=== PATIENT | male | born 1935 | race Caucasian/White ===

== ENCOUNTER → 2019-06-16 14:26 | Outpatient (CLI) | payer MEDICARE, OTHER, SELFPAY ==
--- NOTE | ~2019-06-16 | CT_ITS ---
EXAMINATION: CT cervical spine [facility] EXAM DATE: 06/16/2019 15:07 INDICATION: Partial bilateral paralysis. Neck and right shoulder pain. TECHNIQUE: Spiral CT of the cervical spine was performed without contrast. Axial images were reviewe d. Coronal and sagittal reformatted images were also reviewed. The dose-length product (DLP) for thi s examination was 341.78 mGy-cm. The exposure was tailored according to patient size (auto mA exposu re control), and iterative reconstruction (ASIR) was used as additional dose reduction technique. ere is no prior study for comparison. FINDINGS: There is moderate to severe disc disease C5-6 and C6-7, moderate at C3-4 and 4-5 and C7-T1 . The vertebral bodies are aligned in the AP dimension. The odontoid process is intact. The lateral masses of C1 line up with C2. Prevertebral soft tissue and pre-dens space are within normal limits. T here are no acute fractures identified. Paraspinal soft tissue is unremarkable. There is cardiomegal y. Level by level evaluation: C2-C3: Disc does not extend beyond the endplate margin. Uncovertebral joint arthropathy: Mild bilateral. Facet joint arthropathy: Moderate right, mild to moderate left. Neural foraminal stenosis: Mild bilateral. Central canal stenosis: No stenosis. C3-C4: There is a mild diffuse disc bulge. Uncovertebral joint arthropathy: Moderate left, mild to moderate right. Facet joint arthropathy: Severe left, moderate right. Neural foraminal stenosis: Moderate to severe left, mild to moderate right. Central canal stenosis: Mild. C4-C5: There is a mild diffuse disc bulge. Uncovertebral joint arthropathy: Moderate right, mild to moderate left. Facet joint arthropathy: Severe bilateral. Neural foraminal stenosis: Moderate left, mild to moderate right. Central canal stenosis: Mild. C5-C6: There is a moderate diffuse disc bulge. Uncovertebral joint arthropathy: Severe right, moderate to severe left. Facet joint arthropathy: Moderate bilateral. Neural foraminal stenosis: Moderate to severe bilateral. Central canal stenosis: Moderate. Central canal measures 6 mm in mid sagittal AP diameter . C6-C7: There is a moderate diffuse disc bulge. Uncovertebral joint arthropathy: Severe bilateral. Facet joint arthropathy: Moderate bilateral. Neural foraminal stenosis: Moderate to severe bilateral. Central canal stenosis: Moderate . Central canal measures 6 mm in mid sagittal AP diameter . C7-T1: There is a mild to moderate diffuse disc bulge. Uncovertebral joint arthropathy: Mild to moderate bilateral. Facet joint arthropathy: Moderate to severe bilateral. Neural foraminal stenosis: Moderate bilateral. Central canal stenosis: Mild. IMPRESSION: Advanced cervical spondylosis as detailed above. Reviewed, dictated and finalized at location A. X SOLARIS ADMINISTRATOR
== END ==
PROVIDERS: Visit Provider Orthopaedic Surgery
DX: G83.9 Paralytic syndrome, unspecified (principal); M47.892 Other spondylosis, cervical region
CPT/HCPCS: 72125

== ENCOUNTER 2019-11-03 11:53 | Inpatient (IN) | payer MEDICARE, OTHER, SELFPAY ==
[2019-11-03] VITALS (30 sets, daily range): BP systolic 121–161; BP diastolic 54–133; PULSE 37–68; RESP 12–20; TEMP 36.3–36.8; O2SAT 96–100; BMI 34.4
--- NOTE | ~2019-11-03 | XR_ITS ---
EXAMINATION: XR chest 1V portable DATE: 11/03/2019 12:27 INDICATION: Shortness of breath. TECHNIQUE: A single frontal view of the chest was obtained. COMPARISON: Chest 2 views 03/16/2019, CT abdomen and pelvis 02/07/2016 FINDINGS: Sensitivity is decreased by obesity. There is chronic mild elevation of left hemidiaphragm. There are mild airspace opacities in the lower lung zones. No pleural effusion or pneumothorax. Card iomegaly is noted. IMPRESSION: 1. Mild airspace opacities in the lower lung zones, consistent with atelectasis versus pneumonia. 2. Cardiomegaly. Reviewed, dictated and finalized at location A.
--- NOTE | ~2019-11-03 | US_ITS ---
EXAMINATION: US renal BI DATE: 11/04/2019 14:54 INDICATION: Decreased kidney function. TECHNIQUE: Multiple ultrasound grayscale images of the kidneys were obtained. COMPARISON: CT abdomen and pelvis 02/07/2016 FINDINGS: The right kidney measures 10.0 x 5.9 x 5.7 cm. The left kidney measures 10.5 x 7.3 x 4.7 cm. The kidn eys demonstrate normal parenchymal echogenicity. There are cysts in left kidney measuring up to 4.2 c m. There is no hydronephrosis. The bladder is normal. IMPRESSION: 1. Normal kidney sizes. No hydronephrosis. Reviewed, dictated and finalized at location A.
--- NOTE | ~2019-11-03 | US_ITS ---
EXAMINATION: US venous doppler [facility] DATE: 11/04/2019 14:54 INDICATION: Lower limb edema. TECHNIQUE: Grayscale ultrasound images without and with compression and Doppler ultrasound images of the bilateral lower extremity veins were obtained. COMPARISON: Ultrasound 01/22/2017 FINDINGS: The visualized portions of right common femoral vein, profunda (deep) femoral vein, femoral vein, pop liteal vein, peroneal veins, posterior tibial veins, and greater saphenous vein outflow are patent. The visualized portions of left common femoral vein, profunda femoral vein, femoral vein, popliteal v ein, peroneal veins, posterior tibial veins, and greater saphenous vein outflow are patent. IMPRESSION: 1. No deep venous thrombosis. Reviewed, dictated and finalized at location A.
--- NOTE | 2019-11-03 11:58 | ECG_ITS ---
Measurements Intervals [place] Rate: 40 P: 97 AL: 251 QRS: -40 QRSD: 125 T: 28 QT: 472 QTc: 387 Interpretive Statements ATRIAL FLUTTER WITH SLOW VENTRICULAR RESPONSE LEFT AXIS DEVIATION RIGHT BUNDLE BRANCH BLOCK INFERIOR INFARCT, AGE INDETERMINATE BASELINE ARTIFACT- I, II, III, AVR ABNORMAL ECG Electronically Signed On 11-03-2019 12:58:22 CDT by Alvaro Kim D.O.
[2019-11-03 12:48] LABS: Basophils Percent Auto 0.3 % (0.2-1.2); Eosinophils Absolute Auto 0.1 K/mm3 (0-0.3); Eosinophils Percent Auto 0.5 % (0-4.4); Hematocrit 32.2 % (42.0-52.0); Immature Granulocyte Absolute 0.12 K/mm3 (0.00-0.031); Lymphocytes Absolute Auto 0.96 K/mm3 (0.9-3.2); Lymphocytes Percent Auto 8.2 % (18.3-44.2); Mean Corpuscular HGB Conc 31.1 g/dl (32-36); Mean Corpuscular Hemoglobin 26.5 pg (26-34); Mean Corpuscular Volume 85.4 fl (80-100); Mean Platelet Volume 10.2 fl (7.4-10.4); Monocytes Absolute Auto 0.7 K/mm3 (0.1-0.6); Monocytes Percent Auto 5.7 % (2.6-8.5); Neutrophils Absolute Auto 9.8 K/mm3 (1.3-6.7); Neutrophils Percent Auto 84.3 % (45.5-73.1); Platelet Count Result 213 k/mm3 (150-375); Red Blood Count 3.77 M/mm3 (4.6-6.20); Red Cell Distribution Width 15.3 % (11.5-14.5); White Blood Count 11.7 K/mm3 (4.5-10.0)
[2019-11-03 12:58] LABS: Prothrombin Time 12.9 Seconds (11.1-14.7)
[2019-11-03 13:00] LABS: Alanine Aminotransferase 16 U/L (4-50); Alkaline Phosphatase 114 U/L (38-126); Aspartate Amino Transferase 25 U/L (17-59); Bilirubin,Total 0.3 mg/dL (0.2-1.3); Blood Urea Nitrogen 33 mg/dL (9-20); Calcium 7.8 mg/dL (8.4-10.2); Carbon Dioxide 25 mmol/L (22-30); Chloride 92 mmol/L (98-107); Estimated CRCL calculation 36 ml/min; Estimated Glomerular Filt Rate 36; Glucose 96 mg/dL (75-110); Potassium 5.9 mmol/L (3.4-5.0); Sodium 127 mmol/L (137-145)
[2019-11-03 13:01] LABS: D Dimer 0.86 ug/mL (<0.48)
[2019-11-03 13:12] LABS: NT Pro B Type Natriuretic Pept 4770 PG/ML (5-100); Troponin I < 0.012 ng/mL (0.000-0.034)
--- NOTE | 2019-11-03 14:05 | ED.GENADULT ---
HPI - General Adult General Chief complaint: Shortness of Breath/Dyspnea Stated complaint: SOB Time Seen by Provider: 11/03/19 11:57 Source: patient Mode of arrival: EMS Limitations: no limitations History of Present Illness HPI narrative: 84-year-old senior care resident with a history of hypertension, diabetes, CHF, DU, or bradycardia was brought in from senior care with complaints of shortness of breath since early this morning. Patient states that he thought he was having an anxiety reaction however his symptoms persisted for quite some time. He was seen by Dr. Bernard who later sent the patient here for evaluation. Patient presently denies any chest pain. He complains of mild shortness of breath compared to morning. He denies any fever or chills. As per Dr. Bernard there is no COVID exposure at the place where he was living. Onset (ago): hour(s) (6) Exacerbating factors: none Related Data Home Medications Medication Instructions Recorded Confirmed amlodipine 5 mg PO DAILY 11/03/19 aspirin [Adult Aspirin Regimen] 81 mg PO DAILY 11/03/19 atenolol 50 mg PO DAILY 11/03/19 atorvastatin 20 mg PO DAILY 11/03/19 cetirizine 5 mg PO DAILY 11/03/19 clopidogrel 75 mg PO DAILY 11/03/19 docusate calcium 240 mg PO DAILY 11/03/19 finasteride 5 mg PO DAILY 11/03/19 furosemide 20 mg PO DAILY 11/03/19 gabapentin 300 mg PO HS 11/03/19 11/03/19 melatonin 5 mg PO HS PRN 11/03/19 omeprazole 40 mg PO DAILY 11/03/19 polyethylene glycol 3350 17 g PO DAILY PRN 11/03/19 ropinirole 1 mg PO BID 11/03/19 sertraline 50 mg PO DAILY 11/03/19 tramadol 50 mg PO Q6H PRN 11/03/19 Allergies Allergy/AdvReac Type Severity Reaction Status Date / Time codeine Allergy Unknown Unknown Verified 04/01/19 15:59 hydrocodone Allergy Unknown Unknown Verified 04/01/19 15:59 Sulfa (Sulfonamide Allergy Unknown Unknown Verified 04/01/19 15:59 Antibiotics) Review of Systems Review of Systems: All systems reviewed & are unremarkable except as noted in HPI and below Constitutional: Constitutional: Reports no additional constitutional complaints Eyes: Eyes: Reports no additional eye complaints ENT: Reports system reviewed and no additional complaints, except as documented Cardiovascular: Cardiovascular: Reports no additional cardiovascular complaints Respiratory: Respiratory: Reports as per HPI Musculoskeletal: Musculoskeletal: Reports no additional musculoskeletal complaints Integumentary/Breasts: Skin/Breast: Reports system reviewed and no additional complaints, except as docu Neurologic: Reports system reviewed and no additional complaints, except as documented Psychiatric: Psychiatric: Reports no additional psychiatric complaints Endocrine: Endocrine: Reports no additional endocrine complaints PMFSH Past Medical History Medical History Anemia Anxiety Arthritis bilateral hands Back pain BPH (benign prostatic hyperplasia) Cataracts, bilateral DDD (degenerative disc disease) C7 Depression Diabetes DJD of shoulder Fractures lt fibula GERD (gastroesophageal reflux disease) GI bleed History of left common carotid artery stent placement Hyperlipidemia Hypertension UTI (urinary tract infection) Surgical History Surgical History H/O elbow surgery for abscess Hx of appendectomy Hx of cataract surgery Hx of hernia repair Family History Family History Father Family history of heart disease in male family member before age 55 Mother Family history of heart disease in male family member before age 55 Social History Social History Smoking end date: 04/28/78 Alcohol intake: never Gender identity (if verbalized by the patient): Male Exam Narrative: Exam Narrative: GENERAL: Well-appearing, well-nou
[2019-11-03] MEDS: FUROSEMIDE INJ 40 MG/4 ML VIAL IV PUSH (14:33)
--- NOTE | 2019-11-03 18:03 | ECG_ITS ---
Measurements Intervals [place] Rate: 51 P: CA: 0 QRS: -39 QRSD: 158 T: 8 QT: 510 QTc: 473 Interpretive Statements ATRIAL FLUTTER/TACHYCARDIA WITH SLOW VENTRICULAR RESPONSE LEFT AXIS DEVIATION RIGHT BUNDLE BRANCH BLOCK INFERIOR INFARCT, AGE INDETERMINATE ABNORMAL ECG Electronically Signed On 11-04-2019 7:21:07 CDT by Alvaro Kim D.O.
--- NOTE | 2019-11-03 18:05 | PM.IMHP ---
H&P: HPI History of Present Illness Chief complaint: chf Narrative: Cristi Shelton is a 84 year old male who resides at [facility] as [facility]. The patient has a history of congestive heart failure and typically sleeps on 3 pillows at night. He cannot lie flat. He does not typically wear oxygen. The patient came to the emergency room because of shortness of breath since this morning. The patient has been here previously approximately 1 year ago in [facility]. Patient was noted to have a history of bradycardia since then. He is on a beta-kaela. Patient thought he was having in the anxiety reaction this morning. No fever no chills no cough. Patient has not had any COVID exposure chest x-ray was read as mild airspace opacities in the lower lung zones consistent with atelectasis versus pneumonia. Cardiomegaly. Heart rate has been dropping down in the 30s and 40s. Patient complained about being constipated. 1.8 today which is his baseline. Potassium 5.9. An aspirin and IV Lasix in the emergency room. Date of service 11/03/2019 Review of Systems Review of Systems: All systems reviewed & are unremarkable except as noted in HPI and below Constitutional: Constitutional: Reports as per HPI and Reports no additional constitutional complaints Eyes: Eyes: Reports as per HPI and Reports no additional eye complaints ENT: Reports system reviewed and no additional complaints, except as documented and Reports Normal hearing present Cardiovascular: Cardiovascular: Reports no additional cardiovascular complaints Respiratory: Respiratory: Reports no additional respiratory complaints and Reports no additional respiratory complaints Gastrointestinal: Gastrointestinal: Reports as per HPI and Reports no additional gastrointestinal complaints Musculoskeletal: Musculoskeletal: Reports no additional musculoskeletal complaints Integumentary/Breasts: Skin/Breast: Reports system reviewed and no additional complaints, except as docu and Reports as per HPI Neurologic: Reports system reviewed and no additional complaints, except as documented, Reports as per HPI and Reports Normal hearing present Psychiatric: Psychiatric: Reports no additional psychiatric complaints and Reports as per HPI Endocrine: Endocrine: Reports no additional endocrine complaints Hematologic/Lymphatic: Hematologic/Lymphatic: Reports no additional hematologic/lymphatic complaints Allergic/Immunologic: Allergic/Immunologic: Reports no additional allergic/immunologic complaints [facility] Past Medical History Medical History (Updated 11/03/19 @ 18:21 by Nery Dumont NP) Anemia Anxiety Arthritis bilateral hands Back pain Bladder cancer BPH (benign prostatic hyperplasia) Cataracts, bilateral Chronic kidney disease, stage 3 DDD (degenerative disc disease) C7 Depression Diabetes DJD of shoulder Fractures lt fibula GERD (gastroesophageal reflux disease) GI bleed History of left common carotid artery stent placement Hyperlipidemia Hypertension Somatic dysfunction of left upper extremity 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 UTI (urinary tract infection) Surgical History Surgical History (Updated 11/03/19 @ 18:21 by Nery Dumont NP) H/O elbow surgery for abscess H/O endarterectomy Left carotid History of carpal tunnel surgery of left wrist History of colon surgery Hx of appendectomy Hx of cataract surgery Hx of hernia repair Bilateral inguinal Family History Family History Father Family history of heart disease in male family member before age 55 Mother Family history of heart disease in male family member before age 55 Social History Social History (Updated 11/03/19 @ 18:25 by Nery Dumont NP) Social History: The patient resides at [facility]. He lives with his and that is his durable p
[2019-11-03] MEDS: MAGNESIUM HYDROXIDE SUSP 30 ML UDC PO (18:31)
[2019-11-03 19:02] LABS: Blood Urea Nitrogen 35 mg/dL (9-20); Calcium 7.8 mg/dL (8.4-10.2); Carbon Dioxide 20 mmol/L (22-30); Chloride 96 mmol/L (98-107); Estimated CRCL calculation 36 ml/min; Estimated Glomerular Filt Rate 36; Glucose 130 mg/dL (75-110); Potassium 5.4 mmol/L (3.4-5.0); Sodium 126 mmol/L (137-145)
[2019-11-03] MEDS: SODIUM POLYSTYRENE SULFONONATE 15 GM/60 ML BTL PO (20:30)
[2019-11-03] MEDS: GABAPENTIN 300 MG CAPSULE PO (21:28)
[2019-11-03 22:31] LABS: Blood Urea Nitrogen 36 mg/dL (9-20); Carbon Dioxide 16 mmol/L (22-30); Chloride 97 mmol/L (98-107); Estimated CRCL calculation 34 ml/min; Estimated Glomerular Filt Rate 34; Glucose 120 mg/dL (75-110); Potassium 5.4 mmol/L (3.4-5.0); Sodium 128 mmol/L (137-145)
[2019-11-04] VITALS (13 sets, daily range): BP systolic 115–137; BP diastolic 41–61; PULSE 42–82; RESP 18–24; TEMP 36.1–36.9; O2SAT 92–99
--- NOTE | 2019-11-04 | ECHO_ITS ---
Patient Info Name: Cristi Shelton Age: 84 years : 1935 Gender: Male Ht: 72 in Wt: 253 lbs BSA: 2.45 m2 HR: 56 bpm BP: 115 / 59 mmHg Heart Rhythm: Atrial Flutter, Bradycardia Technical Quality: Poor Exam Date: 11/04/2019 3:10 PM Exam Location: [facility] Card Pulmonary Patient Status: Inpatient Admit Date: 11/03/2019 Staff Ordering Physician: Nery Dumont NP Senior Underwriting Assistant: Mariama Peña RDCS Attending Provider: Shirley Cabrales PA-C Referring Physician: Julia DELEON; Exam Type: CA echo dop color flow w con Study Info Indications I51.9 - Heart disease, unspecified Complete two-dimensional, color flow and Doppler transthoracic echocardiogram is performed with contrast to opacify the left ventricle and to improve the deliniation of the left ventricle endocardial borders. Contrast/Agitated Saline Contrast/Ag. Saline: Definity Amount: 1.00 ml Administered By: Ted Duncan RN Reason for Poor Study: patient body habitus Summary 1. Left ventricular chamber dimension is moderately enlarged. 2. Left ventricular systolic function is normal, estimated at 65-70%. 3. There is mildly increased left ventricular wall thickness. 4. The left ventricular diastolic function is indeterminate. 5. Left atrial chamber dimension is moderate to severely enlarged. 6. Right atrial chamber dimension is moderately enlarged. 7. There is no aortic valve stenosis. 8. There is mild mitral valve regurgitation. 9. There is mild tricuspid valve regurgitation. 10. No pulmonary hypertension, estimated pulmonary arterial systolic pressure is 27 mmHg. Left Ventricle Left ventricular chamber dimension is moderately enlarged. Left ventricular systolic function is normal, estimated at 65-70%. There is mildly increased left ventricular wall thickness. The left ventricular diastolic function is indeterminate. Right Ventricle Right ventricular chamber dimension is moderately enlarged. Right ventricular systolic function is normal. Left Atria Left atrial chamber dimension is moderate to severely enlarged. Right Atria Right atrial chamber dimension is moderately enlarged. Aortic Valve The aortic valve is trileaflet. There is mild aortic valve sclerosis. There is no aortic valve stenosis. There is no aortic valve regurgitation. Pulmonic Valve The pulmonic valve is not well visualized. There is trace pulmonic regurgitation. Mitral Valve The mitral valve has normal leaflets. There is mild mitral valve regurgitation. The mitral valve annulus is moderately calcified. Tricuspid Valve The tricuspid valve leaflets are normal. There is mild tricuspid valve regurgitation. No pulmonary hypertension, estimated pulmonary arterial systolic pressure is 27 mmHg. Pericardium/Pleural The pericardium appears not well visualized. Inferior Vena Cava Normal inferior vena cava with >50% collapse upon inspiration consistent with normal right atrial pressure, 5 mmHg. Aorta The aortic root size at the sinus of Valsalva is normal. The prox ascending aorta size is normal. Left Ventricular Outflow Tract Name Value Normal LVOT 2D LVOT Diameter 2.10 cm
[2019-11-04 07:59] LABS: Basophils Percent Auto 0.2 % (0.2-1.2); Eosinophils Absolute Auto 0.2 K/mm3 (0-0.3); Eosinophils Percent Auto 2.4 % (0-4.4); Hematocrit 30.6 % (42.0-52.0); Hemoglobin 9.7 g/dL (14.0-18.0); Immature Granulocyte Absolute 0.08 K/mm3 (0.00-0.031); Immature Granulocyte Percent A 0.8 % (0-0.5); Immature Platelet Fraction Pct 3.3 % (0.9-11.2); Lymphocytes Absolute Auto 0.79 K/mm3 (0.9-3.2); Lymphocytes Percent Auto 8.2 % (18.3-44.2); Mean Corpuscular HGB Conc 31.7 g/dl (32-36); Mean Corpuscular Hemoglobin 26.1 pg (26-34); Mean Corpuscular Volume 82.5 fl (80-100); Mean Platelet Volume 10.7 fl (7.4-10.4); Monocytes Absolute Auto 0.7 K/mm3 (0.1-0.6); Monocytes Percent Auto 7.1 % (2.6-8.5); Neutrophils Absolute Auto 7.8 K/mm3 (1.3-6.7); Neutrophils Percent Auto 81.3 % (45.5-73.1); Platelet Count Result 173 k/mm3 (150-375); Red Blood Count 3.71 M/mm3 (4.6-6.20); White Blood Count 9.6 K/mm3 (4.5-10.0)
[2019-11-04 08:01] LABS: Blood Urea Nitrogen 36 mg/dL (9-20); CRP 4.3 mg/dL (<1.0); Calcium 7.6 mg/dL (8.4-10.2); Carbon Dioxide 23 mmol/L (22-30); Chloride 94 mmol/L (98-107); Estimated CRCL calculation 36 ml/min; Estimated Glomerular Filt Rate 36; Glucose 96 mg/dL (75-110); Lipase 43 U/L (23-300); Magnesium 2.3 mg/dL (1.6-2.3); Potassium 5.3 mmol/L (3.4-5.0); Sodium 126 mmol/L (137-145)
[2019-11-04] MEDS: ATORVASTATIN 20 MG TABLET PO (09:22)
[2019-11-04] MEDS: AMLODIPINE BESYLATE 5 MG TABLET PO (09:22)
[2019-11-04] MEDS: ASPIRIN 81 MG CHEWABLE TABLET PO (09:22)
[2019-11-04] MEDS: DOCUSATE SODIUM 100 MG CAPSULE PO (09:22)
[2019-11-04] MEDS: CLOPIDOGREL BISULFATE 75 MG TABLET PO (09:22)
[2019-11-04] MEDS: LORATADINE 10 MG TABLET PO (09:23)
[2019-11-04] MEDS: PANTOPRAZOLE 40 MG TABLET PO (09:23)
[2019-11-04] MEDS: FINASTERIDE 5 MG TABLET PO (09:23)
[2019-11-04] MEDS: FUROSEMIDE INJ 40 MG/4 ML VIAL IV PUSH ×2 (09:23→20:12)
[2019-11-04] MEDS: SERTRALINE HCL 50 MG TABLET PO (09:23)
--- NOTE | 2019-11-04 09:52 | PM.IMPN ---
Progress Note: A&P Assessment and Plan (1) Shortness of breath: Code(s): R06.02 - Shortness of breath Status: Acute Assessment and Plan: Patient presented to the emergency room for shortness of breath. The patient is a new onset atrial flutter and his D-dimer was elevated at 0.86. Venous Dopplers have been ordered to rule out DVT V/Q scan has been ordered to rule out PE Otherwise the patient does appear to be in acute diastolic congestive heart failure with lower extremity edema and is being diuresed at this time. Currently the patient is on 4 L of oxygen with 99% saturation. Told the nurse to wean oxygen as tolerated to prevent elevated CO2 levels. Will continue monitoring the patient's respiratory status and wean oxygen as tolerated. (2) New onset atrial flutter: Code(s): I48.92 - Unspecified atrial flutter Status: Acute Assessment and Plan: Patient denies any history of atrial flutter in the past and he is not on any anticoagulation. Patient had 2 EKGs in ER showing atrial flutter with a bradycardic heart rate. Telemetry shows atrial flutter with a heart rate of 55 beats per minute. Will start the patient on Lovenox injections for the treatment of atrial flutter. Cardiology has been consulted for new onset atrial flutter, bradycardia and their input is greatly appreciated. (3) Bradycardia: Code(s): R00.1 - Bradycardia, unspecified Status: Chronic Assessment and Plan: Patient was found to be bradycardic with a heart rate in the 30s and 40s at times. Patient is on atenolol at home. Patient EKG shows atrial flutter with a bradycardic heart rate. Patient has no history of atrial flutter in our computer system and is not on any anticoagulation for this. We have held his atenolol due to bradycardia we will see if his heart rate improves. Cardiology was consulted for bradycardia and new onset atrial flutter and their input is greatly appreciated. (4) Congestive heart failure: Qualifiers: Heart failure chronicity: acute on chronic Heart failure type: diastolic Qualified Code(s): I50.33 - Acute on chronic diastolic (congestive) heart failure Code(s): I50.9 - Heart failure, unspecified Status: Chronic Assessment and Plan: Acute on chronic diastolic congestive heart failure exacerbation Patient takes oral Lasix 20 mg at his group home. He presented to the emergency room with worsening shortness of breath and trouble laying flat. BNP was elevated at 4770. He has significant lower extremity edema and was started on IV Lasix 40 mg b.i.d. We will repeat an echocardiogram for further evaluation with heart. We will order venous Dopplers to rule out DVT since the patient is in new onset atrial flutter We are holding his beta-kaela due to significant bradycardia He does not appear to be on an Adrian or an Arb at this time. Cardiology has been consulted for further evaluation in their input is greatly appreciated. Will continue monitoring patient's will continue monitoring the patient's fluid status. Strict I&Os. Monitor renal function. (5) Chronic kidney disease, stage 3: Code(s): N18.3 - Chronic kidney disease, stage 3 (moderate) Status: Chronic Assessment and Plan: Patient is at his baseline Creatinine on arrival was 1.9 and today was 1.8 which is stable. Continue monitoring his creatinine while we diuresing with IV Lasix. (6) Hyperkalemia: Code(s): E87.5 - Hyperkalemia Status: Acute Assessment and Plan: Patient had hyperkalemia since arrival. Initially it was 5.9 and he was given Kayexalate. This morning the patient potassium is 5.3. I will also administer another Kayexalate
[2019-11-04 09:58] LABS: Add Urine Microscopic? NO; Appearance Urine Clear (Clear); Bilirubin Urine Negative (Negative); Blood Urine Negative (Negative); Color Urine Yellow (Yellow); Glucose Urine UA Negative (Negative); Ketones Urine Negative (Negative); Leukocyte Esterase Ur Negative LEU/UL (Negative); Nitrate Urine Negative (Negative); Protein Urine Negative (Negative); Specific Grav Ur 1.012 (1.001-1.035); Urobilinogen Urine Negative mg/dL (<2.0)
[2019-11-04] MEDS: FLUTICASONE PROPIONATE 0.05% NA SPR 16 GM BTL (*BKC) 1 SPRAY NASAL ×2 (10:07→20:12)
[2019-11-04] MEDS: ENOXAPARIN 120 MG/0.8 ML SYRINGE 115 MG SUB-Q (11:58)
[2019-11-04] MEDS: SODIUM POLYSTYRENE SULFONONATE 15 GM/60 ML BTL PO (11:58)
[2019-11-04 12:45] LABS: Creatinine Urine 78.5 mg/dL
[2019-11-04 12:49] LABS: Sodium Urine Random 39 meq/L
--- NOTE | 2019-11-04 13:10 | PM.CNNEP ---
Assessment and Plan Assessment and plan (1) Chronic kidney disease, stage 3: Code(s): N18.3 - Chronic kidney disease, stage 3 (moderate) Status: Chronic (2) Hyponatremia: Code(s): E87.1 - Hypo-osmolality and hyponatremia Status: Acute Assessment and Plan: Altered has chronic kidney disease. His creatinine has been in the high 1s since mid 2019. Most likely this is related to his diabetes and hypertension. He might have some vascular disease in the kidneys as well. Obstruction is always a possibility but I doubt that his prostate is this bad since he does not have that many symptoms from it. Other causes of kidney disease include glomerulonephritis, interstitial nephritis, and infiltrative diseases. I will screen for these test but he does not have any signs or symptoms of those disorders. Will get serology, immunofixation, renal ultrasound, and a urinalysis. (3) Hyperkalemia: Code(s): E87.5 - Hyperkalemia Status: Acute Assessment and Plan: His potassium is slightly high. Patient also has a mildly low bicarbonate off and on. 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 We can check an aldosterone and renin level to look at this. He is already on Lasix which can bring potassium down. Will put him on a low-potassium diet. (4) Hypertension: Code(s): I10 - Essential (primary) hypertension Status: Chronic Assessment and Plan: His blood pressure is doing very well right now. (5) Diabetes: Code(s): E11.9 - Type 2 diabetes mellitus without complications Status: Chronic Assessment and Plan: He is on Accu-Cheks and sliding-scale insulin (6) Anemia: Code(s): D64.9 - Anemia, unspecified Status: Chronic Assessment and Plan: His hemoglobin is 9.7. Will check iron B12 and folate. (7) Bradycardia: Code(s): R00.1 - Bradycardia, unspecified Status: Chronic Assessment and Plan: Cardiology is being consulted. I do not think his potassium is high enough to cause this. (8) Congestive heart failure: Qualifiers: Heart failure chronicity: acute on chronic Heart failure type: diastolic Qualified Code(s): I50.33 - Acute on chronic diastolic (congestive) heart failure Code(s): I50.9 - Heart failure, unspecified Status: Chronic Assessment and Plan: Cardiology is being consulted. He does have some swelling. Venous Dopplers are negative. V/Q scan is indeterminate. He is on amlodipine which can add to the swelling. He also could have proteinuria. Will stop the amlodipine and check the urine. We can use something else for his blood pressure. History of Present Illness Reason for Consult Consult date: 11/04/19 Chief Complaint Chief complaint: chf History of Present Illness Narrative: Bernabe is a very pleasant 84-year-old gentleman who has chronic kidney disease, hyponatremia, hypertension, congestive heart failure, diabetes, BPH, edema, GERD, depression. He lives at a retirement and has been doing pretty well. He says however that he became short of breath in the last day or 2. He was sent to [place] for evaluation because of this. He was evaluated in the emergency room and found to have an elevated creatinine so renal consultation was requested. Patient denies any kidney symptoms. He has had no bloody urine, foamy urine, kidney stones, or bladder infections. He has never been told by Dr. rojas that he had kidney problems but he has had mild chronic kidney disease for a while. He says he has had swelling often on for a long time. It is a little bit worse than usual. He has had problems with congestive heart failure in the past, and has been on furosemide for this. He had an echocardiogram done in 2018 which showed good LV function but he did have diastolic dysfunction. The right-side of his heart seemed to be okay by their description. The patient has diabetes. H
--- NOTE | 2019-11-04 14:28 | PC.NURSE ---
Patient returned from radiology and received call from Norma in nuclear medicine. She states patient refused to complete test because he felt short of breath every time the HOB was lowered. Called Shirley DELAROSA and notified her of same.
--- NOTE | 2019-11-04 14:37 | PM.CNCAR ---
Assessment and Plan Assessment and plan (1) New onset atrial flutter: Code(s): I48.92 - Unspecified atrial flutter Status: Acute Assessment and Plan: Atrial flutter, chronicity unknown variable AV block. Bradycardic response heart rate 40s to 50s generally, underlying RBBB. Atenolol 50 mg daily at home which has been held. Continue to hold AV tracy blocking agents. Unlikely he will require re-initiation for heart rate control. Discussed management options including rate control versus rhythm control. Will continue to observe without plans for immediate cardioversion. CHADS2 Vasc score 5. Systemic anticoagulation advised unless contraindicated. Transition to oral regimen Eliquis 2.5 mg twice daily (age over 80, creatinine greater than 1.5). Potassium mildly elevated at presentation, hyponatremia persistent. TSH 1.150 stable. Troponin negative x1. There is no indication for pacemaker at this time. No evidence of prolonged/pathologic pauses or high-grade AV block thus far. He clearly has sick sinus syndrome with underlying right bundle-branch block and slow ventricular response and atrial flutter. Conservative management is recommended at this time as patient is relatively asymptomatic in this regard. If he develops significant tachycardia off AV tracy blocking agents this may change our management. Further recommendations to follow. (2) Bradycardia: Code(s): R00.1 - Bradycardia, unspecified Status: Chronic Assessment and Plan: Patient hemodynamically stable, asymptomatic. Off AV tracy blocking agents. (3) Congestive heart failure: Qualifiers: Heart failure chronicity: acute on chronic Heart failure type: diastolic Qualified Code(s): I50.33 - Acute on chronic diastolic (congestive) heart failure Code(s): I50.9 - Heart failure, unspecified Status: Chronic Assessment and Plan: Acute decompensated heart failure most likely with preserved ejection fraction. 2D echocardiogram pending. Further recommendations to follow. Will assess for valvular heart disease, pulmonary hypertension, chamber size and LV function. Continue IV Lasix. Accurate input and output, daily weight. CHF counseling. Compliance with medications and blood pressure control. Screen for obstructive sleep apnea clinically indicated. Renal function electrolytes closely. (4) Hypertension: Code(s): I10 - Essential (primary) hypertension Status: Chronic Assessment and Plan: Fair control overall. I agree ROHITH-inhibitor/ARB potential beneficial, however, given underlying renal failure and hyperkalemia it is unlikely he will tolerate. (5) Chronic kidney disease, stage 3: Code(s): N18.3 - Chronic kidney disease, stage 3 (moderate) Status: Chronic Assessment and Plan: Stable, unchanged. Nephrology consultation appreciated. Workup underway. (6) Diabetes: Code(s): E11.9 - Type 2 diabetes mellitus without complications Status: Chronic Assessment and Plan: Per primary service. History of Present Illness History of Present Illness Consult date/time: Date of service: 11/04/19 14:37 This is a cardiology consultation at the request of Shirley Cabrales of the [facility] service for opinion regarding CHF, bradycardia and atrial flutter. Requesting physician: Shirley Cabrales PA-C Consult reason: congestive heart failure and Other (Bradycardia, atrial flutter) Reason For Visit: chf Narrative: Patient is a pleasant 84-year-old male resident of [facility] who presents with complaints of progressive shortness of breath, decreased ability to lie flat and approximately 10-15 lb weight gain with past month. He admits to worsening edema, abdominal fullness. Patient presents to the emergency department due to worsening shortness of breath. He was also noted to be bradycardic and in atrial flutter with variable AV block. Atrial flutter was
[2019-11-04 15:07] LABS: Potassium 4.5 mmol/L (3.4-5.0)
[2019-11-04 15:09] LABS: Creatine Kinase 41 U/L (55-170)
[2019-11-04 15:12] LABS: INR 1.2; Prothrombin Time 14.4 Seconds (11.1-14.7)
[2019-11-04 15:17] LABS: Complement C3 106 mg/dL (88-165)
[2019-11-04] MEDS: PERFLUTREN LIPID MICROSPHERES 1.5 ML VIAL DILUTED TO 10 ML TOTAL VOLUME IV PUSH (15:45)
[2019-11-04 15:48] LABS: Erythrocyte Sedimentation Rate 116 mm/hr (0-20); Iron 34 ug/dL (49-181)
[2019-11-04 15:58] LABS: Percent Iron Saturation 10 % (20-50)
[2019-11-04 16:16] LABS: Folic Acid 18.4 ng/mL (2.76->20)
[2019-11-04] MEDS: GABAPENTIN 300 MG CAPSULE PO (20:11)
[2019-11-04] MEDS: APIXABAN 2.5 MG TABLET PO (20:11)
[2019-11-04] MEDS: rOPINIRole HCL 1 MG TABLET PO (20:12)
[2019-11-05] VITALS (14 sets, daily range): BP systolic 113–143; BP diastolic 50–63; PULSE 40–85; RESP 14–20; TEMP 36.1–36.6; O2SAT 93–99; BMI 34.4
[2019-11-05 05:37] LABS: Basophils Percent Auto 0.2 % (0.2-1.2); Eosinophils Absolute Auto 0.4 K/mm3 (0-0.3); Eosinophils Percent Auto 3.9 % (0-4.4); Hematocrit 29.9 % (42.0-52.0); Hemoglobin 9.3 g/dL (14.0-18.0); Immature Granulocyte Absolute 0.04 K/mm3 (0.00-0.031); Immature Granulocyte Percent A 0.4 % (0-0.5); Lymphocytes Absolute Auto 1.07 K/mm3 (0.9-3.2); Lymphocytes Percent Auto 10.8 % (18.3-44.2); Mean Corpuscular HGB Conc 31.1 g/dl (32-36); Mean Corpuscular Hemoglobin 25.9 pg (26-34); Mean Corpuscular Volume 83.3 fl (80-100); Mean Platelet Volume 9.9 fl (7.4-10.4); Monocytes Absolute Auto 0.7 K/mm3 (0.1-0.6); Monocytes Percent Auto 6.8 % (2.6-8.5); Neutrophils Absolute Auto 7.7 K/mm3 (1.3-6.7); Neutrophils Percent Auto 77.9 % (45.5-73.1); Platelet Count Result 187 k/mm3 (150-375); Red Blood Count 3.59 M/mm3 (4.6-6.20); White Blood Count 9.9 K/mm3 (4.5-10.0)
[2019-11-05 05:51] LABS: Albumin Level 3.8 g/dL (3.5-5.1); Blood Urea Nitrogen 36 mg/dL (9-20); CRP 6.5 mg/dL (<1.0); Calcium 7.8 mg/dL (8.4-10.2); Carbon Dioxide 27 mmol/L (22-30); Chloride 92 mmol/L (98-107); Estimated CRCL calculation 34 ml/min; Estimated Glomerular Filt Rate 34; Glucose 104 mg/dL (75-110); Phosphorus 4.3 mg/dL (2.5-4.5); Potassium 4.3 mmol/L (3.4-5.0); Sodium 129 mmol/L (137-145)
[2019-11-05] MEDS: CLOPIDOGREL BISULFATE 75 MG TABLET PO (09:50)
[2019-11-05] MEDS: FLUTICASONE PROPIONATE 0.05% NA SPR 16 GM BTL (*BKC) 1 SPRAY NASAL ×2 (09:50→20:51)
[2019-11-05] MEDS: FINASTERIDE 5 MG TABLET PO (09:50)
[2019-11-05] MEDS: ATORVASTATIN 20 MG TABLET PO (09:50)
[2019-11-05] MEDS: LORATADINE 10 MG TABLET PO (09:50)
[2019-11-05] MEDS: DOCUSATE SODIUM 100 MG CAPSULE PO (09:50)
[2019-11-05] MEDS: APIXABAN 2.5 MG TABLET PO ×2 (09:50→20:51)
[2019-11-05] MEDS: FUROSEMIDE INJ 40 MG/4 ML VIAL IV PUSH (09:50)
[2019-11-05] MEDS: SERTRALINE HCL 50 MG TABLET PO (09:51)
[2019-11-05] MEDS: PANTOPRAZOLE 40 MG TABLET PO ×2 (09:51→20:51)
[2019-11-05] MEDS: LORazepam 0.5 MG TABLET PO ×3 (09:59→20:51)
--- NOTE | 2019-11-05 10:00 | PC.NURSE ---
Iron infusing for about 5 minutes when swollen, raised area noted above IV site. Iron stopped and IV removed. Called Jackie Moralez RN to request new IV site via ultrasound placement. Notified Shirley DELAROSA and orders received to change IV Iron to p.o.
--- NOTE | 2019-11-05 10:01 | PM.IMPN ---
Progress Note: A&P Assessment and Plan (1) Shortness of breath: Code(s): R06.02 - Shortness of breath Status: Acute Assessment and Plan: Patient presented to the emergency room for shortness of breath. The patient is a new onset atrial flutter and his D-dimer was elevated at 0.86. Venous Dopplers was negative for DVT. V/Q scan could not be completed because he cannot lay down flat for the test. The patient has been getting IV Lasix for acute CHF exacerbation. Yesterday the patient's nurse told me that she was able to wean him down to room air at rest but last night his oxygen went down while he was sleeping and they placed him back on 2 L via nasal cannula. Will continue monitoring the patient's respiratory status and wean oxygen as tolerated. (2) Suspected pulmonary embolism: Code(s): R09.89 - Other specified symptoms and signs involving the circulatory and respiratory systems Status: Acute Assessment and Plan: We still cannot rule out underlying PE on the patient since VQ could not be completed. Venous dopplers were negative for DVT. Echocardiogram showed moderately dilated RV and RA (unsure if this is new or chronic since LV and LA are also enlarged), normal pulmonary arterial pressure, no pulmonary HTN, No visualized clot seen. The patients Well's Score is a 3 which is Moderate Risk for PE. I find in the patients history that he had a GI Bleed from Gastric Ulcers 2013 and needed to be on PPI. I have talked with [facility] about the patient and informed her of his risk of PE. I will start the patient on Eliquis 10 mg BID for 7 days for treatment of suspected PE and then decreased dosing to 5 mg BID and have him follow up with his Primary Care Provider for further evaluation. (3) New onset atrial flutter: Code(s): I48.92 - Unspecified atrial flutter Status: Acute Assessment and Plan: Patient EKG shows atrial flutter with a bradycardic heart rate. Patient has no history of atrial flutter in our computer system. Patient denies any history of atrial flutter in the past and he is not on any anticoagulation. Patient had 2 EKGs in ER showing atrial flutter with a bradycardic heart rate. Telemetry shows NSR with HR 87 bpm and intermittent atrial flutter with bradycardia. Cardiology recommends to stop AV bianca blocking agents. No plans for cardioversion. Started the patient on Eliquis anticoagulation. CHADS2 Vasc was 5. Continue monitoring. Cardiology has been consulted for new onset atrial flutter, bradycardia and their input is greatly appreciated. (4) Bradycardia: Code(s): R00.1 - Bradycardia, unspecified Status: Chronic Assessment and Plan: Patient was found to be bradycardic with a heart rate in the 30s and 40s at times. Patient is on atenolol at home. Discontinued AV Bianca blocking agent. Cardiology recommended continue monitoring the patient. No indication for pacemaker at this time. Continue monitoring Sick Sinus Syndrome and the patient is asymptomatic. We have held his atenolol due to bradycardia we will see if his heart rate improves. Cardiology was consulted for bradycardia and new onset atrial flutter and their input is greatly appreciated. (5) Congestive heart failure: Qualifiers: Heart failure chronicity: acute on chronic Heart failure type: diastolic Qualified Code(s): I50.33 - Acute on chronic diastolic (congestive) heart failure Code(s): I50.9 - Heart failure, unspecified Status: Chronic Assessment and Plan: Acute on chronic diastolic congestive heart failure exacerbation Patient takes oral Lasix 20 mg at his alf. He presented to the emergency room with worsening shortness of breath and trouble laying flat. BNP was lindsey
[2019-11-05] MEDS: MAGNESIUM CITRATE 300 ML BTL 150 ML PO (11:34)
[2019-11-05] MEDS: FERROUS SULFATE 324 MG TABLET PO ×2 (11:35→17:28)
[2019-11-05] MEDS: APIXABAN 2.5 MG TABLET 7.5 MG PO (11:35)
--- NOTE | 2019-11-05 13:53 | PCRCNOTE ---
Unable to obtain an ABG x 4 tries. Two therapists attempted; R.N. Notified.
--- NOTE | 2019-11-05 16:00 | PM.PNCARD ---
Progress Note: A&P Assessment and Plan (1) New onset atrial flutter: Code(s): I48.92 - Unspecified atrial flutter Status: Acute Assessment and Plan: Atrial flutter, chronicity unknown variable AV block. Bradycardic response heart rate 40s to 50s generally, underlying RBBB. Atenolol 50 mg daily at home has been discontinued. Unlikely he will require re-initiation for heart rate control. Rate control versus rhythm control has been chosen. No plans for immediate cardioversion. No indication for pacemaker at this time. CHADS2 Vasc score 5. Systemic anticoagulation advised unless contraindicated. Eliquis 2.5 mg twice daily (age over 80, creatinine greater than 1.5). Conservative management as he is relatively asymptomatic. If he develops significant tachycardia off AV tracy blocking agents this may change our management. When he returns to [place] heart rates should be monitored at least twice per day. He states he does not want a varnish melter helper and at the facility sees him regularly. (2) Bradycardia: Code(s): R00.1 - Bradycardia, unspecified Status: Chronic Assessment and Plan: Hemodynamically stable, asymptomatic. Off AV tracy blocking agents heart rate has improved. Remains in atrial flutter. . (3) Congestive heart failure: Qualifiers: Heart failure chronicity: acute on chronic Heart failure type: diastolic Qualified Code(s): I50.33 - Acute on chronic diastolic (congestive) heart failure Code(s): I50.9 - Heart failure, unspecified Status: Chronic Assessment and Plan: Heart failure with preserved ejection fraction. Echocardiogram 11/04/2019: Left ventricular chamber dimension is moderately enlarged. Left ventricular systolic function is normal, estimated at 65-70%. There is mildly increased left ventricular wall thickness. The left ventricular diastolic function is indeterminate. Left atrial chamber dimension is moderate to severely enlarged.. Right atrial chamber dimension is moderately enlarged. There is no aortic valve stenosis. There is mild mitral valve regurgitation. There is mild tricuspid valve regurgitation. No pulmonary hypertension, estimated pulmonary arterial systolic pressure is 27 mmHg.. He does not seem to be significantly volume overloaded at this time. Laying relatively flat in bed on room air. No conversational dyspnea. Denies shortness of breath with exertional activity. Will stop IV Lasix. Re-evaluate need for increased dose at discharge (4) Hypertension: Qualifiers: Hypertension type: essential hypertension Qualified Code(s): I10 - Essential (primary) hypertension Code(s): I10 - Essential (primary) hypertension Status: Chronic Assessment and Plan: Fair control overall. ROHITH-inhibitor/ARB potential beneficial, however, given underlying renal failure and hyperkalemia it is unlikely he will tolerate. (5) Chronic kidney disease, stage 3: Code(s): N18.3 - Chronic kidney disease, stage 3 (moderate) Status: Chronic Assessment and Plan: Stable, unchanged. Nephrology consultation appreciated. Workup underway. (6) Diabetes: Code(s): E11.9 - Type 2 diabetes mellitus without complications Status: Chronic Assessment and Plan: Per primary service. Additional Plan Plan discussed Dr. Helms [id number] 11/05/2019 Subjective Date/time seen: 11/05/19 16:00 Interval history: Follow-up for: Atrial flutter with variable block of unknown duration, be bradycardia, heart failure with preserved ejection fraction, hypertension, CKD stage 3 Date of service: 11/05/2019 Subjective: Sleeping soundly laying fairly flat in bed on room air. Awakens easily. Denied any chest discomfort, shortness of breath,
--- NOTE | 2019-11-05 16:00 | PM.PNNEP ---
Progress Note: A&P Assessment and Plan (1) Chronic kidney disease, stage 3: Code(s): N18.3 - Chronic kidney disease, stage 3 (moderate) Status: Chronic Assessment and Plan: Bernabe has chronic kidney disease. His creatinine has been in the high 1s since mid 2019. Urinalysis is bland And urine electrolytes are non pre renal. Await serology and immunofixation. Most likely this is related to his diabetes and hypertension. (2) Hyponatremia: Code(s): E87.1 - Hypo-osmolality and hyponatremia Status: Acute Assessment and Plan: Sodium level is slightly low. Are non pre renal. Await immunofixation. Cortisol and TSH are okay. (3) Hyperkalemia: Code(s): E87.5 - Hyperkalemia Status: Acute Assessment and Plan: His potassium is better this time. Tests still pending. No sign of obstruction. Brain CT is unremarkable. Chest x-ray is unremarkable. No history of cancer. (4) Hypertension: Code(s): I10 - Essential (primary) hypertension Status: Chronic Assessment and Plan: His blood pressure is doing very well right now. (5) Diabetes: Code(s): E11.9 - Type 2 diabetes mellitus without complications Status: Chronic Assessment and Plan: He is on Accu-Cheks and sliding-scale insulin (6) Anemia: Code(s): D64.9 - Anemia, unspecified Status: Chronic Assessment and Plan: His hemoglobin is 9.7. Will check iron B12 and folate. (7) Bradycardia: Code(s): R00.1 - Bradycardia, unspecified Status: Chronic Assessment and Plan: Cardiology is being consulted. I do not think his potassium is high enough to cause this. (8) Congestive heart failure: Qualifiers: Heart failure chronicity: acute on chronic Heart failure type: diastolic Qualified Code(s): I50.33 - Acute on chronic diastolic (congestive) heart failure Code(s): I50.9 - Heart failure, unspecified Status: Chronic Assessment and Plan: Cardiology is being consulted. He does have some swelling. Venous Dopplers are negative. V/Q scan is indeterminate. Echocardiogram does not show much. His blood pressure is doing really well.. I am going to stop his amlodipine. This may help his swelling. Subjective Date/time seen: 11/05/19 16:00 Interval history: Colin is feeling better today. He is eager for discharge. No more shortness of breath. Review of Systems Cardiovascular: Cardiovascular: Reports no additional cardiovascular complaints Respiratory: Respiratory: Reports no additional respiratory complaints Gastrointestinal: Gastrointestinal: Reports no additional gastrointestinal complaints Genitourinary: Genitourinary: Reports no additional male genitourinary complaints Exam Narrative: Exam Narrative: WDWN in NAD skin no rash head ncat lungs clear cor reg no rub abd BS+ nontender and soft ext no edema. Objective Data Vital Signs Vital Signs: Vital Signs - 24 hr 11/04/19 20:02 11/04/19 22:00 11/05/19 00:00 Temperature 36.9 C Pulse Rate 82 81 65 Respiratory Rate 24 H Blood Pressure 135/53 L Pulse Oximetry 92 93 11/05/19 02:00 11/05/19 04:02 11/05/19 05:48 Temperature 36.4 C 36.4 C Pulse Rate 70 83 69 Respiratory Rate 20 20 Blood Pressure 138/52 L 143/52 H Pulse Oximetry 93 96 11/05/19 08:00 11/05/19 10:30 11/05/19 11:00 Temperature 36.1 C L Pulse Rate 40 L 56 L Respiratory Rate 18 Blood Pressure 126/63 Pulse Oximetry 99 97 11/05/19 12:00 11/05/19 12:53 11/05/19 13:52 Temperature 36.6 C Pulse Rate 82 Respiratory Rate 14 Blood Pressure 113/60 Pulse Oximetry 98 97 94 Intake/Output Intake/Output: Intake & Output 11/02/19 11/03/19 11/04/19 11/05/19 23:59 23:59 23:59 23:59 Intake Total 320 1670 320 Output Total 7425 1050 Balance 052 -993 -434 Meds/Results Medications: Active Medications Generic Na
[2019-11-05] MEDS: SACCHAROMYCES BOULARDII 250 MG CAPSULE PO (17:28)
[2019-11-05] MEDS: GABAPENTIN 300 MG CAPSULE PO (20:51)
[2019-11-05] MEDS: rOPINIRole HCL 1 MG TABLET PO (20:51)
[2019-11-05] MEDS: DOXYCYCLINE HYCLATE 100 MG TABLET PO (20:51)
[2019-11-06] VITALS (12 sets, daily range): BP systolic 102–152; BP diastolic 50–73; PULSE 56–85; RESP 18–20; TEMP 36.1–36.4; O2SAT 91–100
[2019-11-06 05:31] LABS: Basophils Percent Auto 0.1 % (0.2-1.2); Eosinophils Absolute Auto 0.4 K/mm3 (0-0.3); Eosinophils Percent Auto 3.8 % (0-4.4); Hematocrit 31.7 % (42.0-52.0); Hemoglobin 9.9 g/dL (14.0-18.0); Immature Granulocyte Absolute 0.05 K/mm3 (0.00-0.031); Immature Granulocyte Percent A 0.5 % (0-0.5); Lymphocytes Absolute Auto 1.01 K/mm3 (0.9-3.2); Lymphocytes Percent Auto 11.1 % (18.3-44.2); Mean Corpuscular HGB Conc 31.2 g/dl (32-36); Mean Corpuscular Hemoglobin 26.1 pg (26-34); Mean Corpuscular Volume 83.4 fl (80-100); Mean Platelet Volume 10.1 fl (7.4-10.4); Monocytes Absolute Auto 0.8 K/mm3 (0.1-0.6); Monocytes Percent Auto 8.2 % (2.6-8.5); Neutrophils Percent Auto 76.3 % (45.5-73.1); Nucleated Red Blood Cells Perc 0.2 % (0.0-0.2); Platelet Count Result 210 k/mm3 (150-375); Red Cell Distribution Width 15.3 % (11.5-14.5); White Blood Count 9.1 K/mm3 (4.5-10.0)
[2019-11-06 05:40] LABS: Albumin Level 3.8 g/dL (3.5-5.1); Blood Urea Nitrogen 33 mg/dL (9-20); CRP 5.8 mg/dL (<1.0); Calcium 8.2 mg/dL (8.4-10.2); Carbon Dioxide 29 mmol/L (22-30); Chloride 91 mmol/L (98-107); Estimated CRCL calculation 38 ml/min; Estimated Glomerular Filt Rate 38; Glucose 108 mg/dL (75-110); Phosphorus 3.5 mg/dL (2.5-4.5); Potassium 4.1 mmol/L (3.4-5.0); Sodium 129 mmol/L (137-145)
[2019-11-06] MEDS: polyethylene glycoL 3350 17 GM POWD.PACK PO (09:00)
[2019-11-06] MEDS: FERROUS SULFATE 324 MG TABLET PO ×2 (09:00→17:13)
[2019-11-06] MEDS: SACCHAROMYCES BOULARDII 250 MG CAPSULE PO ×2 (09:00→17:13)
[2019-11-06] MEDS: PANTOPRAZOLE 40 MG TABLET PO ×2 (09:01→20:13)
[2019-11-06] MEDS: DOCUSATE SODIUM 100 MG CAPSULE PO (09:01)
[2019-11-06] MEDS: FINASTERIDE 5 MG TABLET PO (09:01)
[2019-11-06] MEDS: APIXABAN 2.5 MG TABLET PO ×2 (09:02→20:11)
[2019-11-06] MEDS: LORazepam 0.5 MG TABLET PO ×3 (09:02→20:14)
[2019-11-06] MEDS: FUROSEMIDE 40 MG TABLET PO (09:03)
[2019-11-06] MEDS: FLUTICASONE PROPIONATE 0.05% NA SPR 16 GM BTL (*BKC) 1 SPRAY NASAL ×2 (09:03→20:12)
[2019-11-06] MEDS: ATORVASTATIN 20 MG TABLET PO (09:03)
[2019-11-06] MEDS: LORATADINE 10 MG TABLET PO (09:03)
[2019-11-06] MEDS: CLOPIDOGREL BISULFATE 75 MG TABLET PO (09:03)
[2019-11-06] MEDS: SERTRALINE HCL 50 MG TABLET PO (09:04)
[2019-11-06] MEDS: DOXYCYCLINE HYCLATE 100 MG TABLET PO ×2 (09:04→20:11)
--- NOTE | 2019-11-06 10:41 | PM.DS ---
DS: Admitting Diagnosis Admitting Diagnosis Admitting Diagnosis: Acute on chronic diastolic (congestive) heart failure DS: Discharge Diagnosis Discharge Diagnosis (1) Shortness of breath: Code(s): R06.02 - Shortness of breath Status: Acute Assessment and Plan: Patient presented to the emergency room for shortness of breath. The patient is a new onset atrial flutter and his D-dimer was elevated at 0.86. Venous Dopplers was negative for DVT. V/Q scan could not be completed because he cannot lay down flat for the test. The patient has been getting IV Lasix for acute CHF exacerbation. Yesterday the patient's nurse told me that she was able to wean him down to room air at rest but last night his oxygen went down while he was sleeping and they placed him back on 2 L via nasal cannula. Patient is resting comfortably in room air at this time with oxygen saturation 96%. He denies any shortness of breath at this time. He does report slight dyspnea on exertion with getting into the chair but states this is his baseline. Patient is stable for discharge back to his detention today. Ultimately, we still cannot rule out underlying PE on the patient since VQ could not be completed. Venous dopplers were negative for DVT. Echocardiogram showed moderately dilated RV and RA (unsure if this is new or chronic since LV and LA are also enlarged), normal pulmonary arterial pressure, no pulmonary HTN, No visualized clot seen. The patients Well's Score is a 3 which is Moderate Risk for PE. I find in the patients history that he had a GI Bleed from Gastric Ulcers 2013 and needed to be on PPI. I have talked with [facility] about the patient and informed her of his risk of PE. We tried to get an ABG on the patient but he refused after having 4 sticks and it all being unsuccessful. I talked with my attending provider, Dr. Chino, about the patient's case and since he is resting comfortably on room air at this time it would be beneficial discontinue his Eliquis 2.5 mg twice a day and not to treat for a pulmonary embolism at this time. Patient understands and agrees the plan all questions answered. (2) New onset atrial flutter: Code(s): I48.92 - Unspecified atrial flutter Status: Acute Assessment and Plan: Patient EKG shows atrial flutter with a bradycardic heart rate. Patient has no history of atrial flutter in our computer system. Patient denies any history of atrial flutter in the past and he is not on any anticoagulation. Patient had 2 EKGs in ER showing atrial flutter with a bradycardic heart rate. Telemetry shows NSR with HR 83 bpm and intermittent atrial flutter without any tachycardia episodes. Cardiology recommends to stop AV bianca blocking agents. No plans for cardioversion. Started the patient on Eliquis anticoagulation. CHADS2 Vasc was 5. Cardiology will gladly see him in follow-up but the patient states he does not need a screen printing machine operator helper and will just see Dr. Bernard. Will give him the phone number to contact cardiology if he needs a in the future. (3) Bradycardia: Code(s): R00.1 - Bradycardia, unspecified Status: Chronic Assessment and Plan: Patient was found to be bradycardic with a heart rate in the 30s and 40s at times. Patient is on atenolol at home. Discontinued AV Bianca blocking agent. The patient's heart rate improved after stopping atenolol. No indication for pacemaker at this time. Cardiology states the patient has Sick Sinus Syndrome but is otherwise asymptomatic. Can follow-up with screen printing machine operator helper outpatient for further evaluation. (4) Congestive heart failure: Qualifiers: Heart failure chronicity: acute on chronic Heart failure type: diastolic Qualified Code(s): I50.33 - Acute on chronic diastolic (congestive) heart failure
--- NOTE | 2019-11-06 12:30 | PM.PNNEP ---
Progress Note: A&P Assessment and Plan (1) Chronic kidney disease, stage 3: Code(s): N18.3 - Chronic kidney disease, stage 3 (moderate) Status: Chronic Assessment and Plan: Bernabe has chronic kidney disease. His creatinine has been in the high 1s since mid 2019. Urinalysis is bland And urine electrolytes are non pre renal. Most likely this is related to his diabetes and hypertension. He has multiple labs pending. He can follow up in my office if he wishes he can follow-up with Dr. taylor who can send him I way if he feels it is needed. The patient says he has transportation issues so may not be able to come in. (2) Hyponatremia: Code(s): E87.1 - Hypo-osmolality and hyponatremia Status: Acute Assessment and Plan: Sodium level is slightly low. Are non pre renal. Await immunofixation. Cortisol and TSH are normal (3) Hyperkalemia: Code(s): E87.5 - Hyperkalemia Status: Acute Assessment and Plan: His potassium is better this time. Tests still pending. No sign of obstruction. Brain CT is unremarkable. Chest x-ray is unremarkable. No history of cancer. He is on sertraline as RAMAN Cabrales points out. If the sodium is stable then he can stay on the sertraline since it is only mildly low. (4) Hypertension: Qualifiers: Hypertension type: essential hypertension Qualified Code(s): I10 - Essential (primary) hypertension Code(s): I10 - Essential (primary) hypertension Status: Chronic Assessment and Plan: His blood pressure is doing very well right now. (5) Diabetes: Code(s): E11.9 - Type 2 diabetes mellitus without complications Status: Chronic Assessment and Plan: He is on Accu-Cheks and sliding-scale insulin (6) Anemia: Code(s): D64.9 - Anemia, unspecified Status: Chronic Assessment and Plan: His hemoglobin is 9.7. Iron level is low. B12 and folate are okay. On iron supplements orally. (7) Bradycardia: Code(s): R00.1 - Bradycardia, unspecified Status: Chronic Assessment and Plan: Cardiology is being saw the patient. (8) Congestive heart failure: Qualifiers: Heart failure chronicity: acute on chronic Heart failure type: diastolic Qualified Code(s): I50.33 - Acute on chronic diastolic (congestive) heart failure Code(s): I50.9 - Heart failure, unspecified Status: Chronic Assessment and Plan: Cardiology saw the patient. Subjective Date/time seen: 11/06/19 12:30 Interval history: Cristi is feeling better today. He is eager for discharge. Sitting up in a chair. Stepson in the room Review of Systems Cardiovascular: Cardiovascular: Reports no additional cardiovascular complaints Respiratory: Respiratory: Reports no additional respiratory complaints Gastrointestinal: Gastrointestinal: Reports no additional gastrointestinal complaints Genitourinary: Genitourinary: Reports no additional male genitourinary complaints Exam Narrative: Exam Narrative: WDWN in NAD skin no rash head ncat lungs clear bilaterally cor reg no rub or gallop abd BS+ nontender and soft ext no edema. Objective Data Vital Signs Vital Signs: Vital Signs - 24 hr 11/05/19 12:53 11/05/19 13:50 11/05/19 13:52 Temperature Pulse Rate Respiratory Rate Blood Pressure Pulse Oximetry 97 94 94 11/05/19 16:00 11/05/19 20:00 11/05/19 22:00 Temperature 36.6 C 36.1 C L Pulse Rate 56 L 65 83 Respiratory Rate 16 16 Blood Pressure 125/60 124/50 L Pulse Oximetry 99 94 11/06/19 00:00 11/06/19 04:00 11/06/19 05:58 Temperature 36.1 C L 36.1 C L Pulse Rate 80 65 79 Respiratory Rate 20 20 Blood Pressure 130/59 L 140/56 L Pulse Oximetry 91 98 11/06/19 08:00 11/06/19 10:00 11/06/19 12:00 Temperature 36.2 C L Pulse Rate 79 79 85 Respiratory Rate 20 18 Blood Pressure 102/50 L Pulse Oximetry 98 96
--- NOTE | 2019-11-06 16:09 | PM.IMPN ---
Progress Note: A&P Assessment and Plan (1) Shortness of breath: Code(s): R06.02 - Shortness of breath Status: Acute Assessment and Plan: Patient presented to the emergency room for shortness of breath. The patient is a new onset atrial flutter and his D-dimer was elevated at 0.86. Venous Dopplers was negative for DVT. V/Q scan could not be completed because he cannot lay down flat for the test. The patient has been getting IV Lasix for acute CHF exacerbation. Yesterday the patient's nurse told me that she was able to wean him down to room air at rest but last night his oxygen went down while he was sleeping and they placed him back on 2 L via nasal cannula. Patient is resting comfortably in room air at this time with oxygen saturation 96%. He denies any shortness of breath at this time. He does report slight dyspnea on exertion with getting into the chair but states this is his baseline. Patient was thus be discharged back to his living facility, but the nurse who would be taking care of him will not accept him in transfer because they were told he was going to get a COVID-19 test. This was a misunderstanding because we initially thought he needed a COVID-19 test prior to being accepted to the facility but then we found out that he does not need it and can go. The patient is not having any symptoms of COVID-19 at this time and he does not need testing. The patient is ready for discharge back to his living facility but they will not accept him at this time and will need to stay overnight due to this issue. Ultimately, we still cannot rule out underlying PE on the patient since VQ could not be completed. Venous dopplers were negative for DVT. Echocardiogram showed moderately dilated RV and RA (unsure if this is new or chronic since LV and LA are also enlarged), normal pulmonary arterial pressure, no pulmonary HTN, No visualized clot seen. The patients Well's Score is a 3 which is Moderate Risk for PE. I find in the patients history that he had a GI Bleed from Gastric Ulcers 2013 and needed to be on PPI. I have talked with [facility] about the patient and informed her of his risk of PE. We tried to get an ABG on the patient but he refused after having 4 sticks and it all being unsuccessful. I talked with my attending provider, Dr. Chino, about the patient's case and since he is resting comfortably on room air at this time it would be beneficial discontinue his Eliquis 2.5 mg twice a day and not to treat for a pulmonary embolism at this time. Patient understands and agrees the plan all questions answered. (2) New onset atrial flutter: Code(s): I48.92 - Unspecified atrial flutter Status: Acute Assessment and Plan: Patient EKG shows atrial flutter with a bradycardic heart rate. Patient has no history of atrial flutter in our computer system. Patient denies any history of atrial flutter in the past and he is not on any anticoagulation. Patient had 2 EKGs in ER showing atrial flutter with a bradycardic heart rate. Telemetry shows NSR with HR 83 bpm and intermittent atrial flutter without any tachycardia episodes. Cardiology recommends to stop AV bianca blocking agents. No plans for cardioversion. Started the patient on Eliquis anticoagulation. CHADS2 Vasc was 5. Cardiology will gladly see him in follow-up but the patient states he does not need a academic intern and will just see Dr. Bernard. Will give him the phone number to contact cardiology if he needs a in the future. (3) Bradycardia: Code(s): R00.1 - Bradycardia, unspecified Status: Chronic Assessment and Plan: Patient was found to be bradycardic with a heart rate in the 30s and 40s at times. Patient is on atenolol at home. Discontinued AV Bianca blocking agent. The patient's heart rate improved after stopping atenolol. No indication for pacemak
[2019-11-06] MEDS: GABAPENTIN 300 MG CAPSULE PO (20:12)
[2019-11-06] MEDS: rOPINIRole HCL 1 MG TABLET PO (20:13)
[2019-11-07] VITALS (7 sets, daily range): BP systolic 133–148; BP diastolic 63–78; PULSE 58–83; RESP 16–20; TEMP 36.1–36.3; O2SAT 98–100
[2019-11-07] MEDS: LORATADINE 10 MG TABLET PO (08:35)
[2019-11-07] MEDS: polyethylene glycoL 3350 17 GM POWD.PACK PO (08:35)
[2019-11-07] MEDS: SERTRALINE HCL 50 MG TABLET PO (08:36)
[2019-11-07] MEDS: APIXABAN 2.5 MG TABLET PO (08:36)
[2019-11-07] MEDS: FERROUS SULFATE 324 MG TABLET PO (08:36)
[2019-11-07] MEDS: FUROSEMIDE 40 MG TABLET PO (08:36)
[2019-11-07] MEDS: PANTOPRAZOLE 40 MG TABLET PO (08:36)
[2019-11-07] MEDS: ATORVASTATIN 20 MG TABLET PO (08:36)
[2019-11-07] MEDS: SACCHAROMYCES BOULARDII 250 MG CAPSULE PO (08:36)
[2019-11-07] MEDS: FINASTERIDE 5 MG TABLET PO (08:36)
[2019-11-07] MEDS: DOCUSATE SODIUM 100 MG CAPSULE PO (08:36)
[2019-11-07] MEDS: DOXYCYCLINE HYCLATE 100 MG TABLET PO (08:36)
[2019-11-07] MEDS: CLOPIDOGREL BISULFATE 75 MG TABLET PO (08:36)
[2019-11-07] MEDS: LORazepam 0.5 MG TABLET PO ×2 (08:36→12:49)
--- NOTE | 2019-11-07 09:36 | PM.PNNEP ---
Progress Note: A&P Assessment and Plan (1) Chronic kidney disease, stage 3: Code(s): N18.3 - Chronic kidney disease, stage 3 (moderate) Status: Chronic Assessment and Plan: Bernabe has chronic kidney disease. His creatinine has been in the high 1s since mid 2019. Urinalysis is bland And urine electrolytes are non pre renal. c3,c4 okay. serology and immunofix are pending. Most likely this is related to his diabetes and hypertension. He has multiple labs pending. He can follow up in my office if he wishes or he can follow-up with Dr. Mendoza who can send him I way if he feels it is needed. The patient says he has transportation issues so may not be able to come in. (2) Hyponatremia: Code(s): E87.1 - Hypo-osmolality and hyponatremia Status: Acute Assessment and Plan: Sodium level is slightly low. Are non pre renal. Await immunofixation. Cortisol and TSH are normal on sertralein (3) Hyperkalemia: Code(s): E87.5 - Hyperkalemia Status: Acute Assessment and Plan: His potassium is normal No sign of obstruction. Brain CT is unremarkable. Chest x-ray is unremarkable. No history of cancer. renin/shima okay. cortisol okay (4) Hypertension: Qualifiers: Hypertension type: essential hypertension Qualified Code(s): I10 - Essential (primary) hypertension Code(s): I10 - Essential (primary) hypertension Status: Chronic Assessment and Plan: His blood pressure is u pa a bit. he is off amlodipine as this makes him swell. will add lisinopril due to ckd and htn (5) Diabetes: Code(s): E11.9 - Type 2 diabetes mellitus without complications Status: Chronic Assessment and Plan: He is on Accu-Cheks and sliding-scale insulin (6) Anemia: Code(s): D64.9 - Anemia, unspecified Status: Chronic Assessment and Plan: His hemoglobin is 9.7. Iron level is low. B12 and folate are okay. On iron supplements orally. (7) Bradycardia: Code(s): R00.1 - Bradycardia, unspecified Status: Chronic Assessment and Plan: Cardiology is being saw the patient. (8) Congestive heart failure: Qualifiers: Heart failure chronicity: acute on chronic Heart failure type: diastolic Qualified Code(s): I50.33 - Acute on chronic diastolic (congestive) heart failure Code(s): I50.9 - Heart failure, unspecified Status: Chronic Assessment and Plan: Cardiology saw the patient. Subjective Date/time seen: 11/07/19 09:36 Interval history: Cristi is feeling better today. He is eager for discharge. waiting for placement. Review of Systems Cardiovascular: Cardiovascular: Reports no additional cardiovascular complaints Respiratory: Respiratory: Reports no additional respiratory complaints Gastrointestinal: Gastrointestinal: Reports no additional gastrointestinal complaints Genitourinary: Genitourinary: Reports no additional male genitourinary complaints Exam Narrative: Exam Narrative: WDWN in NAD skin no rash or sq nodules head ncat lungs clear bilaterally cor reg no rub or gallop abd BS+ nontender and soft ext no edema or cyanosis Objective Data Vital Signs Vital Signs: Vital Signs - 24 hr 11/06/19 10:00 11/06/19 12:00 11/06/19 12:28 Temperature 36.2 C L Pulse Rate 79 85 85 Respiratory Rate 18 Blood Pressure 102/50 L Pulse Oximetry 96 11/06/19 13:50 11/06/19 16:00 11/06/19 17:45 Temperature 36.4 C 36.4 C L Pulse Rate 84 84 73 Respiratory Rate 20 18 Blood Pressure 152/67 H 122/59 L Pulse Oximetry 98 98 11/06/19 20:00 11/06/19 21:44 11/07/19 00:00 Temperature 36.2 C L Pulse Rate 68 85 71 Respiratory Rate 18 Blood Pressure 133/73 Pulse Oximetry 100 11/07/19 01:49 11/07/19 04:00 11/07/19 05:34 Temperature 36.1 C L 36.2 C L Pulse Rate 76 58 L 81 Respiratory Rate 16 18 Blood Pressure 138/71 143/7
[2019-11-07] MEDS: lisinopriL 10 MG TABLET PO (12:49)
[2019-11-09 21:22] LABS: Kappa\\Lambda Light Chains 2.84 (0.26-1.65)
[2019-11-10 05:04] LABS: Osmolality, Urine 370 mOsm/kg (50-1200)
[2019-11-10 12:24] LABS: Complement Total CH50 >60 U/mL (31-60)
[2019-11-11 06:00] LABS: Osmolality, Urine 571 mOsm/kg (50-1200)
[2019-11-13 15:31] LABS: PRA 1.12 ng/mL/h (0.25-5.82)
== END 2019-11-07 16:07 | disposition home or self-care (01) | DRG 291 ==
LOC: ANHED 14:22 → ANH2MED 11-04 07:00
PROVIDERS: Internal Medicine Cardiovascular Disease; Internal Medicine Nephrology; Nurse Practitioner; Admitting Provider Family Medicine; Emergency Provider Family Medicine; Visit Provider Physician Assistant
DX: I13.0 Hypertensive heart and chronic kidney disease with heart failure and stage 1 through stage 4 chronic kidney disease, or unspecified chronic kidney disease (principal); I50.33 Acute on chronic diastolic (congestive) heart failure; I48.92 Unspecified atrial flutter; E87.1 Hypo-osmolality and hyponatremia; L03.115 Cellulitis of right lower limb; N18.3 Chronic kidney disease, stage 3 (moderate); R00.1 Bradycardia, unspecified; E11.22 Type 2 diabetes mellitus with diabetic chronic kidney disease; E87.5 Hyperkalemia; D63.1 Anemia in chronic kidney disease; F41.9 Anxiety disorder, unspecified; F32.9 Major depressive disorder, single episode, unspecified; M19.042 Primary osteoarthritis, left hand; M19.041 Primary osteoarthritis, right hand; N40.0 Benign prostatic hyperplasia without lower urinary tract symptoms; K21.9 Gastro-esophageal reflux disease without esophagitis; E78.5 Hyperlipidemia, unspecified; M50.33 Other cervical disc degeneration, cervicothoracic region; Z85.51 Personal history of malignant neoplasm of bladder; Z98.42 Cataract extraction status, left eye; Z98.41 Cataract extraction status, right eye; Z87.891 Personal history of nicotine dependence
CPT/HCPCS: 36415; 71045; 76775; 80048; 80053; 80069; 81003; 82088; 82533; 82550; 82570; 82607; 82746; 83540; 83550; 83690; 83735; 83880; 83883; 83935; 84132; 84244; 84300; 84443; 84484; 85025; 85055; 85380; 85610; 85652; 86140; 86160; 86162; 86334; 93005; 93306; 93970; 96374; 99285; A9270; C8929; J1650; J1756; J1940; Q9957

== ENCOUNTER 2020-04-15 23:13 | Inpatient (IN) | payer MEDICARE, OTHER, MEDICAID, SELFPAY ==
--- NOTE | ~2020-04-15 | XR_ITS ---
EXAMINATION: XR chest 1V portable DATE: 04/16/2020 00:12 INDICATION: Weakness. TECHNIQUE: A single frontal view of the chest was obtained. COMPARISON: Chest single view 11/03/2019, CT abdomen and pelvis 02/07/2016 FINDINGS: Sensitivity is decreased by obesity. There is mild atelectasis in left lower lung zone. No pleural effusion or pneumothorax. Cardiomegaly is noted. IMPRESSION: 1. Mild atelectasis in left lower lung zone. 2. Cardiomegaly. Reviewed, dictated and finalized at location A. HAND CRAB BOAT
--- NOTE | ~2020-04-15 | XR_ITS ---
EXAMINATION: XR chest 2V DATE: 04/17/2020 09:24 INDICATION: Shortness of breath, volume overload TECHNIQUE: AP and lateral views of the chest are obtained. COMPARISON: 04/15/2020 FINDINGS: Cardiomegaly is noted. There is a diffuse interstitial pattern. Small bilateral pleural eff usions are present. There is no pneumothorax. There is moderate thoracic spondylosis. Atelectasis is noted in the left lower lung zone. IMPRESSION: 1. Cardiomegaly with mild pulmonary edema. Reviewed, dictated and finalized at location A. OR LINUX ENGINEER
[2020-04-15 23:04] VITALS: BP 148/72; PULSE 42; RESP 20; TEMP 36.1; O2SAT 100
--- NOTE | 2020-04-15 23:07 | ECG_ITS ---
Measurements Intervals [place] Rate: 40 P: GA: 0 QRS: -46 QRSD: 127 T: -43 QT: 537 QTc: 439 Interpretive Statements ATRIAL FLUTTER WITH SLOW VENTRICULAR RESPONSE RIGHT BUNDLE BRANCH BLOCK LEFT ANTERIOR FASCICULAR BLOCK BASELINE WANDER- V3-V6 ABNORMAL ECG Electronically Signed On 04-16-2020 7:44:47 CENSUS ENUMERATOR by Alvaro Kim D.O.
[2020-04-15 23:51] LABS: Basophils Percent Auto 0.2 % (0.2-1.2); Eosinophils Percent Auto 0.2 % (0-4.4); Hematocrit 24.8 % (42.0-52.0); Immature Granulocyte Absolute 0.06 K/mm3 (0.00-0.031); Immature Granulocyte Percent A 0.6 % (0-0.5); Lymphocytes Absolute Auto 0.95 K/mm3 (0.9-3.2); Lymphocytes Percent Auto 9.9 % (18.3-44.2); Mean Corpuscular HGB Conc 28.2 g/dl (32-36); Mean Corpuscular Hemoglobin 22.2 pg (26-34); Mean Corpuscular Volume 78.5 fl (80-100); Mean Platelet Volume 9.8 fl (7.4-10.4); Monocytes Absolute Auto 0.5 K/mm3 (0.1-0.6); Monocytes Percent Auto 5.4 % (2.6-8.5); Neutrophils Percent Auto 83.7 % (45.5-73.1); Nucleated Red Blood Cells Perc 0.2 % (0.0-0.2); Platelet Count Result 241 k/mm3 (150-375); Red Blood Count 3.16 M/mm3 (4.6-6.20); Red Cell Distribution Width 19.1 % (11.5-14.5); White Blood Count 9.6 K/mm3 (4.5-10.0)
--- NOTE | 2020-04-15 23:52 | PC.NURSE ---
Business Office Technician asked MD if he wanted fluids to go in at a rate and MD instructed sign writer hand to give fluids as a bolus
[2020-04-15] MEDS: SODIUM CHLORIDE 0.9% IV 1,000 ML 125 ML IV CONT (23:53)
[2020-04-16] VITALS (20 sets, daily range): BP systolic 107–140; BP diastolic 50–70; PULSE 42–98; RESP 16–20; TEMP 34.8–36.4; O2SAT 87–100; BMI 33.7
[2020-04-16 00:03] LABS: INR 1.3; Prothrombin Time 17.2 Seconds (11.1-14.7)
[2020-04-16 00:04] LABS: Partial Thromboplastin Time 47.6 SECONDS (22.3-36.8)
[2020-04-16 00:06] LABS: Hypochromasia 1+ (NORMAL); Platelet Estimate Adequate (Adequate)
[2020-04-16 00:07] LABS: Anisocytosis 1+ (NORMAL)
[2020-04-16 00:20] LABS: Alanine Aminotransferase 37 U/L (4-50); Albumin Level 3.9 g/dL (3.5-5.1); Alkaline Phosphatase 112 U/L (38-126); Anion Gap 7 mmol/L (8-16); Aspartate Amino Transferase 49 U/L (17-59); Bilirubin,Total 0.4 mg/dL (0.2-1.3); Blood Urea Nitrogen 30 mg/dL (9-20); Calcium 7.9 mg/dL (8.4-10.2); Carbon Dioxide 26 mmol/L (22-30); Chloride 93 mmol/L (98-107); Estimated CRCL calculation 29 ml/min; Estimated Glomerular Filt Rate 30; Glucose 152 mg/dL (75-110); Potassium 5.7 mmol/L (3.4-5.0); Sodium 126 mmol/L (137-145)
[2020-04-16 00:28] LABS: Add Urine Microscopic? NO; Appearance Urine Clear (Clear); Bilirubin Urine Negative (Negative); Blood Urine Negative (Negative); Color Urine Yellow (Yellow); Glucose Urine UA Negative (Negative); Ketones Urine Negative (Negative); Leukocyte Esterase Ur Negative LEU/UL (Negative); Nitrate Urine Negative (Negative); Protein Urine Negative (Negative); Specific Grav Ur 1.012 (1.001-1.035); Urobilinogen Urine Negative mg/dL (<2.0)
--- NOTE | 2020-04-16 00:31 | ED.WEAKNESS ---
HPI - Weakness General Chief complaint: Weakness Stated complaint: weakness History of Present Illness HPI Narrative: Patient is a 84-year-old gentleman who presents the emergency department with chief complaint of generalized weakness. The patient reports today he has been not feeling well and has felt much weaker than normal. Patient has history of atrial fibrillation and is on Eliquis patient states that he has felt a little short of breath with this as well patient denies chest pain denies bloody bowel movements or hematuria. Patient denies abdominal pain reports he had some mild shortness of breath with exertion earlier. Related Data Home Medications Medication Instructions Recorded Confirmed aspirin 81 mg PO DAILY 11/03/19 11/03/19 atorvastatin 20 mg PO DAILY 11/03/19 11/03/19 cetirizine 10 mg PO DAILY 11/03/19 11/03/19 clopidogrel 75 mg PO DAILY 11/03/19 11/03/19 docusate sodium 100 mg PO DAILY 11/03/19 11/03/19 finasteride 5 mg PO DAILY 11/03/19 11/03/19 gabapentin 300 mg PO HS 11/03/19 11/03/19 melatonin 5 mg PO HS PRN 11/03/19 11/03/19 omeprazole 40 mg PO DAILY 11/03/19 11/03/19 polyethylene glycol 3350 17 g PO DAILY PRN 11/03/19 11/03/19 ropinirole 1 mg PO HS 11/03/19 11/03/19 sertraline 50 mg PO DAILY 11/03/19 11/03/19 tramadol 50 mg PO TID PRN 11/03/19 11/03/19 Allergies Allergy/AdvReac Type Severity Reaction Status Date / Time codeine Allergy Unknown Unknown Verified 04/01/19 15:59 hydrocodone Allergy Unknown Unknown Verified 04/01/19 15:59 Sulfa (Sulfonamide Allergy Unknown Unknown Verified 04/01/19 15:59 Antibiotics) Review of Systems Review of Systems: Narrative: A 10 system review of systems was completed on the patient and is negative except for what is stated in the HPI. Nursing and ancillary documentation was reviewed. 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 He lives with his and that is his durable power deputy attorney general for healthcare. The patient is modified code. He said he does not want to be intubated. He does not want any life support. He worked for the [email or web address] for 37 years and is retired. He quit smoking in 1978 and quit drinking in the 80s. No marijuana or illicit drugs. Smoking packs per day: 2 Smoking cigarettes per day: 40.0 Smoking status: Former smoker Tobacco type: cigarettes Smoking end date: 04/28/78 Alcohol intake: former Substance use: never Gender identity (if verbalized by the patient): Male Spiritual care concerns: No Exam Narrative: Exam Narrative: GENERAL: Well-appearing, well-nourished, and in
[2020-04-16 00:32] LABS: NT Pro B Type Natriuretic Pept 6790 PG/ML (5-100); Troponin I < 0.012 ng/mL (0.000-0.034)
[2020-04-16 02:41] LABS: Hematocrit 23.1 % (42.0-52.0)
--- NOTE | 2020-04-16 02:50 | ADMGEN ---
This patient, Cristi Shelton, was admitted to Medical Room 348-. Patient/family oriented to hospital policies and general routines including ID bracelet, bed and alarms, visiting hours, pain management, procedures, bathroom and other care routines, personal items, smoking policy, room service/diet, and visiting hours. Information on how to activate the Rapid Response Team has been discussed. Patient/Family are encouraged to report perceived risks to care and to ask questions if they do not understand what they are told or what they should do.
[2020-04-16 03:06] LABS: Troponin I < 0.012 ng/mL (0.000-0.034)
[2020-04-16 03:09] LABS: Hemoglobin 6.5 g/dL (14.0-18.0)
--- NOTE | 2020-04-16 03:47 | PM.IMHP ---
H&P: HPI History of Present Illness Date/Time: 04/16/20 03:47 Chief Complaint: Generalized weakness+ Narrative: This is an 84 year old male with known history of HTN, hyperlipidemia, and atrial flutter on Eliquis who presented to the hospital [facility] with a complaint of feeling very tired and weak since yesterday morning. He has been feeling lightheaded and also complained of mild shortness of breath. He denied any chest pain, cough, fevers, chills, abdominal pain, dysuria, hematuria, diarrhea or rectal bleeding. The patient was found to be hypothermic in the ER tonight and routine labs demonstrated an initial hgb of 7.0. Bedside rectal exam performed by the ER provider was guaiac positive. The patient has also been bradycardic on the monitor. ER provider has consulted Gastroenterology. 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 He lives with his and that is his durable power dairy bacteriologist for healthcare. The patient is modified code. He said he does not want to be intubated. He does not want any life support. He worked for the [employer] for 37 years and is retired. He quit smoking in 1978 and quit drinking in the s. No marijuana or illicit drugs. Smoking packs per day: 2.5 Smoking cigarettes per day: 50.0 Smoking status: Former smoker Tobacco type: cigarettes Smoking end date: 04/28/78 Alcohol intake: former Substance use: never Substance use type: does not use Gender identity (if verbalized by the patient): Male Sexual Orientation (if Verbalized by the Patient): Straight or Heterosexual Spiritual care concerns: No Meds Home Medications and Allergies Home Medications Medication Instructions Recorded Confirmed Type lorazepam 0.5 mg tablet 0.5 mg PO TID #90 tablet 10/18/19 04/16/20 Rx aspirin 81 mg PO DAILY 11/03/19 04/16/20 History atorvastatin 20 mg PO HS 11/03/19 04/16/20 History cetirizine 10 mg PO DAILY 11/03/19 04/16/20 History clopidogrel 75 mg PO DAILY 11/03/19 04/16/20 History finasteride 5 mg PO DAILY 11/03/19 04/16/20 History gabapentin 300 mg PO TID 11/03/19 04/16/20 History melatonin 5 mg PO HS PRN 11/03/19 04/16/20 History omeprazole 40 mg PO DAILY 11/03/19 04/16/20 History polyethylene glycol 3350 17 g PO DAILY PRN 11/03/19 04/16/20 History ropinirole 2 mg PO BID 11/03/19 04/16/20 History sertraline 50 mg PO DAILY 11/03/19 04/16/20 History tramadol 50 mg PO TID PRN 11/03/19 04/16/20 History apixaban [Eliquis] 2.5 mg PO Q12HR 30 Days #60 tablet 11/06/19
--- NOTE | 2020-04-16 03:49 | ECG_ITS ---
Measurements Intervals [place] Rate: 43 P: FL: 0 QRS: -50 QRSD: 130 T: -9 QT: 523 QTc: 446 Interpretive Statements ATRIAL FLUTTER WITH SLOW VENTRICULAR RESPONSE LEFT AXIS DEVIATION RIGHT BUNDLE BRANCH BLOCK INFERIOR INFARCT, AGE INDETERMINATE ABNORMAL ECG Electronically Signed On 04-16-2020 15:27:33 DEPOSITION REPORTER by Alvaro Kim D.O.
[2020-04-16] MEDS: SODIUM CHLORIDE 0.9% IV 1,000 ML 100 ML IV CONT (04:35)
[2020-04-16] MEDS: SODIUM CHLORIDE 0.9% IV 250 ML 30 ML IV CONT (04:40)
[2020-04-16 04:48] LABS: Anion Gap 7 mmol/L (8-16); Blood Urea Nitrogen 31 mg/dL (9-20); Calcium 7.6 mg/dL (8.4-10.2); Carbon Dioxide 24 mmol/L (22-30); Chloride 94 mmol/L (98-107); Estimated CRCL calculation 33 ml/min; Estimated Glomerular Filt Rate 34; Glucose 110 mg/dL (75-110); Potassium 5.8 mmol/L (3.4-5.0); Sodium 125 mmol/L (137-145)
[2020-04-16 05:21] LABS: Glucose Point of Care 110 (65-105)
[2020-04-16 06:56] LABS: Glucose Point of Care 121 (65-105)
--- NOTE | 2020-04-16 08:50 | PM.CNCAR ---
History of Present Illness History of Present Illness Consult date/time: 04/16/20 08:50 Reason For Visit: bradycardia, anemia, generalized weakness, [facility] Past Medical History Medical History (Updated 04/16/20 @ 05:13 by Darius Brandt MD) Anemia Anxiety Arthritis bilateral hands Back pain Bladder cancer BPH (benign prostatic hyperplasia) Cataracts, bilateral Chronic kidney disease, stage 3 DDD (degenerative disc disease) C7 Depression Diabetes DJD of shoulder Fractures lt fibula GERD (gastroesophageal reflux disease) GI bleed History of left common carotid artery stent placement Hyperlipidemia Hypertension Somatic dysfunction of left upper extremity 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 He lives with his and that is his durable power insurance attorney for healthcare. The patient is modified code. He said he does not want to be intubated. He does not want any life support. He worked for the [employer] for 37 years and is retired. He quit smoking in 1978 and quit drinking in the s. No marijuana or illicit drugs. Smoking packs per day: 2.5 Smoking cigarettes per day: 50.0 Smoking status: Former smoker Tobacco type: cigarettes Smoking end date: 04/28/78 Alcohol intake: former Substance use: never Substance use type: does not use Gender identity (if verbalized by the patient): Male Sexual Orientation (if Verbalized by the Patient): Straight or Heterosexual Spiritual care concerns: No Meds Home Medications and Allergies Home Medications Medication Instructions Recorded Confirmed Type lorazepam 0.5 mg tablet 0.5 mg PO TID #90 tablet 10/18/19 04/16/20 Rx aspirin 81 mg PO DAILY 11/03/19 04/16/20 History atorvastatin 20 mg PO HS 11/03/19 04/16/20 History cetirizine 10 mg PO DAILY 11/03/19 04/16/20 History clopidogrel 75 mg PO DAILY 11/03/19 04/16/20 History finasteride 5 mg PO DAILY 11/03/19 04/16/20 History gabapentin 300 mg PO TID 11/03/19 04/16/20 History melatonin 5 mg PO HS PRN 11/03/19 04/16/20 History omeprazole 40 mg PO DAILY 11/03/19 04/16/20 History polyethylene glycol 3350 17 g PO DAILY PRN 11/03/19 04/16/20 History ropinirole 2 mg PO BID 11/03/19 04/16/20 History sertraline 50 mg PO DAILY 11/03/19 04/16/20 History tramadol 50 mg PO TID PRN 11/03/19 04/16/20 History apixaban [Eliquis] 2.5 mg PO Q12HR 30 Days #60 tablet 11/06/19 04/16/20 Rx acetaminophen 1,000 mg PO HS 04/16/20 04/16/20 History diphenhydramine HCl [Allergy 25 mg PO QID PRN 04/16/20 04/16/20 History (diphenhydramine)] Allergies Allergy/AdvReac Type Severity Reaction Status Date / Time codeine Allergy Unknown Unknown Verified 04/16/20 03:26 hydrocodone Allergy Unknown Unknown Verified 04/16/20 03:26 Sulfa (Sulfonamide Allergy Unknown Unknown Verified 04/16/20 03:26 Antibiotics) Vital Signs Vital Signs - 24 hr 04/15/20 23:04 04/16/20 00:31 04/16/20 00:34 Temperature 36.1 C L Pulse Rate 42 L 61 Respiratory Rate 20 17 Blood Pressure 148/72 H 118/58 L Pulse Oximetry 100 96 94 04/16/20 02:56 04/16/20 03:05 04/16/20 03:14 Temperature Pulse Rate 48 L 48 L 48 L Respiratory Rate 19 19 Bloo
[2020-04-16 09:16] LABS: Hematocrit 24.5 % (42.0-52.0); Hemoglobin 7.2 g/dL (14.0-18.0)
[2020-04-16 09:29] LABS: Anion Gap 6 mmol/L (8-16); Blood Urea Nitrogen 32 mg/dL (9-20); Calcium 7.4 mg/dL (8.4-10.2); Carbon Dioxide 24 mmol/L (22-30); Chloride 95 mmol/L (98-107); Estimated CRCL calculation 31 ml/min; Estimated Glomerular Filt Rate 32; Glucose 108 mg/dL (75-110); Potassium 5.9 mmol/L (3.4-5.0); Sodium 125 mmol/L (137-145)
--- NOTE | 2020-04-16 10:09 | WPDGICN ---
Assessment and Plan Assessment and plan (1) Acute GI bleeding: Code(s): K92.2 - Gastrointestinal hemorrhage, unspecified Status: Acute Assessment and Plan: he has known history of AVM's and also using blood thinners continue with ppi, will proceed with egd and colonoscopy tomorrow (2) Symptomatic anemia: Code(s): D64.9 - Anemia, unspecified Status: Acute Assessment and Plan: keep hb above 7 and continue to monitor ppi for now and agree with holding blood thinners (3) Atrial fibrillation with slow ventricular response: Code(s): I48.91 - Unspecified atrial fibrillation Status: Acute Assessment and Plan: by primary team (4) Acute on chronic renal failure: Code(s): N17.9 - Acute kidney failure, unspecified; N18.9 - Chronic kidney disease, unspecified Status: Acute GI Consult Note Consult date/time: 04/16/20 10:09 Reason for consult: gib HPI: Cristi Shelton is a 84 year old male with history of HTN, atrial flutter on Eliquis and previous history of GIB (records reviewed as he is not best historian). 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 He came to ED with progressive weakness, feeling lightheaded and also complained of mild shortness of breath. He says that noted some bleeding from excoriation in perianal area but denies definitive melena. His hb was 7.0. Bedside rectal exam performed by the ER provider was guaiac positive. He was started on ppi and admitted to hospital. Review of Systems Constitutional: Constitutional: Reports fatigue and Reports weakness Eyes: Eyes: Reports no additional eye complaints ENT: Reports Normal hearing present Cardiovascular: Cardiovascular: Reports lightheadedness Respiratory: Respiratory: Denies cough Gastrointestinal: Gastrointestinal: Denies abdominal pain Musculoskeletal: Musculoskeletal: Denies neck pain Integumentary/Breasts: Skin/Breast: Reports rash (perianal excoriation) Neurologic: Denies headache(s) Psychiatric: Psychiatric: Reports anxiety PMFSH Past Medical History Medical History (Updated 04/16/20 @ 05:13 by Darius Brandt MD) Anemia Anxiety Arthritis bilateral hands Back pain Bladder cancer BPH (benign prostatic hyperplasia) Cataracts, bilateral Chronic kidney disease, stage 3 DDD (degenerative disc disease) C7 Depression Diabetes DJD of shoulder Fractures lt fibula GERD (gastroesophageal reflux disease) GI bleed History of left common carotid artery stent placement Hyperlipidemia Hypertension Somatic dysfunction of left upper extremity 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 which used to be [place]. He lives with his and that is his durable power delivery driver for healthcare. The patient is modified code. He said he does not want to be intubated. He does not want any life support. He worked for the [employer] for 37 years and is retired. He quit smoking in 1978 and quit drinking in the 80s. No marijuana or illicit drugs. Smoking packs per day: 2.5 Smok
[2020-04-16 12:47] LABS: Glucose Point of Care 109 (65-105)
--- NOTE | 2020-04-16 13:07 | PM.CNCAR ---
Assessment and Plan Assessment and plan (1) Symptomatic anemia: Code(s): D64.9 - Anemia, unspecified Status: Acute Assessment and Plan: Status post transfusion. He was on triple therapy including aspirin, clopidogrel and Eliquis. I am uncertain as to the need for the antiplatelets. Will discontinue aspirin, clopidogrel and Eliquis for now. Eventually would recommend restarting low-dose Eliquis of 2.5 mg p.o. b.i.d. depending on what is found with his endoscopy. Would not resume anti-platelet therapy. Will repeat an EKG and PA lateral chest x-ray tomorrow (2) Bradycardia: Code(s): R00.1 - Bradycardia, unspecified Status: Chronic Assessment and Plan: Obviously has significant conduction system disease. It is questionable as to whether not he is symptomatic from the bradycardia however. Regardless I did talk to him about the possibility of pacemaker if needed and he states that he does not want one. (3) Hypertension associated with diabetes: Code(s): E11.59 - Type 2 diabetes mellitus with other circulatory complications; I10 - Essential (primary) hypertension Status: Acute Assessment and Plan: At goal (4) Acute on chronic renal failure: Code(s): N17.9 - Acute kidney failure, unspecified; N18.9 - Chronic kidney disease, unspecified Status: Acute Assessment and Plan: Will DC is IV fluids as I do not want to go iatrogenic volume overload. He is already showing some signs of edema and did receive blood already also. In fact I am going to give him a dose of IV furosemide 40 mg IV x1. (5) Hyperkalemia: Code(s): E87.5 - Hyperkalemia Status: Acute Assessment and Plan: 5.9 is his level. I am going to give him some Lasix. He is also getting prepped for colonoscopy. This will also likely help his hyperkalemia. Obviously could use Kayexalate if needed History of Present Illness History of Present Illness Consult date/time: 04/16/20 13:07 Requesting physician: Eron Chino MD Consult reason: Other (Bradycardia, atrial flutter) Reason For Visit: bradycardia, anemia, generalized weakness, CHF Narrative: Date of service 04/16/2020 Reason for consultation bradycardia and atrial flutter History: Patient is an 84-year-old male with history of atrial flutter. He was seen in October by Dr. redmond for atrial flutter and bradycardia. His atenolol was stopped at that time. It was not felt that he needed a pacemaker. He clearly has conduction system disease though given his slow ventricular response. He came to this hospital because of weakness and fatigue he and mild shortness of breath and feeling lightheaded. He was also hypothermic. He was guaiac positive and hemoglobin was 7. He received packed red blood cells is currently feeling better. On monitor it was noted that he was in atrial flutter with slow ventricular response. Heart rate will drop into the 30s at times but is otherwise hemodynamically stable. He denies any chest pain, syncope, presyncope, paroxysmal nocturnal dyspnea, orthopnea, edema or palpitations. Review of Systems Review of Systems: All systems reviewed & are unremarkable except as noted in HPI and below Constitutional: Constitutional: Reports fatigue and Reports weakness Eyes: Eyes: Denies blurry vision ENT: Reports Normal hearing present Cardiovascular: Cardiovascular: Denies chest pain Respiratory: Respiratory: Reports dyspnea Gastrointestinal: Gastrointestinal: Denies abdominal pain Genitourinary: Genitourinary: Denies dysuria Musculoskeletal: Musculoskeletal: Denies back pain and Denies neck pain Integumentary/Breasts: Skin/Breast: Denies dry skin Neurologic: Denies headache(s) and Denies numbness Psychiatric: Psychiatric: Denies anxiety and Denies confusion Endocrine: Endocrine: Reports fatigue Hematologic/Lymphatic: Hematologic/Lymphatic: Denies easy bleeding and Denies easy bruising All
[2020-04-16] MEDS: FUROSEMIDE INJ 40 MG/4 ML VIAL IV PUSH (13:26)
[2020-04-16 13:32] LABS: Hemoglobin 7.9 g/dL (14.0-18.0)
[2020-04-16 13:44] LABS: Anion Gap 8 mmol/L (8-16); Blood Urea Nitrogen 32 mg/dL (9-20); Calcium 7.7 mg/dL (8.4-10.2); Carbon Dioxide 22 mmol/L (22-30); Chloride 95 mmol/L (98-107); Estimated CRCL calculation 33 ml/min; Estimated Glomerular Filt Rate 34; Glucose 108 mg/dL (75-110); Potassium 5.6 mmol/L (3.4-5.0); Sodium 125 mmol/L (137-145)
[2020-04-16 14:22] LABS: Sodium Urine Random 20 meq/L
--- NOTE | 2020-04-16 16:14 | PM.IMPN ---
Progress Note: A&P Assessment and Plan (1) Acute GI bleeding: Code(s): K92.2 - Gastrointestinal hemorrhage, unspecified Status: Acute Assessment and Plan: r/o upper GI bleed. Telemetry, Strict Bedrest and NPO. pRBC transfusion now. Monitor H/H q 6 hrs. Acute GI bleeding is likely secondary to Eliquis, ASA and plavix use. We will hold anticoagulants and antiplatelet agents. The patient stated that he did have a history of previous GI bleeding. GI has been consulted by ER provider. Appreciate GI input. 04/16/20 16:14 patient 84-year-old male with history atrial fibrillation home aspirin, Plavix, and Eliquis, presented emergency department with a complaint being fatigued and tired upon arrival his hemoglobin was 7 and he was positive for stool Hemoccult in the ER, patient does have a history of bleeding AVMs, patient was given 1 unit of pack RBC he feels better, patient is seen by Cardiology as patient has a history atrial fibrillation flutter with bradycardia, due to bleeding patient is off anti-platelet and anticoagulation will be reassessed after EGD which is scheduled for tomorrow, patient is clinically stable at the presenttime and he is feeling much better compared to when he arrived, denies any any chest pain shortness of breath palpitation fever or chills. (2) Symptomatic anemia: Code(s): D64.9 - Anemia, unspecified Status: Acute Assessment and Plan: Strict bedrest. Continue pRBC transfusion. Monitor H/H, transfuse prn. (3) Atrial fibrillation with slow ventricular response: Code(s): I48.91 - Unspecified atrial fibrillation Status: Acute Assessment and Plan: The patient does not appear to be on any beta blockers of CCBs. I have checked his TSH which was normal. We will consult Cardiology to evaluate the patient. (4) Generalized weakness: Code(s): R53.1 - Weakness Status: Acute Assessment and Plan: Secondary to anemia and GI bleeding. Continue treatment for same. (5) Hypothermia: Code(s): T68.XXXA - Hypothermia, initial encounter Status: Acute Assessment and Plan: Anthony Milner. (6) Hyponatremia: Code(s): E87.1 - Hypo-osmolality and hyponatremia Status: Acute Assessment and Plan: Monitor serum sodium. Continue IV hydration. Check urine sodium and urine osm. (7) Hyperkalemia: Code(s): E87.5 - Hyperkalemia Status: Acute Assessment and Plan: Likely seconadry to worsening renal failure. Monitor serum potassium. We will consider insulin + dextrose and sodium bicarbonate if the patient's potassium >6.0 or if he develops EKG changes. (8) Acute on chronic renal failure: Code(s): N17.9 - Acute kidney failure, unspecified; N18.9 - Chronic kidney disease, unspecified Status: Acute Assessment and Plan: Continue IV fluid challenge. Monitor renal function and urine output. Avoid nephrotoxic agents, renally dose medications. (9) Diabetes: Code(s): E11.9 - Type 2 diabetes mellitus without complications Status: Chronic Assessment and Plan: Accuchecks, SSI Coverage, hypoglycemic protocol. (10) Hyperlipidemia: Code(s): E78.5 - Hyperlipidemia, unspecified Status: Chronic Assessment and Plan: Resume statin therapy when appropriate. (11) Hypertension: Qualifiers: Hypertension type: essential hypertension Qualified Code(s): I10 - Essential (primary) hypertension Code(s): I10 - Essential (primary) hypertension Status: Chronic Assessment and Plan: Stable. Monitor blood pressure. He does not appear to be on any home antihypertensive medications. (12) Depression: Code(s): F32.9 - Major depressive disorder, single episode, unspecified Status: Chronic Assessment and Plan: Resume sertraline when appropriate. (13) Congestive heart failure: Qualifiers: Heart failure chronicity: acute on
[2020-04-16 17:42] LABS: Anion Gap 6 mmol/L (8-16); Blood Urea Nitrogen 33 mg/dL (9-20); Calcium 7.6 mg/dL (8.4-10.2); Carbon Dioxide 25 mmol/L (22-30); Chloride 94 mmol/L (98-107); Estimated CRCL calculation 31 ml/min; Estimated Glomerular Filt Rate 32; Glucose 146 mg/dL (75-110); Sodium 125 mmol/L (137-145)
[2020-04-16 18:06] LABS: Glucose Point of Care 167 (65-105)
[2020-04-16] MEDS: PEG (High)/E-LYTE SOLN 4,000 ML BTL 4000 ML PO (18:56)
[2020-04-16] MEDS: BISACODYL 5 MG TABLET EC 20 MG PO (18:56)
[2020-04-16 20:36] LABS: Hematocrit 25.9 % (42.0-52.0)
[2020-04-16 20:49] LABS: Anion Gap 8 mmol/L (8-16); Blood Urea Nitrogen 32 mg/dL (9-20); Calcium 7.5 mg/dL (8.4-10.2); Carbon Dioxide 24 mmol/L (22-30); Chloride 93 mmol/L (98-107); Estimated CRCL calculation 31 ml/min; Estimated Glomerular Filt Rate 32; Glucose 108 mg/dL (75-110); Potassium 5.1 mmol/L (3.4-5.0); Sodium 125 mmol/L (137-145)
[2020-04-17] VITALS (19 sets, daily range): BP systolic 117–169; BP diastolic 45–90; PULSE 40–98; RESP 18–26; TEMP 35.7–36.6; O2SAT 93–100
[2020-04-17 00:14] LABS: Glucose Point of Care 96 (65-105)
[2020-04-17] MEDS: MAGNESIUM CITRATE 300 ML BTL 150 ML PO (04:39)
[2020-04-17 05:17] LABS: Glucose Point of Care 115 (65-105)
[2020-04-17 05:27] LABS: Basophils Percent Auto 0.2 % (0.2-1.2); Eosinophils Percent Auto 0.4 % (0-4.4); Hematocrit 25.3 % (42.0-52.0); Hemoglobin 7.5 g/dL (14.0-18.0); Immature Granulocyte Absolute 0.05 K/mm3 (0.00-0.031); Immature Granulocyte Percent A 0.6 % (0-0.5); Lymphocytes Percent Auto 14.7 % (18.3-44.2); Mean Corpuscular HGB Conc 29.6 g/dl (32-36); Mean Corpuscular Hemoglobin 23.6 pg (26-34); Mean Corpuscular Volume 79.6 fl (80-100); Mean Platelet Volume 9.5 fl (7.4-10.4); Monocytes Absolute Auto 0.7 K/mm3 (0.1-0.6); Monocytes Percent Auto 8.1 % (2.6-8.5); Neutrophils Absolute Auto 6.2 K/mm3 (1.3-6.7); Nucleated Red Blood Cells Perc 0.2 % (0.0-0.2); Platelet Count Result 182 k/mm3 (150-375); Red Blood Count 3.18 M/mm3 (4.6-6.20); Red Cell Distribution Width 18.7 % (11.5-14.5); White Blood Count 8.2 K/mm3 (4.5-10.0)
[2020-04-17 05:32] LABS: Anion Gap 8 mmol/L (8-16); Blood Urea Nitrogen 31 mg/dL (9-20); Calcium 7.5 mg/dL (8.4-10.2); Carbon Dioxide 25 mmol/L (22-30); Chloride 93 mmol/L (98-107); Estimated CRCL calculation 31 ml/min; Estimated Glomerular Filt Rate 32; Glucose 97 mg/dL (75-110); Magnesium 2.1 mg/dL (1.6-2.3); Potassium 4.4 mmol/L (3.4-5.0); Sodium 126 mmol/L (137-145)
[2020-04-17 06:51] LABS: Ovalocytes 2+ (NORMAL); Platelet Estimate Adequate (Adequate)
[2020-04-17] MEDS: ALPRAZolam (*CRX) 0.25 MG TABLET PO (09:01)
--- NOTE | 2020-04-17 11:30 | PM.PNCARD ---
Progress Note: A&P Assessment and Plan (1) Symptomatic anemia: Code(s): D64.9 - Anemia, unspecified Status: Acute Assessment and Plan: Status post transfusion. He was on triple therapy including aspirin, clopidogrel and Eliquis. Uncertain as to the need for the antiplatelets. Aspirin, clopidogrel and Eliquis discontinue for now. Eventually recommend restarting low-dose Eliquis of 2.5 mg p.o. b.i.d. depending on what is found with his endoscopy. Would not resume anti-platelet therapy. Awaiting EGD and colonoscopy. (2) Bradycardia: Code(s): R00.1 - Bradycardia, unspecified Status: Chronic Assessment and Plan: Obviously has conduction system disease. It is questionable as to whether not he is symptomatic from the bradycardia however. He denies lightheadedness or syncopal episodes. Pacemaker was discussed by Dr. Knapp. At first stated he did not want a pacemaker but now he is agreeable if he needs one. Episode of bradycardia with longest R to R was 2.75 seconds last evening at 17:28. No longer pauses noted on telemetry in the last 24 hours. Above discussed with Dr. Helms. Does not need a pacemaker at this time. Avoid any AV tracy blocking agents. (3) Hypertension associated with diabetes: Code(s): E11.59 - Type 2 diabetes mellitus with other circulatory complications; I10 - Essential (primary) hypertension Status: Acute Assessment and Plan: Blood pressure at goal. (4) Acute on chronic renal failure: Code(s): N17.9 - Acute kidney failure, unspecified; N18.9 - Chronic kidney disease, unspecified Status: Acute Assessment and Plan: IV fluids were discontinued however he is receiving pantoprazole IV which a continuous infusion at 50 cc an hour. Chest x-ray this morning reveals pulmonary edema. He is requiring 2 L of oxygen. Will give him another dose of IV furosemide today when he returns from endoscopy. (5) Hyperkalemia: Code(s): E87.5 - Hyperkalemia Status: Acute Assessment and Plan: Potassium 4.4 today. Continue to monitor. Additional Plan Plan discussed with Dr. Helms 1210 04/17/2020 Subjective Date/time seen: 04/17/20 11:30 Interval history: Follow-up for: Bradycardia, symptomatic anemia, hyperkalemia, acute on chronic kidney disease, diabetes Date of service: 04/17/2020 Subjective: Denied chest discomfort. Waiting for EGD and colonoscopy. Shortness of breath with exertional activities. Requiring 2 L of oxygen. No lightheadedness. Restless legs. Buttocks painful from to ?sores?. Review of Systems Constitutional: Constitutional: Denies headache(s) and Reports weakness Eyes: Eyes: Denies blurry vision ENT: Reports Normal hearing present, Denies headache(s), Denies neck pain and Reports post nasal drip Cardiovascular: Cardiovascular: Denies chest pain, Denies lightheadedness and Reports dyspnea Respiratory: Respiratory: Reports dyspnea Gastrointestinal: Gastrointestinal: Denies abdominal pain Genitourinary: Genitourinary: Denies dysuria Musculoskeletal: Musculoskeletal: Denies back pain, Denies neck pain and Denies numbness Integumentary/Breasts: Skin/Breast: Denies dry skin Neurologic: Reports Normal hearing present, Denies confusion, Denies headache(s), Denies numbness and Reports weakness Psychiatric: Psychiatric: Denies anxiety and Denies confusion Endocrine: Endocrine: Reports fatigue Hematologic/Lymphatic: Hematologic/Lymphatic: Denies easy bleeding and Denies easy bruising Allergic/Immunologic: Allergic/Immunologic: Denies GI upset with certain foods Exam Narrative: Exam Narrative: Elderly male sitting up in chair. Awake, alert, oriented x3. Const: General: cooperative, comfortable and no acute distress Orientation/consciousness: patient oriente
--- NOTE | 2020-04-17 11:38 | WPDANESEPPF ---
Anes - Initial Pre Proc Eval Procedure: Operation Date: 04/17/20 13:00 Proposed Procedures p Esophagogastroduodenoscopy & Colonoscopy - Daniel Roach MD Date/Time: 04/17/20 11:38 Surgeon: Darius Brandt MD Pre Op Diagnosis: bradycardia, anemia, generalized weakness, CHF Patient Data Age: 84 Gender: M Height: 1.82 m Weight: 111.5 kg Last Vital Signs Temp 36.3 C L 04/17/20 08:26 Pulse 52 L 04/17/20 10:00 Resp 26 H 04/17/20 08:26 BP 169/90 H 04/17/20 08:26 Pulse Ox 94 04/17/20 08:26 Allergies Allergy/AdvReac Type Severity Reaction Status Date / Time codeine Allergy Unknown Unknown Verified 04/16/20 03:26 hydrocodone Allergy Unknown Unknown Verified 04/16/20 03:26 Sulfa (Sulfonamide Allergy Unknown Unknown Verified 04/16/20 03:26 Antibiotics) Home Medications Medication Instructions Recorded Confirmed Type lorazepam 0.5 mg tablet 0.5 mg PO TID #90 tablet 10/18/19 04/16/20 Rx aspirin 81 mg PO DAILY 11/03/19 04/16/20 History atorvastatin 20 mg PO HS 11/03/19 04/16/20 History cetirizine 10 mg PO DAILY 11/03/19 04/16/20 History clopidogrel 75 mg PO DAILY 11/03/19 04/16/20 History finasteride 5 mg PO DAILY 11/03/19 04/16/20 History gabapentin 300 mg PO TID 11/03/19 04/16/20 History melatonin 5 mg PO HS PRN 11/03/19 04/16/20 History omeprazole 40 mg PO DAILY 11/03/19 04/16/20 History polyethylene glycol 3350 17 g PO DAILY PRN 11/03/19 04/16/20 History ropinirole 2 mg PO BID 11/03/19 04/16/20 History sertraline 50 mg PO DAILY 11/03/19 04/16/20 History tramadol 50 mg PO TID PRN 11/03/19 04/16/20 History apixaban [Eliquis] 2.5 mg PO Q12HR 30 Days #60 tablet 11/06/19 04/16/20 Rx acetaminophen 1,000 mg PO HS 04/16/20 04/16/20 History diphenhydramine HCl [Allergy 25 mg PO QID PRN 04/16/20 04/16/20 History (diphenhydramine)] Laboratory Tests 04/16/20 04/16/20 04/16/20 02:33 12:43 13:20 WBC RBC Hgb 7.9 g/dL L g/dL (14.0-18.0) Hct 27.0 % L % (42.0-52.0) MCV MCH MCHC RDW Plt Count MPV Immature Gran % (Auto) Neut % (Auto) Lymph % (Auto) Mcminn % (Auto) Eos % (Auto) Baso % (Auto) Lymph # (Auto) Mcminn # (Auto) Eos # (Auto) Baso # (Auto) Abs Immat Gran (auto) Absolute Neuts (auto) Absolute Nucleated RBC Nucleated RBC % Platelet Estimate Ovalocytes Sodium Potassium Chloride Carbon Dioxide Anion Gap BUN Creatinine Estim Creat Clear Calc Estimated GFR Glucose POC Capillary Glucose 109 mg/dl mg/dl (65-105) Calcium Magnesium Urine Osmolality Ur Random Sodium Crossmatch See Detail 04/16/20 04/16/20 04/16/20 13:20 13:41 13:41 WBC RBC Hgb Hct MCV MCH MCHC RDW Plt Count MPV Immature Gran % (Auto) Neut % (Auto) Lymph % (Auto) Mcminn % (Auto) Eos % (Auto) Baso % (Auto) Lymph # (Auto) Mcminn # (Auto) Eos # (Auto) Baso # (Auto) Abs Immat Gran (auto) Absolute Neuts (auto) Absolute Nucleated RBC Nucleated RBC % Platelet Estimate Ovalocytes Sodium 125 mmol/L L mmol/L (137-145) Potassium 5.6 mmol/L H mmol/L (3.4-5.0) Chloride 95 mmol/L L mmol/L (98-107) Carbon Dioxide 22 mmol/L mmol/L (22-30) Anion Gap 8 mmol/L mmol/L
[2020-04-17 11:50] LABS: Glucose Point of Care 106 (65-105)
--- NOTE | 2020-04-17 12:11 | PC.NURSE ---
pt leaving for the gi lab for colonoscopy and endoscopy
[2020-04-17] MEDS: LACTATED RINGERS 1,000 ML 150 ML IV CONT (12:28)
[2020-04-17 12:36] LABS: Glucose Point of Care 98 (65-105)
--- NOTE | 2020-04-17 14:20 | PM.IMPN ---
Progress Note: A&P Assessment and Plan (1) Acute GI bleeding: Code(s): K92.2 - Gastrointestinal hemorrhage, unspecified Status: Acute Assessment and Plan: r/o upper GI bleed. Telemetry, Strict Bedrest and NPO. pRBC transfusion now. Monitor H/H q 6 hrs. Acute GI bleeding is likely secondary to Eliquis, ASA and plavix use. We will hold anticoagulants and antiplatelet agents. The patient stated that he did have a history of previous GI bleeding. GI has been consulted by ER provider. Appreciate GI input. 04/17/20 14:20 patient 84-year-old male with history atrial fibrillation home aspirin, Plavix, and Eliquis, presented emergency department with a complaint being fatigued and tired upon arrival his hemoglobin was 7 and he was positive for stool Hemoccult in the ER, patient does have a history of bleeding AVMs, patient was given 1 unit of pack RBC he felt better, patient was seen by Cardiology as patient has a history atrial fibrillation flutter with bradycardia, due to bleeding patient is off anti-platelet and anticoagulation will be reassessed after EGD, today patient was taken to GI lab had a EGD and colonoscopy did not show any signs of bleeding, patient hemoglobin is remains stable, GI recommending to restart low-dose of Eliquis for anticoagulation for atrial fibrillation, patient also has bradycardia, patient will be seen by pbx inspector and further recommendation to follow (2) Symptomatic anemia: Code(s): D64.9 - Anemia, unspecified Status: Acute Assessment and Plan: Strict bedrest. Continue pRBC transfusion. Monitor H/H, transfuse prn. Plan is above (3) Atrial fibrillation with slow ventricular response: Code(s): I48.91 - Unspecified atrial fibrillation Status: Acute Assessment and Plan: The patient does not appear to be on any beta blockers of CCBs. I have checked his TSH which was normal. We will consult Cardiology to evaluate the patient. (4) Generalized weakness: Code(s): R53.1 - Weakness Status: Acute Assessment and Plan: Secondary to anemia and GI bleeding. Continue treatment for same. (5) Hypothermia: Code(s): T68.XXXA - Hypothermia, initial encounter Status: Acute Assessment and Plan: Anthony Milner. (6) Hyponatremia: Code(s): E87.1 - Hypo-osmolality and hyponatremia Status: Acute Assessment and Plan: Monitor serum sodium. Continue IV hydration. Check urine sodium and urine osm. 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 (7) Hyperkalemia: Code(s): E87.5 - Hyperkalemia Status: Acute Assessment and Plan: Likely seconadry to worsening renal failure. Monitor serum potassium. We will consider insulin + dextrose and sodium bicarbonate if the patient's potassium >6.0 or if he develops EKG changes. (8) Acute on chronic renal failure: Code(s): N17.9 - Acute kidney failure, unspecified; N18.9 - Chronic kidney disease, unspecified Status: Acute Assessment and Plan: Continue IV fluid challenge. Monitor renal function and urine output. Avoid nephrotoxic agents, renally dose medications. (9) Diabetes: Code(s): E11.9 - Type 2 diabetes mellitus without complications Status: Chronic Assessment and Plan: Accuchecks, SSI Coverage, hypoglycemic protocol. (10) Hyperlipidemia: Code(s): E78.5 - Hyperlipidemia, unspecified Status: Chronic Assessment and Plan: Resume statin therapy when appropriate. (11) Hypertension: Qualifiers: Hypertension type: essential hypertension Qualified Code(s): I10 - Essential (primary) hypertension Code(s): I10 - Essential (primary) hypertension Status: Chronic Assessment and Plan: Stable. Monitor blood pressure. He does not appear to be on any home antihypertensive medications. (12) Depression: Code(s): F32.9 - Major depressive disorder,
[2020-04-17 17:24] LABS: Glucose Point of Care 98 (65-105)
[2020-04-17] MEDS: rOPINIRole HCL 1 MG TABLET 2 MG PO (17:27)
[2020-04-17] MEDS: FUROSEMIDE INJ 40 MG/4 ML VIAL IV PUSH (17:27)
[2020-04-17] MEDS: PANTOPRAZOLE 40 MG TABLET PO (17:28)
[2020-04-17] MEDS: traMADol HCL (*CRX) 50 MG TABLET PO (17:28)
[2020-04-17] MEDS: GABAPENTIN 300 MG CAPSULE PO (17:28)
[2020-04-17] MEDS: LORazepam (*CRX) 0.5 MG TABLET PO (17:33)
[2020-04-17] MEDS: ATORVASTATIN 20 MG TABLET PO (20:20)
[2020-04-17] MEDS: MELATONIN 5 MG TABLET PO (20:20)
[2020-04-18] VITALS (12 sets, daily range): BP systolic 103–142; BP diastolic 44–71; PULSE 40–83; RESP 18–20; TEMP 35.9–36.6; O2SAT 94–100
[2020-04-18 04:56] LABS: Hemoglobin 7.6 g/dL (14.0-18.0); Mean Corpuscular HGB Conc 30.4 g/dl (32-36); Mean Corpuscular Hemoglobin 24.1 pg (26-34); Mean Corpuscular Volume 79.1 fl (80-100); Mean Platelet Volume 10.2 fl (7.4-10.4); Platelet Count Result 174 k/mm3 (150-375); Red Blood Count 3.16 M/mm3 (4.6-6.20)
[2020-04-18 05:13] LABS: Anion Gap 7 mmol/L (8-16); Blood Urea Nitrogen 35 mg/dL (9-20); Calcium 7.8 mg/dL (8.4-10.2); Carbon Dioxide 27 mmol/L (22-30); Chloride 93 mmol/L (98-107); Estimated CRCL calculation 31 ml/min; Estimated Glomerular Filt Rate 32; Glucose 131 mg/dL (75-110); Potassium 4.4 mmol/L (3.4-5.0); Sodium 127 mmol/L (137-145)
--- NOTE | 2020-04-18 08:52 | WPDANESPN ---
Anes - Prog Note Post-Op Date/Time: 04/18/20 08:52 Cardiovascular status: normal Respiratory status: normal Airway patency: baseline Mental status: baseline Post-Op hydration status: normal Vital Signs: Last Vital Signs Temp 36.4 C L 04/18/20 08:00 Pulse 42 L 04/18/20 08:00 Resp 18 04/18/20 08:00 BP 142/54 H 04/18/20 08:00 Pulse Ox 100 04/18/20 08:00 Pain Score (VAS): 0 I/O: Intake & Output 04/17/20 04/18/20 04/18/20 23:59 07:59 15:59 Intake Total 720 240 Output Total 1800 600 300 Balance -1080 -600 -60 Laboratory Tests 04/18/20 04:21 04/18/20 04:21 04/17/20 04/17/20 04/17/20 11:48 12:33 17:05 WBC RBC Hgb Hct MCV MCH MCHC RDW Plt Count MPV Sodium Potassium Chloride Carbon Dioxide Anion Gap BUN Creatinine Estim Creat Clear Calc Estimated GFR Glucose POC Capillary Glucose 106 98 98 Calcium 04/18/20 04/18/20 04:21 04:21 WBC 8.0 RBC 3.16 L Hgb 7.6 L Hct 25.0 L MCV 79.1 L MCH 24.1 L MCHC 30.4 L RDW 19.0 H Plt Count 174 MPV 10.2 Sodium 127 L Potassium 4.4 Chloride 93 L Carbon Dioxide 27 Anion Gap 7 L BUN 35 H Creatinine 2.00 H Estim Creat Clear Calc 31 Estimated GFR 32 L Glucose 131 H POC Capillary Glucose Calcium 7.8 L Post-procedural complaints: none Patient Feedback: Patient satisfied with anesthetic care.
[2020-04-18] MEDS: GABAPENTIN 300 MG CAPSULE PO ×3 (09:19→18:09)
[2020-04-18] MEDS: rOPINIRole HCL 1 MG TABLET 2 MG PO ×2 (09:19→18:10)
[2020-04-18] MEDS: LORATADINE 10 MG TABLET PO (09:20)
[2020-04-18] MEDS: PANTOPRAZOLE 40 MG TABLET PO (09:20)
[2020-04-18] MEDS: FINASTERIDE 5 MG TABLET PO (09:20)
[2020-04-18] MEDS: SERTRALINE HCL 50 MG TABLET PO (09:20)
--- NOTE | 2020-04-18 12:36 | PM.PNCARD ---
Progress Note: A&P Assessment and Plan (1) Symptomatic anemia: Code(s): D64.9 - Anemia, unspecified Status: Acute Assessment and Plan: Status post transfusion. He was on triple therapy including aspirin, clopidogrel and Eliquis. Uncertain as to the need for the antiplatelets. Restarting low-dose Eliquis of 2.5 mg p.o. b.i.d.. No bleeding found on endoscopy. Watch for bleeding Would not resume anti-platelet therapy. (2) Bradycardia: Code(s): R00.1 - Bradycardia, unspecified Status: Chronic Assessment and Plan: Obviously has conduction system disease. It is questionable as to whether not he is symptomatic from the bradycardia however. He denies lightheadedness or syncopal episodes. Pacemaker was discussed by Dr. Knapp. At first stated he did not want a pacemaker but he is now agreeable if he needs one. Episode of bradycardia with longest R to R was 2.72 seconds mostly through the night. No longer pauses noted on telemetry in the last 48 hours. Does not need a pacemaker at this time. Monitor symptoms as an outpatient avoid any AV tracy blocking agents. (3) Hypertension associated with diabetes: Code(s): E11.59 - Type 2 diabetes mellitus with other circulatory complications; I10 - Essential (primary) hypertension Status: Acute Assessment and Plan: Blood pressure at goal. (4) Acute on chronic renal failure: Code(s): N17.9 - Acute kidney failure, unspecified; N18.9 - Chronic kidney disease, unspecified Status: Acute Assessment and Plan: IV fluids were discontinued. PPI infusion has been stopped. He has finally been weaned off oxygen. Still has crackles to about 1/3 up posteriorly. Diuresed well yesterday. Will give a dose of furosemide again this afternoon. (5) Hyperkalemia: Code(s): E87.5 - Hyperkalemia Status: Acute Assessment and Plan: Potassium 4.4 again today. Continue to monitor. Additional Plan Plan discussed with Dr Burns [id number] 04/18/2020 Subjective Date/time seen: 04/18/20 12:36 Interval history: Follow-up for: Bradycardia, atrial flutter, symptomatic anemia, hyperkalemia, acute on chronic kidney disease, diabetes Date of service: 04/18/2020 Subjective: No chest discomfort, shortness of breath, lightheadedness or palpitations. Review of Systems Constitutional: Constitutional: Denies headache(s) and Reports weakness Eyes: Eyes: Denies blurry vision ENT: Denies headache(s), Denies neck pain and Reports post nasal drip Cardiovascular: Cardiovascular: Denies chest pain, Denies lightheadedness and Denies dyspnea Respiratory: Respiratory: Denies dyspnea Gastrointestinal: Gastrointestinal: Denies abdominal pain Genitourinary: Genitourinary: Denies dysuria Musculoskeletal: Musculoskeletal: Denies back pain, Denies neck pain and Denies numbness Integumentary/Breasts: Skin/Breast: Denies dry skin Neurologic: Reports Normal hearing present, Denies headache(s), Denies numbness and Reports weakness Psychiatric: Psychiatric: Denies anxiety Hematologic/Lymphatic: Hematologic/Lymphatic: Denies easy bleeding and Denies easy bruising Allergic/Immunologic: Allergic/Immunologic: Denies GI upset with certain foods Exam Narrative: Exam Narrative: Sitting up in chair. Awake, alert, oriented x3. Pleasant. Const: General: cooperative, comfortable and no acute distress Orientation/consciousness: patient oriented x3 HENMT: General nose exam: Normal nares present Eyes: Sclera: sclerae normal Neck: Neck: supple Resp: Auscultation: crackles bilateral in the mid lung [place] Cardio: Rate: regular rate Rhythm: abnormal rhythm regularly irregular Peripheral pulses: Peripheral pulses 2+ throughout Skin: General skin exam: normal color Neuro: General: patient oriented
[2020-04-18] MEDS: FUROSEMIDE INJ 40 MG/4 ML VIAL IV PUSH (13:46)
[2020-04-18] MEDS: ACETAMINOPHEN 325 MG TABLET 650 MG PO (13:53)
[2020-04-18] MEDS: APIXABAN 2.5 MG TABLET PO ×2 (14:02→21:02)
[2020-04-18 16:25] LABS: Glucose Point of Care 150 (65-105)
--- NOTE | 2020-04-18 17:05 | PM.IMPN ---
Progress Note: A&P Assessment and Plan (1) Acute GI bleeding: Code(s): K92.2 - Gastrointestinal hemorrhage, unspecified Status: Acute Assessment and Plan: r/o upper GI bleed. Telemetry, Strict Bedrest and NPO. pRBC transfusion now. Monitor H/H q 6 hrs. Acute GI bleeding is likely secondary to Eliquis, ASA and plavix use. We will hold anticoagulants and antiplatelet agents. The patient stated that he did have a history of previous GI bleeding. GI has been consulted by ER provider. Appreciate GI input. 04/18/20 17:05 patient 84-year-old male with history atrial fibrillation home aspirin, Plavix, and Eliquis, presented emergency department with a complaint being fatigued and tired upon arrival his hemoglobin was 7 and he was positive for stool Hemoccult in the ER, patient does have a history of bleeding AVMs, patient was given 1 unit of pack RBC he felt better, patient was seen by Cardiology as patient has a history atrial fibrillation flutter with bradycardia, due to bleeding patient is off anti-platelet and anticoagulation will be reassessed after EGD, today patient was taken to GI lab had a EGD and colonoscopy did not show any signs of bleeding, patient hemoglobin is remains stable, GI recommending to restart low-dose of Eliquis for anticoagulation for atrial fibrillation, today patient was seen by cane furniture maker and started the patient on Eliquis 2.5 mg b.i.d. will monitor for bleeding, patient also has bradycardia, appears to be asymptomatic mostly during the nighttime, patient seen by cane furniture maker does not recommend pacemaker the present time and further recommendation to follow if patient has remained clinically stable and has no complaint will discharge the patient home tomorrow (2) Symptomatic anemia: Code(s): D64.9 - Anemia, unspecified Status: Acute Assessment and Plan: Strict bedrest. Continue pRBC transfusion. Monitor H/H, transfuse prn. Plan is above (3) Atrial fibrillation with slow ventricular response: Code(s): I48.91 - Unspecified atrial fibrillation Status: Acute Assessment and Plan: The patient does not appear to be on any beta blockers of CCBs. I have checked his TSH which was normal. We will consult Cardiology to evaluate the patient. (4) Generalized weakness: Code(s): R53.1 - Weakness Status: Acute Assessment and Plan: Secondary to anemia and GI bleeding. Continue treatment for same. (5) Hypothermia: Code(s): T68.XXXA - Hypothermia, initial encounter Status: Acute Assessment and Plan: Anthony Milner. (6) Hyponatremia: Code(s): E87.1 - Hypo-osmolality and hyponatremia Status: Acute Assessment and Plan: Monitor serum sodium. Continue IV hydration. Check urine sodium and urine osm. 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 (7) Hyperkalemia: Code(s): E87.5 - Hyperkalemia Status: Acute Assessment and Plan: Likely seconadry to worsening renal failure. Monitor serum potassium. We will consider insulin + dextrose and sodium bicarbonate if the patient's potassium >6.0 or if he develops EKG changes. (8) Acute on chronic renal failure: Code(s): N17.9 - Acute kidney failure, unspecified; N18.9 - Chronic kidney disease, unspecified Status: Acute Assessment and Plan: Continue IV fluid challenge. Monitor renal function and urine output. Avoid nephrotoxic agents, renally dose medications. (9) Diabetes: Code(s): E11.9 - Type 2 diabetes mellitus without complications Status: Chronic Assessment and Plan: Accuchecks, SSI Coverage, hypoglycemic protocol. (10) Hyperlipidemia: Code(s): E78.5 - Hyperlipidemia, unspecified Status: Chronic Assessment and Plan: Resume statin therapy when appropriate. (11) Hypertension: Qualifiers: Hypertension type: essential hypertension Qualified Code(s): I10
[2020-04-18] MEDS: ATORVASTATIN 20 MG TABLET PO (21:02)
[2020-04-18] MEDS: MELATONIN 5 MG TABLET PO (21:03)
[2020-04-18 23:53] LABS: Glucose Point of Care 175 (65-105)
[2020-04-19] VITALS (14 sets, daily range): BP systolic 117–155; BP diastolic 46–88; PULSE 40–120; RESP 16–20; TEMP 35.6–36.7; O2SAT 97–100
[2020-04-19 05:41] LABS: Hematocrit 26.2 % (42.0-52.0); Hemoglobin 7.8 g/dL (14.0-18.0); Mean Corpuscular HGB Conc 29.8 g/dl (32-36); Mean Corpuscular Hemoglobin 23.4 pg (26-34); Mean Corpuscular Volume 78.4 fl (80-100); Mean Platelet Volume 10.6 fl (7.4-10.4); Platelet Count Result 183 k/mm3 (150-375); Red Blood Count 3.34 M/mm3 (4.6-6.20); Red Cell Distribution Width 19.1 % (11.5-14.5); White Blood Count 7.4 K/mm3 (4.5-10.0)
[2020-04-19 05:56] LABS: Osmolality, Urine 448 mOsm/kg (50-1200)
[2020-04-19 05:56] LABS: Anion Gap 8 mmol/L (8-16); Blood Urea Nitrogen 40 mg/dL (9-20); Calcium 8.1 mg/dL (8.4-10.2); Carbon Dioxide 29 mmol/L (22-30); Chloride 93 mmol/L (98-107); Estimated CRCL calculation 33 ml/min; Estimated Glomerular Filt Rate 34; Glucose 89 mg/dL (75-110); Potassium 3.9 mmol/L (3.4-5.0); Sodium 130 mmol/L (137-145)
[2020-04-19 08:40] LABS: Glucose Point of Care 85 (65-105)
[2020-04-19] MEDS: GABAPENTIN 300 MG CAPSULE PO ×3 (08:49→17:38)
[2020-04-19] MEDS: rOPINIRole HCL 1 MG TABLET 2 MG PO ×2 (08:49→17:38)
[2020-04-19] MEDS: PANTOPRAZOLE 40 MG TABLET PO (08:50)
[2020-04-19] MEDS: FINASTERIDE 5 MG TABLET PO (08:50)
[2020-04-19] MEDS: SERTRALINE HCL 50 MG TABLET PO (08:50)
[2020-04-19] MEDS: LORATADINE 10 MG TABLET PO (08:50)
[2020-04-19] MEDS: APIXABAN 2.5 MG TABLET PO ×2 (08:50→21:58)
--- NOTE | 2020-04-19 11:05 | PM.PNCARD ---
Progress Note: A&P Assessment and Plan (1) Symptomatic anemia: Code(s): D64.9 - Anemia, unspecified Status: Acute Assessment and Plan: Status post transfusion. He was on triple therapy including aspirin, clopidogrel and Eliquis. Uncertain as to the need for the antiplatelets. Eliquis of 2.5 mg p.o. b.i.d. restarted. No bleeding found on endoscopy. Watch for bleeding Would not resume anti-platelet therapy. (2) Bradycardia: Code(s): R00.1 - Bradycardia, unspecified Status: Chronic Assessment and Plan: He denies lightheadedness or syncopal episodes. Pacemaker was discussed by Dr. Knapp. At first stated he did not want a pacemaker but he is now agreeable if he needs one. Episode of bradycardia with longest R to R was 2.70 seconds again mostly through the night. No longer pauses noted on telemetry in the last 72 hours. Does not need a pacemaker at this time. Monitor symptoms as an outpatient avoid any AV tracy blocking agents. (3) Hypertension associated with diabetes: Code(s): E11.59 - Type 2 diabetes mellitus with other circulatory complications; I10 - Essential (primary) hypertension Status: Acute Assessment and Plan: Blood pressure at goal. (4) Acute on chronic renal failure: Code(s): N17.9 - Acute kidney failure, unspecified; N18.9 - Chronic kidney disease, unspecified Status: Acute Assessment and Plan: Diuresed well again yesterday. Off oxygen. Lungs are clear this morning (5) Hyperkalemia: Code(s): E87.5 - Hyperkalemia Status: Acute Assessment and Plan: Potassium 3.1 today. Continue to monitor as outpatient. Additional Plan OK to discharge from cardiac standpoint. See discharge instructions for follow-up. Plan discussed with Dr Burns 11:25 a.m. 04/19/2020 Subjective Date/time seen: 04/19/20 11:05 Interval history: Follow-up for: Bradycardia, atrial flutter, symptomatic anemia, hyperkalemia, acute on chronic kidney disease, diabetes Date of service: 04/19/2020 Subjective: Wants to go home. Denied chest discomfort, shortness of breath, lightheadedness or palpitations. Hit his toe on the over bed table yesterday and needs the bandage changed before he leaves. Review of Systems Constitutional: Constitutional: Denies headache(s) and Reports weakness Eyes: Eyes: Denies blurry vision ENT: Reports Normal hearing present, Denies headache(s), Denies neck pain and Reports post nasal drip Cardiovascular: Cardiovascular: Denies chest pain, Denies lightheadedness and Denies dyspnea Respiratory: Respiratory: Denies dyspnea Gastrointestinal: Gastrointestinal: Denies abdominal pain Genitourinary: Genitourinary: Denies dysuria Musculoskeletal: Musculoskeletal: Denies back pain, Denies neck pain and Denies numbness Integumentary/Breasts: Skin/Breast: Denies dry skin Neurologic: Reports Normal hearing present, Denies headache(s), Denies numbness and Reports weakness Psychiatric: Psychiatric: Denies anxiety Hematologic/Lymphatic: Hematologic/Lymphatic: Denies easy bleeding and Denies easy bruising Allergic/Immunologic: Allergic/Immunologic: Denies GI upset with certain foods Exam Narrative: Exam Narrative: Sitting up in chair. Awake, alert, oriented x3. Ready to go home. Const: General: cooperative, comfortable and no acute distress Orientation/consciousness: patient oriented x3 HENMT: General nose exam: Normal nares present Eyes: Sclera: sclerae normal Neck: Neck: supple Resp: Effort & Inspection: normal respiratory effort and able to speak in complete sentences Auscultation: clear to auscultation bilaterally Cardio: Rate: regular rate Rhythm: abnormal rhythm regularly irregular Peripheral pulses: Peripheral pulses 2+ throughout GI: GI Palp: Yes Soft to pal
[2020-04-19 12:37] LABS: Glucose Point of Care 133 (65-105)
--- NOTE | 2020-04-19 13:35 | PM.DS ---
DS: Admitting Diagnosis Admitting Diagnosis Admitting Diagnosis: Generalized weakness DS: Discharge Diagnosis Discharge Diagnosis (1) Acute GI bleeding: Code(s): K92.2 - Gastrointestinal hemorrhage, unspecified Status: Acute Assessment and Plan: r/o upper GI bleed. Telemetry, Strict Bedrest and NPO. pRBC transfusion now. Monitor H/H q 6 hrs. Acute GI bleeding is likely secondary to Eliquis, ASA and plavix use. We will hold anticoagulants and antiplatelet agents. The patient stated that he did have a history of previous GI bleeding. GI has been consulted by ER provider. Appreciate GI input. 04/18/20 17:05 patient 84-year-old male with history atrial fibrillation home aspirin, Plavix, and Eliquis, presented emergency department with a complaint being fatigued and tired upon arrival his hemoglobin was 7 and he was positive for stool Hemoccult in the ER, patient does have a history of bleeding AVMs, patient was given 1 unit of pack RBC he felt better, patient was seen by Cardiology as patient has a history atrial fibrillation flutter with bradycardia, due to bleeding patient is off anti-platelet and anticoagulation will be reassessed after EGD, today patient was taken to GI lab had a EGD and colonoscopy did not show any signs of bleeding, patient hemoglobin is remains stable, GI recommending to restart low-dose of Eliquis for anticoagulation for atrial fibrillation, today patient was seen by vocational rehabilitation specialist and started the patient on Eliquis 2.5 mg b.i.d. will monitor for bleeding, patient also has bradycardia, appears to be asymptomatic mostly during the nighttime, patient seen by vocational rehabilitation specialist does not recommend pacemaker the present time and further recommendation to follow if patient has remained clinically stable and has no complaint will discharge the patient home tomorrow (2) Symptomatic anemia: Code(s): D64.9 - Anemia, unspecified Status: Acute Assessment and Plan: Strict bedrest. Continue pRBC transfusion. Monitor H/H, transfuse prn. Plan is above (3) Atrial fibrillation with slow ventricular response: Code(s): I48.91 - Unspecified atrial fibrillation Status: Acute Assessment and Plan: The patient does not appear to be on any beta blockers of CCBs. I have checked his TSH which was normal. We will consult Cardiology to evaluate the patient. (4) Generalized weakness: Code(s): R53.1 - Weakness Status: Acute Assessment and Plan: Secondary to anemia and GI bleeding. Continue treatment for same. (5) Hypothermia: Code(s): T68.XXXA - Hypothermia, initial encounter Status: Acute Assessment and Plan: Anthony Milner. (6) Hyponatremia: Code(s): E87.1 - Hypo-osmolality and hyponatremia Status: Acute Assessment and Plan: Monitor serum sodium. Continue IV hydration. Check urine sodium and urine osm. 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 (7) Hyperkalemia: Code(s): E87.5 - Hyperkalemia Status: Acute Assessment and Plan: Likely seconadry to worsening renal failure. Monitor serum potassium. We will consider insulin + dextrose and sodium bicarbonate if the patient's potassium >6.0 or if he develops EKG changes. (8) Acute on chronic renal failure: Code(s): N17.9 - Acute kidney failure, unspecified; N18.9 - Chronic kidney disease, unspecified Status: Acute Assessment and Plan: Continue IV fluid challenge. Monitor renal function and urine output. Avoid nephrotoxic agents, renally dose medications. (9) Diabetes: Code(s): E11.9 - Type 2 diabetes mellitus without complications Status: Chronic Assessment and Plan: Accuchecks, SSI Coverage, hypoglycemic protocol. (10) Hyperlipidemia: Code(s): E78.5 - Hyperlipidemia, unspecified Status: Chronic Assessment and Plan: Resume statin therapy when appropriate. (11) Hypertension:
[2020-04-19 17:19] LABS: Glucose Point of Care 107 (65-105)
--- NOTE | 2020-04-19 20:14 | PC.NURSE ---
Tele monitor removed about 1845 since patient has discharge orders and is waiting for an ambulance. Patient is dressed in own clothes and IV just needs to be d/c when ambulance arrives. RN called report to ARMAAN Moreno this afternoon at [facility].
--- NOTE | 2020-04-19 21:20 | PC.NURSE ---
called [facility]. still waiting on ambulance to [facility] patient to go back to [facility]. now the time is 1145.
[2020-04-19] MEDS: ATORVASTATIN 20 MG TABLET PO (21:58)
[2020-04-19] MEDS: MELATONIN 5 MG TABLET PO (21:58)
--- NOTE | 2020-04-19 22:52 | PC.NURSE ---
RECEIVED A CALL FROM [facility]. AMBULANCE PUSHED BACK TO 0100 TO 0115 NOW.
[2020-04-20] VITALS: PULSE 86; RESP 20; O2SAT 97
[2020-04-20 04:00] VITALS: BP 105/42; PULSE 86; PULSE 90; RESP 20; TEMP 36.6; O2SAT 97
--- NOTE | 2020-04-20 04:54 | PC.NURSE ---
status for [facility] is now for 6 am pickup.
[2020-04-20 05:31] LABS: Hematocrit 25.2 % (42.0-52.0); Hemoglobin 7.4 g/dL (14.0-18.0); Mean Corpuscular HGB Conc 29.4 g/dl (32-36); Mean Corpuscular Hemoglobin 23.2 pg (26-34); Mean Platelet Volume 10.1 fl (7.4-10.4); Platelet Count Result 172 k/mm3 (150-375); Red Blood Count 3.19 M/mm3 (4.6-6.20); Red Cell Distribution Width 19.3 % (11.5-14.5); White Blood Count 6.2 K/mm3 (4.5-10.0)
[2020-04-20 06:00] LABS: Anion Gap 5 mmol/L (8-16); Blood Urea Nitrogen 35 mg/dL (9-20); Carbon Dioxide 30 mmol/L (22-30); Chloride 95 mmol/L (98-107); Estimated CRCL calculation 37 ml/min; Estimated Glomerular Filt Rate 38; Glucose 119 mg/dL (75-110); Potassium 3.8 mmol/L (3.4-5.0); Sodium 130 mmol/L (137-145)
--- NOTE | 2020-04-20 06:04 | PC.NURSE ---
status from [facility] is around 630am now.
== END 2020-04-20 07:22 | DRG 813 ==
LOC: ANHED 04-16 01:06 → ANH3MED 04-16 04:50 → ANHIMU 04-16 20:16 → ANH3MED 04-25 09:17 → ANHIMU 04-25 09:17
PROVIDERS: Internal Medicine Gastroenterology; Admitting Provider Family Medicine; Emergency Provider Emergency Medicine; PCP Family Medicine; Visit Provider Family Medicine
PROC: 0DJ08ZZ Inspection of Upper Intestinal Tract, Via Natural or Artificial Opening Endoscopic (ICD-10-PCS; CPT 43235; principal; 2020-04-17 13:00)
DX: D68.32 Hemorrhagic disorder due to extrinsic circulating anticoagulants; K57.31 Diverticulosis of large intestine without perforation or abscess with bleeding; I50.33 Acute on chronic diastolic (congestive) heart failure; E87.1 Hypo-osmolality and hyponatremia; N17.9 Acute kidney failure, unspecified; I13.0 Hypertensive heart and chronic kidney disease with heart failure and stage 1 through stage 4 chronic kidney disease, or unspecified chronic kidney disease; D68.318 Other hemorrhagic disorder due to intrinsic circulating anticoagulants, antibodies, or inhibitors; K63.5 Polyp of colon; K63.89 Other specified diseases of intestine; K64.8 Other hemorrhoids; T45.515A Adverse effect of anticoagulants, initial encounter; T39.015A Adverse effect of aspirin, initial encounter; T45.525A Adverse effect of antithrombotic drugs, initial encounter; D50.9 Iron deficiency anemia, unspecified; T68.XXXA Hypothermia, initial encounter; E11.59 Type 2 diabetes mellitus with other circulatory complications; E11.22 Type 2 diabetes mellitus with diabetic chronic kidney disease; N18.30 Chronic kidney disease, stage 3 unspecified; E87.5 Hyperkalemia; F32.9 Major depressive disorder, single episode, unspecified; R00.1 Bradycardia, unspecified; I48.91 Unspecified atrial fibrillation; R53.1 Weakness; E78.5 Hyperlipidemia, unspecified; Z79.01 Long term (current) use of anticoagulants; Z79.82 Long term (current) use of aspirin; Z79.899 Other long term (current) drug therapy; Z87.891 Personal history of nicotine dependence
CPT/HCPCS: 36415; 36430; 51701; 71045; 71046; 80048; 80053; 81003; 83735; 83880; 83935; 84300; 84443; 84484; 85014; 85018; 85025; 85027; 85610; 85730; 86850; 86900; 86901; 86920; 88305; 93005; 96360; 99285; A9270; C9113; J1940; J2704; J7030; J7050; J7060; J7120; P9016

== ENCOUNTER 2021-08-28 13:34 | Outpatient (CLI) | payer MEDICARE, OTHER, MEDICAID, SELFPAY ==
--- NOTE | ~2021-08-28 | CT_ITS ---
EXAMINATION: CT cervical spine wo con DATE: 08/28/2021 14:36 INDICATION: Other cervical disc degeneration. TECHNIQUE: Computed tomography (CT) of the cervical spine was performed without intravenous contrast. Automated exposure control and iterative reconstruction technique were employed. The dose-length pro duct was 501.48 mGy-cm. COMPARISON: CT cervical spine 06/16/2019 FINDINGS: There is 2 mm anterolisthesis of C7 on T1. Vertebral body heights are normal. There is mode rately decreased disc height at C2-C3 and severely decreased disc height from C3-C4 through C6-C7. Th e following disc levels are specifically discussed: C2-C3: There is mild bilateral uncovertebral joint osteoarthritis. There is severe bilateral facet krista int osteoarthritis. There is mild bilateral neural foraminal stenosis. There is mild central canal st enosis. C3-C4: There is severe bilateral uncovertebral joint osteoarthritis. There is severe bilateral facet joint osteoarthritis. There is mild right and moderate left neural foraminal stenosis. There is mild central canal stenosis. C4-C5: There is severe bilateral uncovertebral joint osteoarthritis. There is severe bilateral facet joint osteoarthritis. There is mild right and moderate left neural foraminal stenosis. There is mild central canal stenosis. C5-C6: There is severe bilateral uncovertebral joint osteoarthritis. There is mild bilateral facet krista int osteoarthritis. There is moderate bilateral neural foraminal stenosis. There is moderate central canal stenosis. C6-C7: There is severe bilateral uncovertebral joint osteoarthritis. There is mild right and severe l eft facet joint osteoarthritis. There is moderate bilateral neural foraminal stenosis. There is moder ate central canal stenosis. C7-T1: There is mild bilateral uncovertebral joint osteoarthritis. There is severe bilateral facet krista int osteoarthritis. There is moderate bilateral neural foraminal stenosis. There is no central canal stenosis. IMPRESSION: 1. Severe cervical spondylosis, stable from 06/16/2019. Reviewed, dictated and finalized at location [facility].
--- NOTE | ~2021-08-28 | CT_ITS ---
EXAMINATION: CT diagnostic chest wo con DATE: 08/28/2021 14:36 INDICATION: Shortness of breath TECHNIQUE: Computed tomography (CT) of the chest was performed without intravenous contrast. The dose -length product (DLP) was 725.39 mGy-cm. Automated exposure control and iterative reconstruction tech F[place] were employed. COMPARISON: None FINDINGS: There are small pleural effusions, left greater than right. There is mild atelectasis of th e lingula and left lower lobe. Left upper lobe nodules measure up to 3 mm. There is no pneumothorax. Cardiomegaly is noted. There is calcified coronary artery atherosclerosis. Calcified pulmonary nodule s and calcified bilateral hilar and mediastinal lymph nodes are consistent with old granulomatous dis ease. Mild gynecomastia is noted. There is advanced osteoarthritis of the right glenohumeral joint. T here is severe thoracic spondylosis. IMPRESSION: 1. Small pleural effusions with mild atelectasis in the lingula and left lower lobe. 2. Cardiomegaly. Reviewed, dictated and finalized at location A.
== END 2021-08-28 13:35 | disposition home or self-care (01) ==
PROVIDERS: PCP Family Medicine; Visit Provider Family Medicine
DX: R06.02 Shortness of breath (principal); M50.30 Other cervical disc degeneration, unspecified cervical region; R91.8 Other nonspecific abnormal finding of lung field; M47.812 Spondylosis without myelopathy or radiculopathy, cervical region; J90 Pleural effusion, not elsewhere classified; I51.7 Cardiomegaly
CPT/HCPCS: 71250; 72125

== ENCOUNTER 2021-11-11 17:41 | Inpatient (IN) | payer MEDICARE, OTHER, MEDICAID, SELFPAY ==
[2021-11-11] VITALS (14 sets, daily range): BP systolic 111–161; BP diastolic 52–88; PULSE 50–89; RESP 12–29; TEMP 36.4–36.8; O2SAT 93–100; BMI 38.3
--- NOTE | ~2021-11-11 | XR_ITS ---
EXAMINATION: XR chest 1V portable INDICATION: Shortness of breath, fluid overload TECHNIQUE: Portable AP chest at 0731 hours COMPARISON: 11/17/2021 FINDINGS: A mild diffuse interstitial pattern persists but has improved. Cardiomegaly is stable. Ther e is a small left pleural effusion. No pneumothorax is identified. There are minimal airspace opaciti es of the left lung base. Advanced osteoarthritis is noted in the right glenohumeral joint. Enteric c ontrast material from recent modified barium swallow is noted. IMPRESSION: 1. Cardiomegaly with improving pulmonary edema. 2. Small left pleural effusion with associated left basilar airspace opacity, atelectasis versus pneu monia. Reviewed, dictated and finalized at location B. IMPRESSION: 1. Cardiomegaly with improving pulmonary edema. 2. Small left pleural effusion with associated left basilar airspace opacity, a telectasis versus pneumonia.
--- NOTE | ~2021-11-11 | XR_ITS ---
EXAMINATION: XR chest 1V portable DATE: 11/13/2021 12:42 INDICATION: Congestive heart failure. TECHNIQUE: A single frontal view of the chest was obtained. COMPARISON: Chest single view 11/12/2021, chest CT 08/28/2021 FINDINGS: There are airspace opacities in all lung zones bilaterally with a perihilar and lower lung predominance. There are small pleural effusions. No pneumothorax. Cardiomegaly is noted. IMPRESSION: 1. Worsened diffuse lung disease, consistent with pulmonary edema versus pneumonia. 2. Stable small pleural effusions. 3. Cardiomegaly. Reviewed, dictated and finalized at location A. IMPRESSION: 1. Worsened diffuse lung disease, consistent with pulmonary edema versus pneumo cassius. 2. Stable small pleural effusions. 3. Cardiomegaly.
--- NOTE | ~2021-11-11 | US_ITS ---
EXAMINATION: US thoracentesis DATE: 11/16/2021 12:33 INDICATION: pleural effusion TECHNIQUE: The procedure and its risks and benefits were discussed with the patient. Potential risks discussed included bleeding, infection, and pneumothorax. The patient understood the risks and agreed to proceed. The skin was prepped and draped in sterile fashion. 1% lidocaine was used for local anes thesia. Under ultrasound guidance, a 5 Fr catheter with trochar was advanced into the left pleural ef fusion. Fluid was aspirated. The catheter was removed, and a dressing was applied. There were no imme diate complications. FINDINGS: Ultrasound images demonstrate a small left pleural effusion and the catheter within the fluid. IMPRESSION: 1. Successful ultrasound-guided thoracentesis yielding 600 mL of slightly cloudy dark esthela-colored fluid. Reviewed, dictated and finalized at location A. IMPRESSION: 1. Successful ultrasound-guided thoracentesis yielding 600 mL of slightly clou dy dark esthela-colored fluid.
--- NOTE | ~2021-11-11 | XR_ITS ---
EXAMINATION: XR chest 1V portable DATE: 11/14/2021 06:08 INDICATION: Congestive heart failure TECHNIQUE: frontal view of the chest was obtained. COMPARISON: Chest radiograph dated 11/13/2021 FINDINGS: Resolution of opacities throughout much of the right lung with more dense opacities now in the medial right mid to lower lung zone. Which suggests possible collapsed right lower lobe. No evident pleural effusion at the right costophrenic angle. Persistent opacities in the left mid to lower lung zone wh ich includes a small to moderate-sized left pleural effusion. No pneumothorax. Prominent cardiomegaly . IMPRESSION: 1. Improvement in opacities throughout much of the right lung but with more dense opacities now in th e medial right mid to lower lung zone with configuration suggesting possible right lower lobe collaps e. 2. No significant change in opacities in the left mid to lower lung zone consistent with small to mod erate left pleural effusion with associated atelectasis and/or pneumonia. 3. Cardiomegaly. Reviewed, dictated and finalized at location A. IMPRESSION: 1. Improvement in opacities throughout much of the right lung but with more den se opacities now in the medial right mid to lower lung zone with configuration suggesting possible right lower lobe collapse. 2. No significant change in opacities in the left mid to lower lung zone consis tent with small to moderate left pleural effusion with associated atelectasis a nd/or pneumonia. 3. Cardiomegaly.
--- NOTE | ~2021-11-11 | XR_ITS ---
EXAMINATION: XR chest 2V Exam Date/Time: 11/11/2021 18:12 CDT HISTORY: INCREASED SOB TODAY HX A.FIB,HTN,CHF,FORMER SMOKER Comparison: 04/17/2020. RESULT: Lines, tubes, and devices: None. Lungs and pleura: Diffuse reticular opacities and vascular indistinctness. Patchy perihilar and lowe r lung opacities. Left hemidiaphragm elevation. Bilateral angle blunting. Cardiomediastinal silhouette: Stable cardiomediastinal silhouette. Other: No acute osseous or upper abdominal finding. IMPRESSION: Opacities may reflect pulmonary edema with small bilateral effusions. Infection is not excluded. Reviewed, dictated and finalized at location K.
--- NOTE | ~2021-11-11 | XR_ITS ---
EXAMINATION: XR_[id number]_CR DATE: 11/16/2021 12:27 INDICATION: Status post left thoracentesis TECHNIQUE: frontal view of the chest was obtained. COMPARISON: Chest radiograph and CT dated 11/14/2021 FINDINGS: Improved aeration at the left lung base. Elevation the left hemidiaphragm. Opacities at the bilateral lower lung zones which could represent atelectasis, pneumonia, small pleural effusions or some combi nation thereof. No pneumothorax. Cardiomegaly. IMPRESSION: 1. Improved aeration of the left lower lung zone post thoracentesis. No pneumothorax. 2. Opacities at the bilateral lower lung zones which could represent atelectasis, pneumonia, small pl eural effusions or some combination thereof. 3. Cardiomegaly. Reviewed, dictated and finalized at location A. IMPRESSION: 1. Improved aeration of the left lower lung zone post thoracentesis. No pneumot horax. 2. Opacities at the bilateral lower lung zones which could represent atelectasi s, pneumonia, small pleural effusions or some combination thereof. 3. Cardiomegaly.
--- NOTE | ~2021-11-11 | CT_ITS ---
EXAMINATION:CT diagnostic chest wo con DATE: 11/14/2021 12:36 INDICATION: Lung collapse. TECHNIQUE: Computed tomography (CT) of the chest was performed without intravenous contrast. Automate d exposure control and iterative reconstruction technique were employed. The dose-length product (DLP ) was 973.75 mGy-cm. COMPARISON: Chest CT 08/28/2021, chest single view 11/14/2021 FINDINGS: The lungs demonstrate smooth septal thickening and scattered nodules and groundglass opacit ies. There are dependent airspace opacities. Calcified pulmonary nodules and calcified hilar and medi astinal lymph nodes are consistent with old granulomatous disease. There are small right and moderate -sized left pleural effusions. Cardiomegaly is noted. There are coronary artery calcifications. No pe ricardial effusion. There is bilateral gynecomastia. Calcifications in the spleen are consistent with old granulomatous disease. There are cysts in the kidneys measuring up to 2.5 cm on the right. There is severe cervical and thoracic spondylosis. There is mild chronic anterior wedging of multiple vert ebral bodies. IMPRESSION: 1. Diffuse lung disease with worsening from 08/28/2021, likely moderate pulmonary edema without or with superimposed pneumonia. 2. Small right and moderate-sized left pleural effusions. 3. Cardiomegaly. Reviewed, dictated and finalized at location A.
--- NOTE | ~2021-11-11 | XR_ITS ---
MODIFIED ESOPHAGRAM HISTORY: Dysphagia. TECHNIQUE: Modified barium esophagram was performed by speech pathologist under radiologist fluorosco pic guidance. This was recorded on tape. The exam was reviewed on 11/17/2021 13:58 CDT. The DAP for this procedure was 2 Gycm2. Fluoroscopy time is 2.3 minutes. FINDINGS: Lateral projection of the cervical spine demonstrates normal alignment. There is normal s wallowing function without evidence for penetration or aspiration.. IMPRESSION: 1: Normal swallowing function without penetration or aspiration. 2: Please refer to speech pathologist report for additional detail. Reviewed, dictated and finalized at location A.
--- NOTE | ~2021-11-11 | XR_ITS ---
EXAMINATION: XR chest 1V portable DATE: 11/12/2021 05:43 INDICATION: TECHNIQUE: COMPARISON: Chest radiograph dated FINDINGS: No significant interval change in bilateral scattered patchy airspace opacities superimposed over a g radient of more hazy lower lung predominant small bilateral posterior layering pleural effusions. No pneumothorax. Cardiomegaly. IMPRESSION: 1. Unchanged small bilateral pleural effusions. 2. Unchanged superimposed patchy atelectasis, edema, pneumonia or some combination thereof. Reviewed, dictated and finalized at location A. IMPRESSION: 1. Unchanged small bilateral pleural effusions. 2. Unchanged superimposed patchy atelectasis, edema, pneumonia or some combinat ion thereof.
--- NOTE | ~2021-11-11 | XR_ITS ---
XR chest 1V portable 11/17/2021 09:45 Indication: Shortness of breath Procedure: AP portable chest Comparison: Comparison to multiple prior studies sequentially, with oldest reviewed study dated 11/14. Findings: Cardiomegaly. Progression of diffuse bilateral airspace disease, most likely edema. Small p leural effusions. No pneumothorax. Impression: 1: Progression of bilateral airspace disease, most likely edema. 2: Cardiomegaly. Reviewed, dictated and finalized at location A. Impression: 1: Progression of bilateral airspace disease, most likely edema. 2: Cardiomegaly.
--- NOTE | ~2021-11-11 | XR_ITS ---
XR chest 1V portable 11/16/2021 07:53 Indication: Fluid overload. Pleural effusions. Procedure: AP portable chest Comparison: Comparison to multiple prior studies sequentially, with oldest reviewed study dated 11/11. Findings: Cardiomegaly with mild interstitial edema. Possible small effusion. No pneumothorax identif ied. There is a right ninth rib fracture, likely subacute or chronic. No pneumothorax. Severe right g lenohumeral joint osteoarthritis. Mild left glenohumeral joint osteoarthritis. Impression: 1: Cardiomegaly with mild interstitial edema. Reviewed, dictated and finalized at location A. Impression: 1: Cardiomegaly with mild interstitial edema.
--- NOTE | 2021-11-11 17:51 | ECG_ITS ---
Measurements Intervals [place] Rate: 72 P: RI: 0 QRS: -46 QRSD: 179 T: 43 QT: 488 QTc: 536 Interpretive Statements ATRIAL FLUTTER/TACHYCARDIA WITH CONTROLLED VENTRICULAR RESPONSE RIGHT BUNDLE BRANCH BLOCK LEFT ANTERIOR FASCICULAR BLOCK BASELINE ARTIFACT- II, AVR, AVL, AVF, V1-V6 ABNORMAL ECG Electronically Signed On 11-11-2021 23:14:53 CDT by Alvaro Kim D.O.
--- NOTE | 2021-11-11 18:26 | ED.SOB ---
HPI - SOB/Dyspnea General Chief Complaint: Shortness of Breath/Dyspnea Stated Complaint: SOB Time Seen by Provider: 11/11/21 18:25 History of Present Illness HPI Narrative: Patient is a 86-year-old male with a history of HTN, hyperlipidemia, and atrial flutter on Eliquis here for evaluation of shortness of breath today at his nursing facility. Patient is a poor historian, but he tells me that he woke up today feeling somewhat short of breath. His oxygen saturations were noted to be 88 on room air, he was slowly titrated up to 6 L nasal cannula. He tells me he usually does not have an oxygen requirement, and the oxygen has improved his symptoms. Also reports some bilateral lower extremity swelling. Denies any chest pain, fevers, cough. He denies history of heart failure. Related Data Home Medications Medication Instructions Recorded Confirmed atorvastatin 20 mg tablet 20 mg PO HS 11/03/19 11/11/21 cetirizine 10 mg tablet 10 mg PO DAILY 11/03/19 11/11/21 finasteride 5 mg tablet 5 mg PO DAILY 11/03/19 11/11/21 gabapentin 300 mg capsule 300 mg PO TID 11/03/19 11/11/21 ropinirole 1 mg tablet 2 mg PO QID 11/03/19 11/11/21 acetaminophen 325 mg tablet 650 mg PO Q6H PRN Pain 11/11/21 11/11/21 amlodipine 10 mg tablet 10 mg PO DAILY 11/11/21 11/11/21 apixaban 2.5 mg tablet 2.5 mg PO Q12H 11/11/21 11/11/21 bisacodyl 10 mg rectal suppository 10 mg RECTAL DAILY PRN Constipation 11/11/21 11/11/21 duloxetine 30 mg capsule,delayed 30 mg PO DAILY 11/11/21 11/11/21 release (Cymbalta) furosemide 80 mg tablet 80 mg PO BID 11/11/21 11/11/21 magnesium citrate (Citroma oral 300 ml PO DAILY PRN Constipation 11/11/21 11/11/21 solution) magnesium hydroxide 400 mg/5 mL 30 ml PO HS PRN Constipation 11/11/21 11/11/21 oral suspension (Milk of Magnesia) sodium phosphates 19 gram-7 118 ml RECTAL PRN PRN Constipation 11/11/21 11/11/21 gram/118 mL enema (Fleet Enema) tramadol 50 mg tablet 50 mg PO Q6H PRN Pain (Scale Score 11/11/21 11/11/21 7-10) Allergies Allergy/AdvReac Type Severity Reaction Status Date / Time codeine Allergy Unknown Unknown Verified 11/11/21 21:47 hydrocodone Allergy Unknown Unknown Verified 11/11/21 21:47 Sulfa (Sulfonamide Allergy Unknown Unknown Verified 11/11/21 21:47 Antibiotics) Review of Systems Review of Systems: Gen.: Denies fevers or chills Eyes: Denies eye pain or visual change ENT: Denies congestion Respiratory: Reports shortness of breath. Denies cough CV: Denies chest pain or palpitations GI: Denies abdominal pain nausea, emesis or diarrhea denies burning, urgency, frequency or hematuria Musculoskeletal: Reports leg swelling. denies back pain or muscle pain Neuro: Denies numbness, tingling, weakness or focal weakness Skin: Denies rash Except as documented, all other systems reviewed and negative PMFSH Past Medical History Medical History Acute GI bleeding Acute on chronic renal failure Anemia Anxiety Arthritis bilateral hands Atrial fibrillation with slow ventricular response Back pain Bladder cancer BPH (benign prostatic hyperplasia) Cataracts, bilateral Chronic kidney disease, stage 3 Congestive heart failure Diastolic DDD (degenerative disc disease) C7 Depression Diabetes DJD of shoulder Fractures lt fibula GERD (gastroesophageal reflux disease) GI bleed History of left common carotid artery stent placement Hyperlipidemia Hypertension Obesity Somatic dysfunction of left upper extremity 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
[2021-11-11 18:40] LABS: Basophils Percent Auto 0.4 % (0.2-1.2); Eosinophils Absolute Auto 0.2 K/mm3 (0-0.3); Eosinophils Percent Auto 2.2 % (0-4.4); Hematocrit 27.7 % (42.0-52.0); Hemoglobin 8.3 g/dL (14.0-18.0); Immature Granulocyte Absolute 0.03 K/mm3 (0.00-0.031); Immature Granulocyte Percent A 0.4 % (0-0.5); Lymphocytes Absolute Auto 0.79 K/mm3 (0.9-3.2); Lymphocytes Percent Auto 11.5 % (18.3-44.2); Mean Corpuscular Hemoglobin 29.4 pg (26-34); Mean Corpuscular Volume 98.2 fl (80-100); Mean Platelet Volume 9.5 fl (7.4-10.4); Monocytes Absolute Auto 0.4 K/mm3 (0.1-0.6); Monocytes Percent Auto 5.4 % (2.6-8.5); Neutrophils Absolute Auto 5.5 K/mm3 (1.3-6.7); Neutrophils Percent Auto 80.1 % (45.5-73.1); Platelet Count Result 149 k/mm3 (150-375); Red Blood Count 2.82 M/mm3 (4.6-6.20); Red Cell Distribution Width 15.8 % (11.5-14.5); White Blood Count 6.9 K/mm3 (4.5-10.0)
[2021-11-11 18:54] LABS: Alanine Aminotransferase 23 U/L (6-50); Albumin Level 4.2 g/dL (3.5-5.1); Alkaline Phosphatase 130 U/L (38-126); Anion Gap 7 mmol/L (8-16); Aspartate Amino Transferase 26 U/L (17-59); Bilirubin,Total 0.5 mg/dL (0.2-1.3); Blood Urea Nitrogen 60 mg/dL (9-20); Calcium 7.9 mg/dL (8.4-10.2); Carbon Dioxide 31 mmol/L (22-30); Chloride 97 mmol/L (98-107); Estimated CRCL calculation 28 ml/min; Estimated Glomerular Filt Rate 30; Glucose 128 mg/dL (65-110); Potassium 4.3 mmol/L (3.4-5.0); Sodium 135 mmol/L (137-145)
[2021-11-11 19:00] LABS: Alveolar/Arterial O2 Gradient 224.6 mmHg; Base Excess ABG 3.7 mEq/l (+/-2.0); Fractional Inspired Oxygen 52 %; HCO3 ABG 32.3 mEq/l (22.0-26.0); Oxygen Content ABG 11.7 %vol (16.0-22.0); PO2 ABG 61.3 mmHg (80.0-100.0); PO2 FiO2 Ratio Arterial Blood 1.18 %; Total Hemoglobin 9.7 g/dL (12.0-18.0)
[2021-11-11 19:02] LABS: pH ABG 7.248 (7.350-7.450)
[2021-11-11 19:03] LABS: Oxygen Saturation ABG 86.4 % (95.0-100.0); PCO2 ABG 75.8 mmHg (35.0-45.0)
[2021-11-11 19:04] LABS: Device NASAL CANNULA; Modified Allen's Test Pass; Oxyhemoglobin 85.6 % THb (90.0-100.0); Site Drawn RIGHT RADIAL
[2021-11-11 19:13] LABS: NT Pro B Type Natriuretic Pept 4660 pg/mL (5-100)
--- NOTE | 2021-11-11 19:26 | PC.NURSE ---
Assumed care of pt, pt is being placed on BIPAP at this time. Pt is alert and upright, VSS. Discussed POC.
[2021-11-11 20:02] LABS: SARS-CoV-2 RNA PCR Negative
[2021-11-11] MEDS: FUROSEMIDE INJ 40 MG/4 ML VIAL IV PUSH (20:13)
--- NOTE | 2021-11-11 20:21 | PM.IMHP ---
H&P: HPI History of Present Illness Date/Time: 11/11/21 20:21 Chief Complaint: Shortness of breath Narrative: This is an 86-year-old male with past medical history significant for atrial fibrillation, chronic kidney disease, congestive heart failure, degenerative joint disease, depression. Patient presents to the emergency room due to shortness of breath and low pulse ox at home into the 80's range. Patient had similar admission to the [facility] where he was diuresed and sent home on supplemental oxygen 2-4 L by nasal cannula. History taking is limited due to the use of BiPAP at the time of my visit. Most of the history has been obtained no prone reviewing medical records. Preliminary workup was significant for blood gas with a pH of 7.2 pCO2 of 75 PO261, hemoglobin of 8, BUN 60 creatinine 2.1 a chest x-ray was significant for opacities. Patient is been admitted for further evaluation management and treatment. Review of Systems Review of Systems: ROS unobtainable: Yes unobtainable due to medical condition (On BiPAP) [facility] Past Medical History Medical History Acute GI bleeding Acute on chronic renal failure Anemia Anxiety Arthritis bilateral hands Atrial fibrillation with slow ventricular response Back pain Bladder cancer BPH (benign prostatic hyperplasia) Cataracts, bilateral Chronic kidney disease, stage 3 Congestive heart failure Diastolic DDD (degenerative disc disease) C7 Depression Diabetes DJD of shoulder Fractures lt fibula GERD (gastroesophageal reflux disease) GI bleed History of left common carotid artery stent placement Hyperlipidemia Hypertension Obesity Somatic dysfunction of left upper extremity 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 He lives with his and that is his durable power collections attorney for healthcare. The patient is modified code. He said he does not want to be intubated. He does not want any life support. He worked for the [employer] for 37 years and is retired. He quit smoking in 1978 and quit drinking in the s. No marijuana or illicit drugs. Smoking packs per day: 2.5 Smoking cigarettes per day: 50.0 Smoking status: Former smoker Tobacco type: cigarettes Smoking end date: 04/28/78 Alcohol intake: former Substance use: never Substance use type: does not use Gender identity (if verbalized by the patient): Male Sexual Orientation (if Verbalized by the Patient): Straight or Heterosexual Spiritual care concerns: No Meds Home Medications and Allergies Home Medications Medication Instructions Recorded Confirmed Type atorvastatin 20 mg tablet 20 mg PO HS 11/03/19 11/11/21 History cetirizine 10 mg tablet 10 mg PO DAILY 11/03/19 11/11/21 History finasteride 5 mg tablet 5 mg PO DAILY 11/03/19 11/11/21 History gabapentin 300 mg capsule 300 mg PO TID 11/03/19 11/11/21 History ropinirole 1 mg tablet 2 mg PO QID 11/03/19 11/11/21 History lorazepam 0.5 mg tablet 0.5 mg PO TID #90 tabs 11/09/21 11/11/21 Rx acetaminophen 325 mg tablet 650 mg PO Q6H PRN Pain 11/11/21 11/11/21 History amlod
--- NOTE | 2021-11-11 21:23 | PC.NURSE ---
This patient, Cristi Shelton, was admitted to IMU Room 231-01. Patient/family oriented to hospital policies and general routines including ID bracelet, bed and alarms, visiting hours, pain management, procedures, bathroom and other care routines, personal items, smoking policy, room service/diet, and visiting hours. Information on how to activate the Rapid Response Team has been discussed. Patient/Family are encouraged to report perceived risks to care and to ask questions if they do not understand what they are told or what they should do.
[2021-11-11 22:20] LABS: Troponin I 0.028 ng/mL (0.000-0.034)
[2021-11-12] VITALS (16 sets, daily range): BP systolic 113–148; BP diastolic 47–72; PULSE 46–94; RESP 20–24; TEMP 36.2–36.7; O2SAT 90–100
--- NOTE | 2021-11-12 | ECHO_ITS ---
Patient Info Name: Cristi Shelton Age: 86 years : 1935 Gender: Male Ht: 71 in Wt: 275 lbs BSA: 2.55 m2 HR: 77 bpm BP: 144 / 71 mmHg Heart Rhythm: Sinus Rhythm Technical Quality: Poor Exam Date: 11/12/2021 12:56 PM Exam Location: [facility] Pulmonary Patient Status: Inpatient Admit Date: 11/11/2021 Staff Ordering Physician: Phong Moya MD Manager Competitive Intelligence: Katia Zamarripa RDCS Attending Provider: Phong Moya MD Exam Type: CA echo dop color flow w con Study Info Indications - Congestive heart failure Complete two-dimensional, color flow and Doppler transthoracic echocardiogram is performed with contrast to opacify the left ventricle and to improve the deliniation of the left ventricle endocardial borders. Contrast/Agitated Saline Contrast/Ag. Saline: Definity Amount: 3.00 ml Administered By: Katia Zamarripa RDCS Existing IV Access: Yes IV Access Condition: patent with no signs of infiltration Summary 1. Moderate left ventricular enlargement with normal wall thickness. Mild left ventricular dysfunction with severe hypokinesis to akinesis of the mid and basal inferoseptal segments. Ejection fraction appears to be 45-50% visually. Grade 2 diastolic dysfunction is present. 2. Left atrial chamber dimension is moderately enlarged. 3. The mitral valve annulus is mildly calcified. Trace regurgitation. 4. No pulmonary hypertension, estimated pulmonary arterial systolic pressure is 30 mmHg. Difficult to visualize. 5. Dilated inferior vena cava with >50% collapse upon inspiration consistent with elevated right atrial pressure, 10 mmHg. 6. Technically difficult study. Definity echo contrast used. Left Ventricle Left ventricular chamber dimension is moderately enlarged. Left ventricular systolic function is mildly reduced, estimated at 45-50%. There is no increased left ventricular wall thickness. Left ventricular septal wall motion is normal. The left ventricular diastolic function is grade III diastolic dysfunction. Right Ventricle Right ventricular chamber dimension is normal. Right ventricular systolic function is normal. Left Atria Left atrial chamber dimension is moderately enlarged. Right Atria Right atrial chamber dimension is normal. Aortic Valve The aortic valve is trileaflet. There is mild aortic valve sclerosis. There is no aortic valve stenosis. There is no aortic valve regurgitation. Pulmonic Valve The pulmonic valve is normal. There is no pulmonic valve stenosis. There is no pulmonic regurgitation. Mitral Valve The mitral valve has normal leaflets. There is no mitral valve stenosis. There is trace mitral valve regurgitation. The mitral valve annulus is mildly calcified. Trace regurgitation. Tricuspid Valve The tricuspid valve leaflets are normal. There is no significant tricuspid valve stenosis. There is trace tricuspid valve regurgitation. No pulmonary hypertension, estimated pulmonary arterial systolic pressure is 30 mmHg. Difficult to visualize. Pericardium/Pleural The pericardium appears normal. There is no pericardial effusion. Inferior Vena Cava Dilated inferior vena cava with >50% collapse upon inspiration consistent with elevated right atrial pressure, 10 mmHg. Aorta The aortic root size at the sinus of Valsalva is normal. The prox ascending aorta size is normal. Left Ventricular Outflow Tract
[2021-11-12 08:39] LABS: Basophils Percent Auto 0.3 % (0.2-1.2); Eosinophils Absolute Auto 0.1 K/mm3 (0-0.3); Eosinophils Percent Auto 2.1 % (0-4.4); Hematocrit 26.1 % (42.0-52.0); Immature Granulocyte Absolute 0.03 K/mm3 (0.00-0.031); Immature Granulocyte Percent A 0.5 % (0-0.5); Lymphocytes Absolute Auto 0.68 K/mm3 (0.9-3.2); Lymphocytes Percent Auto 11.7 % (18.3-44.2); Mean Corpuscular HGB Conc 30.7 g/dl (32-36); Mean Corpuscular Hemoglobin 29.4 pg (26-34); Mean Platelet Volume 9.9 fl (7.4-10.4); Monocytes Absolute Auto 0.4 K/mm3 (0.1-0.6); Monocytes Percent Auto 6.4 % (2.6-8.5); Neutrophils Absolute Auto 4.6 K/mm3 (1.3-6.7); Platelet Count Result 146 k/mm3 (150-375); Red Blood Count 2.72 M/mm3 (4.6-6.20); Red Cell Distribution Width 15.9 % (11.5-14.5); White Blood Count 5.8 K/mm3 (4.5-10.0)
[2021-11-12 08:48] LABS: Alanine Aminotransferase 20 U/L (6-50); Albumin Level 3.8 g/dL (3.5-5.1); Alkaline Phosphatase 117 U/L (38-126); Anion Gap 5 mmol/L (8-16); Aspartate Amino Transferase 23 U/L (17-59); Bilirubin,Total 0.4 mg/dL (0.2-1.3); Blood Urea Nitrogen 57 mg/dL (9-20); Calcium 7.8 mg/dL (8.4-10.2); Carbon Dioxide 35 mmol/L (22-30); Chloride 96 mmol/L (98-107); Estimated CRCL calculation 30 ml/min; Estimated Glomerular Filt Rate 30; Glucose 96 mg/dL (65-110); Magnesium 2.3 mg/dL (1.6-2.3); Sodium 136 mmol/L (137-145)
[2021-11-12] MEDS: FUROSEMIDE INJ 40 MG/4 ML VIAL IV PUSH ×2 (09:38→17:35)
[2021-11-12 09:46] LABS: Base Excess ABG 5.8 mEq/l (+/-2.0); Fractional Inspired Oxygen 40 %; HCO3 ABG 31.2 mEq/l (22.0-26.0); PO2 ABG 49.7 mmHg (80.0-100.0); PO2 FiO2 Ratio Arterial Blood 1.24 %; Total Hemoglobin 9.3 g/dL (12.0-18.0); pH ABG 7.413 (7.350-7.450)
[2021-11-12 09:47] LABS: Oxygen Saturation ABG 85.1 % (95.0-100.0); Oxyhemoglobin 83.8 % THb (90.0-100.0)
[2021-11-12 09:48] LABS: Device BIPAP; Modified Allen's Test Pass; Site Drawn RIGHT RADIAL
[2021-11-12 09:49] LABS: Expiratory Pressure 6 cmH2O; Inspiratory Pressure 14 cmH2O
--- NOTE | 2021-11-12 10:32 | PM.IMPN ---
Progress Note: A&P Assessment and Plan (1) Acute respiratory failure with hypoxia and hypercapnia: Code(s): J96.01 - Acute respiratory failure with hypoxia; J96.02 - Acute respiratory failure with hypercapnia Status: Acute (2) Atrial fibrillation with slow ventricular response: Code(s): I48.91 - Unspecified atrial fibrillation Status: Acute (3) Congestive heart failure: Qualifiers: Heart failure chronicity: acute on chronic Heart failure type: diastolic Qualified Code(s): I50.33 - Acute on chronic diastolic (congestive) heart failure Code(s): I50.9 - Heart failure, unspecified Status: Chronic (4) Chronic kidney disease, stage 3: Code(s): N18.3 - Chronic kidney disease, stage 3 (moderate) Status: Chronic (5) GERD (gastroesophageal reflux disease): Code(s): K21.9 - Gastro-esophageal reflux disease without esophagitis Status: Acute (6) Lung infiltrate: Code(s): R91.8 - Other nonspecific abnormal finding of lung field Status: Acute Plan Acute on chronic hypercapnic respiratory failure ABG reviewed. Started on BiPAP. Chest x-ray with pulmonary edema. Diuresis as ordered. With his renal function might need to increase the day diuresis if not adequate diuresis achieved. Cardiology has been consulted. Will repeat ABG this morning and take off BiPAP if improved. Today acidosis was noted in the ABG yesterday. He was recently been to [facility] and was started on oxygen since then. Acute pulmonary edema/acute on chronic diastolic congestive heart failure. Diurese order cardiology consultation BNP elevated. EF 60% 2020 Atrial fibrillation chronic rate controlled continue home medication Acute on chronic renal failure this stage III baseline creatinine 1.7 currently of 2.1 continue to monitor with diuresis. Mascorro in place Hypertension Hyperlipidemia Obesity History of GI bleed Peripheral vascular disease with left carotid artery stent placement Anxiety depression Diabetes mellitus type 2 medications unknown A1c COVID infection August 17 Stasis dermatitis, history of cellulitis in bilateral legs past Chronic anemia no active GI bleed currently History of bladder cancer DVT prophylaxis on Eliquis which will be continued Code status full code [facility] resident Subjective Date/time seen: 11/12/21 10:32 Interval history: HPI:This is an 86-year-old male with past medical history significant for atrial fibrillation, chronic kidney disease, congestive heart failure, degenerative joint disease, depression.? Patient presents to the emergency room due to shortness of breath and low pulse ox at home into the 80's range.? Patient had similar admission to the [facility] where he was diuresed and sent home on supplemental oxygen 2-4 L by nasal cannula.? History taking is limited due to the use of BiPAP at the time of my visit.? Most of the history has been obtained no prone reviewing medical records.? Preliminary workup was significant for blood gas with a pH of 7.2 pCO2 of 75 PO261, hemoglobin of 8, BUN 60 creatinine 2.1 a chest x-ray was significant for opacities.? Patient is been admitted for further evaluation management and treatment. 11/12/2021 more awake and alert. Conversing okay. Able to reiterate the history of present illness. Reported shortness of breath and worsening oxygen saturation in the nursing facility. He had lowered his oxygen down to 2 L from 6 L from his discharge. Reviewed H&P and discharge summary is from his recent admissions at [facility]. Review of Systems Review of Systems: All systems reviewed & are unremarkable except as noted in HPI and below Exam Narrative: GENERAL: The patient is well developed, not in acute distress currently on BiPAP HEENT: Nonicteric sclerae, PERRLA, EOMI. Oropharynx clear. Moist mucous membranes. Conjunctivae appear well perfused. CHEST: Chest wall is nont
[2021-11-12] MEDS: rOPINIRole HCL 1 MG TABLET 2 MG PO ×4 (11:40→21:29)
[2021-11-12] MEDS: DULoxetine HCL 30 MG CAPSULE.DR PO (11:42)
[2021-11-12] MEDS: FINASTERIDE 5 MG TABLET PO (11:42)
[2021-11-12] MEDS: LORazepam (*CRX) 0.5 MG TABLET PO ×3 (11:42→17:36)
[2021-11-12] MEDS: GABAPENTIN 300 MG CAPSULE PO ×3 (11:42→17:35)
[2021-11-12] MEDS: LORATADINE 10 MG TABLET PO (11:43)
[2021-11-12] MEDS: APIXABAN 2.5 MG TABLET PO ×2 (11:43→21:37)
[2021-11-12] MEDS: amLODIPine BESYLATE 5 MG TABLET 10 MG PO (11:43)
--- NOTE | 2021-11-12 12:45 | PM.CNCAR ---
Assessment and Plan Assessment and plan (1) Hypoxia: Code(s): R09.02 - Hypoxemia Status: Acute (2) Atrial fibrillation with slow ventricular response: Code(s): I48.91 - Unspecified atrial fibrillation Status: Acute Plan This is an 86-year-old man with chronic atrial flutter and a history of diastolic dysfunction presumably because he has had a number of admissions with heart failure with preserved ejection fraction. He is stable regarding his cardiac rhythm. Despite modest if any evidence of volume overload by clinical exam he is requiring higher FiO2 and I would agree with the plans to diurese him with intravenous furosemide. His dosage has been increased significantly by his physician who sees him at the skilled nursing as I mentioned in my note above. A new echocardiogram has been requested by the hospitalist that has yet to be performed. We will follow him with you at this time there is nothing else to suggest cardiac sun unless his echocardiogram suggests new pathology. I found it interesting that the H and P in the chart indicates the patient's wish not to be resuscitated but he is still full code status according to the orders that are on the chart. Will follow with you while he is in the hospital. Parish Helms MD [facility] History of Present Illness History of Present Illness Consult date/time: 11/12/21 12:45 Consult reason: shortness of breath Reason For Visit: Pulmonary Edema Narrative: This is an 86-year-old man I am seeing at the request of the hospitalist today because of the clinical diagnosis of congestive heart failure. I have never personally seen this gentleman in the past but several years ago he has seen physicians in our practice when he was in the hospital with similar problems. He was offered outpatient follow-up appointment which he failed. He apparently has a history of chronic atrial flutter and we have seen him in the past because of concerns regarding tachy-almita concerns and there was discussion several years ago as to whether or not a pacemaker should be implanted. This was ultimately felt not to be necessary as he was not having any symptomatic Almita arrhythmias. He had normal left ventricular systolic function at that time. Looks like he was recently hospitalized at [facility] a couple of months ago with symptoms of shortness of breath once again he was felt to have some heart failure with preserved ejection fraction. Complicating all this he is significantly anemic with a hemoglobin that tends to run in the region of 7-8 g. He is a resident of a local skilled nursing he states that there was concern about his condition when over the last couple of days they event increase his FiO2. Apparently after his recent discharge he has been on 2 L of nasal cannula oxygen. This was increased to 4 L and he was still at times hypoxemic with oxygen saturations below 90 and so yesterday he was brought back to the hospital here. His chest x-ray shows cardiomegaly and small bilateral pleural effusions. He does have some chronic lower extremity edema that he does not take is any worse than his baseline. He was hopeful that he will be able to avoid being hospitalized again by simply increasing his FiO2. He is not having any chest pain pressure or heaviness. Because of his atrial flutter he is systemically anticoagulated with apixaban. His recent discharge summary from [facility] indicated his furosemide dosage at discharge was 40 mg daily. Apparently that has been increased significantly because the chart indicates his current outpatient dosages 80 mg b.i.d.. He does report some continuous conversational shortness of breath and the complaining of nasal congestion he also complained for a long time about trouble he has with constipation that is been attributed to his narcotic analgesics treatment he takes this because of pain in his right arm. Review of Systems Constitutional: Constitutional: Reports fatigue a
[2021-11-12] MEDS: PERFLUTREN LIPID MICROSPHERES 1.5 ML VIAL DILUTED TO 10 ML TOTAL VOLUME IV PUSH (13:21)
--- NOTE | 2021-11-12 13:21 | IVDEFINITY ---
Prior to administration of IV Definity the patient was educated on the risks and benefits of the imaging enhancing agent including potential adverse side effects. The patient verbalized understanding. Allergies were verified. No exclusion criteria were identified and at least one of the following inclusion criteria were met: 1) physician request, 2) patient technically difficult to image (per the [place] [employer] guidelines of two or more segments not discernable within the apical view), or 3) questionable left ventricular function. ?
[2021-11-12 13:52] LABS: Alveolar/Arterial O2 Gradient 232.1 mmHg; Base Excess ABG 3.1 mEq/l (+/-2.0); Fractional Inspired Oxygen 52 %; HCO3 ABG 31.1 mEq/l (22.0-26.0); Oxygen Content ABG 12.7 %vol (16.0-22.0); Oxygen Saturation ABG 88.3 % (95.0-100.0); PO2 ABG 62.7 mmHg (80.0-100.0); PO2 FiO2 Ratio Arterial Blood 1.21 %; Total Hemoglobin 10.2 g/dL (12.0-18.0)
[2021-11-12 13:54] LABS: Device HIGH FLOW NASAL CANN; Modified Allen's Test Pass; PCO2 ABG 67.8 mmHg (35.0-45.0); Site Drawn RIGHT RADIAL
[2021-11-12] MEDS: traMADol HCL (*CRX) 50 MG TABLET PO (14:06)
[2021-11-12] MEDS: ATORVASTATIN 20 MG TABLET PO (21:29)
[2021-11-12] MEDS: OXYMETAZOLINE HCL 0.05% NAS 15 ML BTL (*BKC) 1 SPRAY NASAL (21:32)
[2021-11-13] VITALS (23 sets, daily range): BP systolic 103–149; BP diastolic 38–73; PULSE 40–82; RESP 20–36; TEMP 36.3–37.4; O2SAT 89–100
[2021-11-13 08:10] LABS: Hematocrit 28.7 % (42.0-52.0); Hemoglobin 8.8 g/dL (14.0-18.0); Mean Corpuscular HGB Conc 30.7 g/dl (32-36); Mean Corpuscular Hemoglobin 29.6 pg (26-34); Mean Corpuscular Volume 96.6 fl (80-100); Mean Platelet Volume 9.8 fl (7.4-10.4); Platelet Count Result 162 k/mm3 (150-375); Red Blood Count 2.97 M/mm3 (4.6-6.20); Red Cell Distribution Width 16.2 % (11.5-14.5); White Blood Count 8.4 K/mm3 (4.5-10.0)
[2021-11-13 08:18] LABS: Alveolar/Arterial O2 Gradient 163.4 mmHg; Base Excess ABG 1.9 mEq/l (+/-2.0); Fractional Inspired Oxygen 35 %; HCO3 ABG 26.9 mEq/l (22.0-26.0); PCO2 ABG 44.3 mmHg (35.0-45.0); PO2 FiO2 Ratio Arterial Blood 0.99 %; Total Hemoglobin 9.6 g/dL (12.0-18.0); pH ABG 7.402 (7.350-7.450)
[2021-11-13 08:20] LABS: PO2 ABG 34.7 mmHg (80.0-100.0)
[2021-11-13 08:21] LABS: Oxygen Saturation ABG 66.4 % (95.0-100.0); Oxyhemoglobin 66.3 % THb (90.0-100.0); Site Drawn RIGHT RADIAL
[2021-11-13 08:22] LABS: Modified Allen's Test Pass; Non-Invasive Expiratory Pressure 6 CMH2O; Non-Invasive Inspiratory Pressure 14 CMH2O; Non-Invasive Vent Rate 20 /MIN
[2021-11-13 08:23] LABS: Device NON-INVASIVE VENT
[2021-11-13 08:23] LABS: Anion Gap 10 mmol/L (8-16); Blood Urea Nitrogen 59 mg/dL (9-20); Calcium 8.2 mg/dL (8.4-10.2); Carbon Dioxide 30 mmol/L (22-30); Chloride 96 mmol/L (98-107); Estimated CRCL calculation 32 ml/min; Estimated Glomerular Filt Rate 32; Glucose 109 mg/dL (65-110); Magnesium 2.3 mg/dL (1.6-2.3); Potassium 4.6 mmol/L (3.4-5.0); Sodium 136 mmol/L (137-145)
[2021-11-13] MEDS: HALOPERIDOL LACTATE 5 MG/ML VIAL 2.5 MG IM (08:25)
[2021-11-13] MEDS: FUROSEMIDE INJ 40 MG/4 ML VIAL IV PUSH ×2 (10:13→16:51)
[2021-11-13] MEDS: rOPINIRole HCL 1 MG TABLET 2 MG PO ×3 (10:14→20:45)
[2021-11-13] MEDS: FINASTERIDE 5 MG TABLET PO (10:15)
[2021-11-13] MEDS: DULoxetine HCL 30 MG CAPSULE.DR PO (10:15)
[2021-11-13] MEDS: LORazepam (*CRX) 0.5 MG TABLET PO ×3 (10:15→20:46)
[2021-11-13] MEDS: GABAPENTIN 300 MG CAPSULE PO ×2 (10:15→14:03)
[2021-11-13] MEDS: LORATADINE 10 MG TABLET PO (10:15)
[2021-11-13] MEDS: APIXABAN 2.5 MG TABLET PO ×2 (10:15→20:47)
[2021-11-13] MEDS: amLODIPine BESYLATE 5 MG TABLET 10 MG PO (10:15)
--- NOTE | 2021-11-13 10:17 | PM.PNCARD ---
Progress Note: A&P Assessment and Plan (1) Congestive heart failure: Qualifiers: Heart failure chronicity: acute on chronic Heart failure type: diastolic Qualified Code(s): I50.33 - Acute on chronic diastolic (congestive) heart failure Code(s): I50.9 - Heart failure, unspecified Status: Chronic Assessment and Plan: Known diastolic heart failure with recent increase in diuretics as an outpatient. Being diuresed with IV furosemide, perhaps shift back to p.o. furosemide tomorrow. Repeat echocardiogram has been taken, results are pending. No additional cardiac recommendations to make at this time. (2) Atrial fibrillation with slow ventricular response: Code(s): I48.91 - Unspecified atrial fibrillation Status: Acute Assessment and Plan: Chronic atrial flutter. Rate controlled with no AV tracy blocking agents. He is anticoagulated with apixaban Subjective Date/time seen: 11/13/21 10:17 Cardiology follow up for CHF Per nursing report was agitated and combative earlier. Somnolent at the time of my visit. Remains on BiPAP. Review of Systems Constitutional: Constitutional: Reports fatigue and Reports lethargy Eyes: Eyes: Reports no additional eye complaints ENT: Reports nasal discharge Cardiovascular: Cardiovascular: Reports leg edema and Reports dyspnea Respiratory: Respiratory: Reports dyspnea Gastrointestinal: Gastrointestinal: Reports no additional gastrointestinal complaints Integumentary/Breasts: Skin/Breast: Reports system reviewed and no additional complaints, except as docu Neurologic: Reports system reviewed and no additional complaints, except as documented Endocrine: Endocrine: Reports no additional endocrine complaints and Reports fatigue Hematologic/Lymphatic: Hematologic/Lymphatic: Reports no additional hematologic/lymphatic complaints Allergic/Immunologic: Allergic/Immunologic: Reports no additional allergic/immunologic complaints Exam Const: General: comfortable and no acute distress Other: BiPAP in place HENMT: Mouth: Yes moist mucous membranes Eyes: Sclera: sclerae normal Pupils: Equal, round and reactive pupils present Neck: Neck: supple and no JVD Resp: Auscultation: clear to auscultation bilaterally Cardio: Rate: regular rate Rhythm: abnormal rhythm GI: Auscultation: normal bowel sounds Urinary Catheter: Urinary Catheter: patent and draining Skin: General skin exam: normal color Neuro: Cranial nerves: Yes Equal, round and reactive pupils present Extrem: Other: Mild non-pitting bilateral LE edema. Objective Data Vital Signs Vital Signs: Vital Signs - 24 hr 11/12/21 12:00 11/12/21 12:00 11/12/21 12:00 Temperature 36.4 C L Pulse Rate 79 84 Respiratory Rate 24 H Blood Pressure 148/69 H Pulse Oximetry 92 90 Oxygen Delivery Nasal Cannula Oxygen Flow Rate 6 Fraction of Inspired Oxygen 11/12/21 14:00 11/12/21 16:00 11/12/21 16:00 Temperature 36.2 C L Pulse Rate 78 94 Respiratory Rate 20 Blood Pressure 136/72 Pulse Oximetry 94 92 Oxygen Delivery Nasal Cannula Oxygen Flow Rate 6 Fraction of Inspired Oxygen 11/12/21 16:00 11/12/21 18:00 11/12/21 19:34 Temperature 36.7 C Pulse Rate 79 79 58 L Respiratory Rate 20 Blood Pressure 126/47 L Pulse Oximetry 95 Oxygen Delivery Oxygen Flow Rate Fraction of Inspired Oxygen 11/12/21 21:05 11/12/21 20:00 11/12/21 22:00 Temperature Pulse Rate 79 79 79 Respiratory Rate 20 Blood Pressure Pulse Oximetry 99 Oxygen Delivery BiPAP Oxygen Flow Rate Fraction of Inspired Oxygen 11/12/21 21:25 11/12/21 22:43 11/13/21 00:00 Temperature 36.7 C Pulse Rate 79 Respiratory Rate 20 Blood Pressure 139/60 Pulse Oximetry 99 97 94 Oxygen Delivery BiPAP BiPAP Oxygen Flow Rate Fraction of Inspired Oxygen 35 35 11/13/21 00:00 11/13/21 01:59 11/13/21 03:22 Temperature 36.5 C
[2021-11-13] MEDS: LORazepam INJ (*CRX) 2 MG/ML VIAL 1 MG IV PUSH (10:28)
--- NOTE | 2021-11-13 11:28 | PM.IMPN ---
Progress Note: A&P Assessment and Plan (1) Acute respiratory failure with hypoxia and hypercapnia: Code(s): J96.01 - Acute respiratory failure with hypoxia; J96.02 - Acute respiratory failure with hypercapnia Status: Acute (2) Atrial fibrillation with slow ventricular response: Code(s): I48.91 - Unspecified atrial fibrillation Status: Acute (3) Congestive heart failure: Qualifiers: Heart failure chronicity: acute on chronic Heart failure type: diastolic Qualified Code(s): I50.33 - Acute on chronic diastolic (congestive) heart failure Code(s): I50.9 - Heart failure, unspecified Status: Chronic (4) Chronic kidney disease, stage 3: Code(s): N18.3 - Chronic kidney disease, stage 3 (moderate) Status: Chronic (5) GERD (gastroesophageal reflux disease): Code(s): K21.9 - Gastro-esophageal reflux disease without esophagitis Status: Acute (6) Lung infiltrate: Code(s): R91.8 - Other nonspecific abnormal finding of lung field Status: Acute Plan # Acute on chronic hypercapnic respiratory failure ABG reviewed. Started on BiPAP. Chest x-ray with pulmonary edema. Diuresis as ordered. With his renal function might need to increase the day diuresis if not adequate diuresis achieved. Cardiology has been consulted. Repeat ABG improved and by post taken off. Subsequent ABG was worsen hence placed on BiPAP again. ABG this morning 11/13/2021 with likely a venous staff. PH at normal level. Continue BiPAP as needed Continue diuresis. Renal function remains stable while on diuresis. Cardiology following. Repeat chest x-ray today and in the morning. # Acute pulmonary edema/acute on chronic diastolic congestive heart failure. Diurese order cardiology consultation BNP elevated. EF 60% 2019 repeat echo is pending currently # Atrial fibrillation chronic rate controlled continue home medication # Acute on chronic renal failure this stage III baseline creatinine 1.7 currently of 2.1 continue to monitor with diuresis. Mascorro in place # Hypertension # Hyperlipidemia # Obesity # History of GI bleed # Peripheral vascular disease with left carotid artery stent placement # Anxiety depression # Diabetes mellitus type 2 medications unknown A1c # COVID infection August 17 # Stasis dermatitis, history of cellulitis in bilateral legs past # Chronic anemia no active GI bleed currently # History of bladder cancer # DVT prophylaxis on Eliquis which will be continued # Code status full code has expressed that he did wanted to be resuscitated in the past. Not able to get the conversation again. # [facility] resident Subjective Date/time seen: 11/13/21 11:28 Interval history: HPI:This is an 86-year-old male with past medical history significant for atrial fibrillation, chronic kidney disease, congestive heart failure, degenerative joint disease, depression.? Patient presents to the emergency room due to shortness of breath and low pulse ox at home into the 80's range.? Patient had similar admission to the [facility] where he was diuresed and sent home on supplemental oxygen 2-4 L by nasal cannula.? History taking is limited due to the use of BiPAP at the time of my visit.? Most of the history has been obtained no prone reviewing medical records.? Preliminary workup was significant for blood gas with a pH of 7.2 pCO2 of 75 PO261, hemoglobin of 8, BUN 60 creatinine 2.1 a chest x-ray was significant for opacities.? Patient is been admitted for further evaluation management and treatment. 11/12/2021 more awake and alert. Conversing okay. Able to reiterate the history of present illness. Reported shortness of breath and worsening oxygen saturation in the nursing facility. He had lowered his oxygen down to 2 L from 6 L from his discharge. Reviewed H&P and discharge summary is from his recent admissions at [facility]. 11/13/2021 patient was agitated and un
[2021-11-13 14:56] LABS: SARS-CoV-2 RNA PCR Negative
[2021-11-13] MEDS: ATORVASTATIN 20 MG TABLET PO (20:46)
[2021-11-13] MEDS: traMADol HCL (*CRX) 50 MG TABLET PO (20:46)
[2021-11-14] VITALS (20 sets, daily range): BP systolic 116–140; BP diastolic 40–86; PULSE 39–98; RESP 18–27; TEMP 36.2–36.7; O2SAT 92–100
--- NOTE | 2021-11-14 00:27 | PC.NURSE ---
patient is on a continuous bipap. patient o2 sat drops to 60/70's when he removes his bipap. patient is continually tearing the bipap off his face and throwing it across the room. he stated several times that he wants to , he is refusing to wear bipap.
[2021-11-14 05:13] LABS: Basophils Percent Auto 0.3 % (0.2-1.2); Eosinophils Absolute Auto 0.1 K/mm3 (0-0.3); Eosinophils Percent Auto 0.7 % (0-4.4); Hematocrit 29.1 % (42.0-52.0); Hemoglobin 8.7 g/dL (14.0-18.0); Immature Granulocyte Absolute 0.03 K/mm3 (0.00-0.031); Immature Granulocyte Percent A 0.3 % (0-0.5); Lymphocytes Absolute Auto 0.92 K/mm3 (0.9-3.2); Lymphocytes Percent Auto 10.5 % (18.3-44.2); Mean Corpuscular HGB Conc 29.9 g/dl (32-36); Mean Corpuscular Hemoglobin 29.3 pg (26-34); Mean Platelet Volume 9.6 fl (7.4-10.4); Monocytes Absolute Auto 0.6 K/mm3 (0.1-0.6); Monocytes Percent Auto 6.6 % (2.6-8.5); Neutrophils Absolute Auto 7.1 K/mm3 (1.3-6.7); Neutrophils Percent Auto 81.6 % (45.5-73.1); Platelet Count Result 139 k/mm3 (150-375); Red Blood Count 2.97 M/mm3 (4.6-6.20); Red Cell Distribution Width 16.1 % (11.5-14.5); White Blood Count 8.7 K/mm3 (4.5-10.0)
[2021-11-14 05:34] LABS: Alanine Aminotransferase 19 U/L (6-50); Albumin Level 3.9 g/dL (3.5-5.1); Alkaline Phosphatase 125 U/L (38-126); Anion Gap 11 mmol/L (8-16); Aspartate Amino Transferase 28 U/L (17-59); Blood Urea Nitrogen 63 mg/dL (9-20); Calcium 8.4 mg/dL (8.4-10.2); Carbon Dioxide 31 mmol/L (22-30); Chloride 95 mmol/L (98-107); Estimated CRCL calculation 27 ml/min; Estimated Glomerular Filt Rate 26; Glucose 120 mg/dL (65-110); Potassium 4.2 mmol/L (3.4-5.0); Sodium 137 mmol/L (137-145)
[2021-11-14 06:05] LABS: Platelet Estimate Adequate (Adequate)
[2021-11-14 06:06] LABS: Hypochromasia 2+ (NORMAL)
[2021-11-14 07:54] LABS: Base Excess ABG 5.8 mEq/l (+/-2.0); Fractional Inspired Oxygen 40 %; HCO3 ABG 31.3 mEq/l (22.0-26.0); Oxygen Content ABG 12.8 %vol (16.0-22.0); Oxygen Saturation ABG 94.2 % (95.0-100.0); Oxyhemoglobin 91.7 % THb (90.0-100.0); PCO2 ABG 50.6 mmHg (35.0-45.0); PO2 FiO2 Ratio Arterial Blood 1.77 %; Total Hemoglobin 9.9 g/dL (12.0-18.0); pH ABG 7.409 (7.350-7.450)
[2021-11-14 07:56] LABS: Device NON-INVASIVE VENT; Modified Allen's Test Pass; Non-Invasive Expiratory Pressure 6 CMH2O; Non-Invasive Inspiratory Pressure 14 CMH2O; Non-Invasive Vent Rate 20 /MIN; Site Drawn RIGHT RADIAL
[2021-11-14] MEDS: LORazepam (*CRX) 0.5 MG TABLET PO ×2 (08:47→16:56)
[2021-11-14] MEDS: rOPINIRole HCL 1 MG TABLET 2 MG PO ×3 (08:47→20:09)
[2021-11-14] MEDS: amLODIPine BESYLATE 5 MG TABLET 10 MG PO (08:48)
[2021-11-14] MEDS: APIXABAN 2.5 MG TABLET PO ×2 (08:48→20:09)
[2021-11-14] MEDS: DULoxetine HCL 30 MG CAPSULE.DR PO (08:48)
[2021-11-14] MEDS: FINASTERIDE 5 MG TABLET PO (08:48)
[2021-11-14] MEDS: GABAPENTIN 300 MG CAPSULE PO ×2 (08:48→16:56)
[2021-11-14] MEDS: FUROSEMIDE INJ 40 MG/4 ML VIAL IV PUSH ×2 (08:48→16:57)
[2021-11-14] MEDS: LORATADINE 10 MG TABLET PO (08:52)
--- NOTE | 2021-11-14 10:21 | PM.IMPN ---
Progress Note: A&P Assessment and Plan (1) Acute respiratory failure with hypoxia and hypercapnia: Code(s): J96.01 - Acute respiratory failure with hypoxia; J96.02 - Acute respiratory failure with hypercapnia Status: Acute Assessment and Plan: 11/14: ABG showed some hypercapnia with hypoxic respiratory failure, thought to be secondary to diastolic heart failure, repeat echo did show systolic heart failure as well, patient still requiring BiPAP for respiratory support, will attempt to wean as patient diuresis. No known history of COPD-- he is a former smoker, quit in 1978, no history of sleep apnea, will check [employer] tonight. Chest x-ray from today showed possible right lung collapse, will check CT chest. Consult pulmonology. (2) Atrial fibrillation with slow ventricular response: Code(s): I48.91 - Unspecified atrial fibrillation Status: Acute Assessment and Plan: 11/14: Continue Eliquis, stable and rate controlled, in chronic atrial flutter requiring no AV node blockade (3) Congestive heart failure: Qualifiers: Heart failure chronicity: acute on chronic Heart failure type: diastolic Qualified Code(s): I50.33 - Acute on chronic diastolic (congestive) heart failure Code(s): I50.9 - Heart failure, unspecified Status: Chronic Assessment and Plan: 11/14: Echo from November 12, 2021 showed an EF of 45-50% with grade 2-3 diastolic dysfunction, no pulmonary hypertension noted, no significant valvular disease noted, no pericardial effusion seen, appreciate cardiology consultation, continue diuresis per the recommendations, anticipating shifting back to oral Lasix today per their note from yesterday, recommendations for today pending (4) Chronic kidney disease, stage 3: Code(s): N18.3 - Chronic kidney disease, stage 3 (moderate) Status: Chronic Assessment and Plan: 11/14: Acute on chronic kidney disease, creatinine worsening at 2.4 today with diuresis, baseline around 1.7, will continue to monitor, anticipate this will improve the patient is switched back to oral diuresis. Due to significant anemia as well as worsening creatinine, will consult Nephrology for further management recommendations and outpatient follow-up. (5) GERD (gastroesophageal reflux disease): Code(s): K21.9 - Gastro-esophageal reflux disease without esophagitis Status: Acute Assessment and Plan: 11/14: Stable, on no meds at this time (6) Lung infiltrate: Code(s): R91.8 - Other nonspecific abnormal finding of lung field Status: Acute (7) Diabetes: Code(s): E11.9 - Type 2 diabetes mellitus without complications Status: Chronic Assessment and Plan: 11/14: Check A1c, glucose well controlled here, consistently under 180 with no interventions (8) Hyperlipidemia: Code(s): E78.5 - Hyperlipidemia, unspecified Status: Chronic Assessment and Plan: 11/14: currently on Lipitor (9) Hypertension: Qualifiers: Hypertension type: essential hypertension Qualified Code(s): I10 - Essential (primary) hypertension Code(s): I10 - Essential (primary) hypertension Status: Chronic Assessment and Plan: stable (10) Anxiety: Code(s): F41.9 - Anxiety disorder, unspecified Status: Chronic Assessment and Plan: stable on home medication, continue Ativan, Cymbalta Plan Comorbidities: 1. Obesity BMI 38 2. Chronic venous stasis dermatitis, bilateral lower extremities Code status full code from a nursing facility DVT prophylaxis with Eliquis, monitor hemoglobin closely due to history of GI bleed Subjective Date/time seen: 11/14/21 10:21 Interval history: 11/14: Patient resting comfortably on high-flow nasal cannula without any complaints.? Nursing staff reports agitation and confusion overnight, all resolved for day shift. No chest pain or shortness of breath.? No nausea, vomiting or
[2021-11-14 11:08] LABS: Hemoglobin A1C 5.6 % (<5.7)
--- NOTE | 2021-11-14 12:15 | PM.CNPUL ---
Assessment and Plan Assessment and plan (1) Lung infiltrate: Code(s): R91.8 - Other nonspecific abnormal finding of lung field Status: Acute Assessment and Plan: Patient with a chest x-ray demonstrating cardiomegaly, small left pleural effusion, vascular congestion which overall has improved since 11/13/2021. There is concern for possible right lower lobe collapse and the patient is scheduled to get a CT scan. Further recommendations following CT scan. Patient has no leukocytosis, is afebrile and was started on Zosyn for possible pneumonia on 11/13. No blood cultures were sent. The infiltrates on his chest x-ray have improved over the last 18 hours and I doubt that this these infiltrates represented pneumonic process. This is more likely fluid. Will check a BNP in the morning. At this time I would continue the Zosyn and follow him clinically. Regarding his hypercarbic and hypoxic respiratory failure. The etiologies include fluid overload, and I doubt he has a significant component of COPD although he would need outpatient PFTs to assess this. He does have morbid obesity with a BMI of 38.3. He may have obesity hypoventilation syndrome. Once he is clinically improved will check a daytime ABG to assess for chronic hypercarbic respiratory failure indicative of obesity hypoventilation syndrome He may also have obstructive sleep apnea and will need an outpatient polysomnogram to determine this. TSH on 04/15/2020 was 1.98 and I will repeat thyroid studies tomorrow. he is tolerating his current BiPAP settings of rate of 20, 14/6, inspiratory time 0.9, rise of 2 and 40% well with a blood gas of 7.41/51/71, will continue these settings p.r.n. for now. He does have a tobacco history but has never been on inhalers and he has no wheezing at this time. I do not feel a need for bronchodilators, inhaled steroids or systemic steroids at this point. Of note if he does have lobar collapse it likely represents mucus plugging and at that point he may benefit from bronchodilators. Will follow with you. History of Present Illness History of Present Illness Consult date: 11/14/21 Chief complaint: Pulmonary Edema Narrative: 11/14/2021: This is a new pulmonary consult for right lower lobe lung collapse. 86-year-old with atrial flutter on anticoagulation, CKD, diastolic congestive heart failure, Chronic hypoxemic respiratory failure on 2-4 L nasal cannula at home who presented to the emergency room on 11/11 with shortness of breath and hypoxemia from alf. is white blood call count was 6.9, hemoglobin 8.3, blood gas was 7.25/76/ 61 on 8 L nasal cannula. patient was treated with BiPAP. His creatinine was 2.10 his BNP was 4660 (was 6790 on 04/14/2020), CXR with congestion, left pleural effusion, and treated for fluid overload with IV Lasix. Chest x-ray worsened with diffuse opacities in all lung zones small pleural effusion and Zosyn was started on 11/13. chest x-ray on 11/14/2021 demonstrated improvement in the [place] throughout much of the right lung but with more dense opacities in the medial right mid and lower lung suggesting possible right lower lung collapse. Small to moderate left pleural effusion. I was consulted. Patient is currently on the BiPAP and when I talked to the nurse he had been off the BiPAP on 10 L nasal cannula early this morning he ate breakfast was alert and oriented x4. He states the BiPAP helps him breathe because he can't lie flat and breathe. When he sits in a chair E feels he is breathing normally. White blood cell count is 8.7. The patient tells me he has never been told he has asthma, COPD or interstitial lung disease. The patient tells me he has never been tested for obstructive sleep apnea and never been told he has obstructive sleep apnea. The patient is on no inhalers at the alf. The patient tells me he smoked tobacco from [id number] at 1 pack per day for a total o
--- NOTE | 2021-11-14 16:44 | PC.NURSE ---
Notified Dr. Altamirano and Dr. Diez that patient had a 26 beat run of VTACH. Patient is not symptomatic. Denies chest pain, dizziness, SOB, Chest pressure. Labs to be drawn stat.
[2021-11-14] MEDS: ACETAMINOPHEN 325 MG TABLET 650 MG PO (16:55)
[2021-11-14 17:26] LABS: Anion Gap 9 mmol/L (8-16); Blood Urea Nitrogen 66 mg/dL (9-20); Calcium 8.3 mg/dL (8.4-10.2); Carbon Dioxide 32 mmol/L (22-30); Chloride 95 mmol/L (98-107); Estimated CRCL calculation 29 ml/min; Estimated Glomerular Filt Rate 28; Glucose 127 mg/dL (65-110); Magnesium 2.3 mg/dL (1.6-2.3); Phosphorus 5.6 mg/dL (2.5-4.5); Potassium 4.1 mmol/L (3.4-5.0); Sodium 136 mmol/L (137-145)
--- NOTE | 2021-11-14 17:48 | PC.NURSE ---
Put transfer orders med surge in on this patient by mistake. transfered patient back to IMU.
--- NOTE | 2021-11-14 18:17 | PM.PNCARD ---
Progress Note: A&P Assessment and Plan (1) Acute on chronic combined systolic and diastolic CHF (congestive heart failure): Code(s): I50.43 - Acute on chronic combined systolic (congestive) and diastolic (congestive) heart failure Status: Acute Assessment and Plan: Known diastolic heart failure with recent increase in diuretics as an outpatient. Slow improvement clinically, off BiPAP 5 present. Echo EF 40-45% with hypokinesis to akinesis of the mid and basal inferoseptal segments. Diastolic dysfunction. Chest x-ray and CT scan shows ongoing CHF and small to moderate-sized effusions Continue diuresis with IV furosemide; permissive azotemia. Daily BMP Up to chair tomorrow? (2) Atrial fibrillation with slow ventricular response: Code(s): I48.91 - Unspecified atrial fibrillation Status: Acute Assessment and Plan: Chronic atrial flutter. Rate controlled with no AV tracy blocking agents. Tends to be bradycardic. He is anticoagulated with apixaban (3) Nonsustained ventricular tachycardia: Code(s): I47.2 - Ventricular tachycardia Status: Acute Assessment and Plan: Nonsustained ventricular tachycardia noted this afternoon, asymptomatic. Potassium and magnesium were normal Unfortunately we cannot use beta-blockers on this patient due to his bradycardia (4) Chronic kidney disease, stage 3: Code(s): N18.3 - Chronic kidney disease, stage 3 (moderate) Status: Chronic Assessment and Plan: BUN rising, creat up a little. Permissive azotemia Daily BMP Subjective Date/time seen: 11/13/21? 10:17 Cardiology follow up for CHF. Per nursing report was agitated and combative earlier.? Somnolent at the time of my visit.? Remains on BiPAP.?Cont IV Lasix. Date of Service: 11/14/21 18:17: On BiPAP for most today 10 L. thinks he would be better off if he could set. Seen by Pulmonary. 1600 cc out yesterday. BUN rising, creatinine up a little. Had a 26 beat run of ventricular tachycardia today, asymptomatic. Otherwise telemetry shows AFib with heart rates in the 40s and 50s, sometimes 30s. Review of Systems Constitutional: Constitutional: Denies fever(s) Cardiovascular: Cardiovascular: Denies chest pain, Denies pedal edema, Denies lightheadedness and Denies dyspnea Respiratory: Respiratory: Denies chest congestion and Denies dyspnea Gastrointestinal: Gastrointestinal: Denies abdominal pain and Denies hematochezia Musculoskeletal: Musculoskeletal: Reports back pain (From being in bed so much) Integumentary/Breasts: Skin/Breast: Reports system reviewed and no additional complaints, except as docu Neurologic: Reports system reviewed and no additional complaints, except as documented, Denies behavioral changes and Denies confusion Psychiatric: Psychiatric: Denies behavioral changes and Denies confusion Exam Const: General: no acute distress, confusion (Perhaps mildly confused) and uncomfortable (Back is bothering him) Orientation/consciousness: oriented to person, patient oriented x3 and No confusion Eyes: EOM: EOMs intact bilaterally Resp: Effort & Inspection: abnormal respiratory effort (Mildly tachypneic in using some accessory muscles of respiration) Auscultation: clear to auscultation bilaterally and diminished lung sounds Cardio: Rate: regular rate and bradycardic Rhythm: regular rhythm and abnormal rhythm irregularly irregular GI: Inspection: normal to inspection GI Palp: No abdominal tenderness Skin: General skin exam: no rashes or lesions noted Neuro: General: oriented to person and confusion (Mildly confused) Extrem: Right lower extremity: edema (Mild lower extremity edema) Left lower extremity: no edema Psych: Appearance: grossly normal Mental Status: mental status grossly no
[2021-11-14] MEDS: ATORVASTATIN 20 MG TABLET PO (20:09)
[2021-11-14] MEDS: QUEtiapine FUMARATE 12.5 MG TABLET PO (20:09)
[2021-11-14] MEDS: traMADol HCL (*CRX) 50 MG TABLET PO (20:30)
[2021-11-15] VITALS (18 sets, daily range): BP systolic 125–149; BP diastolic 47–61; PULSE 38–80; RESP 16–25; TEMP 36.1–36.4; O2SAT 91–100
[2021-11-15 05:04] LABS: Basophils Percent Auto 0.4 % (0.2-1.2); Eosinophils Absolute Auto 0.1 K/mm3 (0-0.3); Eosinophils Percent Auto 1.7 % (0-4.4); Hematocrit 26.5 % (42.0-52.0); Hemoglobin 8.5 g/dL (14.0-18.0); Immature Granulocyte Absolute 0.03 K/mm3 (0.00-0.031); Immature Granulocyte Percent A 0.4 % (0-0.5); Lymphocytes Absolute Auto 0.99 K/mm3 (0.9-3.2); Mean Corpuscular HGB Conc 32.1 g/dl (32-36); Mean Corpuscular Hemoglobin 30.4 pg (26-34); Mean Corpuscular Volume 94.6 fl (80-100); Mean Platelet Volume 9.6 fl (7.4-10.4); Monocytes Absolute Auto 0.6 K/mm3 (0.1-0.6); Monocytes Percent Auto 7.9 % (2.6-8.5); Neutrophils Absolute Auto 5.8 K/mm3 (1.3-6.7); Neutrophils Percent Auto 76.6 % (45.5-73.1); Platelet Count Result 128 k/mm3 (150-375); Red Cell Distribution Width 16.1 % (11.5-14.5); White Blood Count 7.6 K/mm3 (4.5-10.0)
[2021-11-15 05:22] LABS: Alanine Aminotransferase 17 U/L (6-50); Albumin Level 3.7 g/dL (3.5-5.1); Alkaline Phosphatase 103 U/L (38-126); Anion Gap 8 mmol/L (8-16); Aspartate Amino Transferase 26 U/L (17-59); Bilirubin,Total 0.8 mg/dL (0.2-1.3); Blood Urea Nitrogen 68 mg/dL (9-20); Calcium 8.1 mg/dL (8.4-10.2); Carbon Dioxide 32 mmol/L (22-30); Chloride 96 mmol/L (98-107); Estimated CRCL calculation 28 ml/min; Estimated Glomerular Filt Rate 27; Glucose 95 mg/dL (65-110); Potassium 3.8 mmol/L (3.4-5.0); Sodium 136 mmol/L (137-145)
[2021-11-15 05:30] LABS: NT Pro B Type Natriuretic Pept 7930 pg/mL (5-100)
[2021-11-15] MEDS: LORazepam (*CRX) 0.5 MG TABLET PO ×3 (05:42→22:02)
[2021-11-15 05:55] LABS: Free T4 Free Thyroxine 1.43 ng/mL (0.78-2.19)
[2021-11-15] MEDS: amLODIPine BESYLATE 5 MG TABLET 10 MG PO (08:24)
[2021-11-15] MEDS: APIXABAN 2.5 MG TABLET PO (08:24)
[2021-11-15] MEDS: FINASTERIDE 5 MG TABLET PO (08:25)
[2021-11-15] MEDS: FUROSEMIDE INJ 40 MG/4 ML VIAL IV PUSH ×2 (08:25→16:40)
[2021-11-15] MEDS: DULoxetine HCL 30 MG CAPSULE.DR PO (08:25)
[2021-11-15] MEDS: GABAPENTIN 300 MG CAPSULE PO ×3 (08:26→16:40)
[2021-11-15] MEDS: LORATADINE 10 MG TABLET PO (08:26)
[2021-11-15] MEDS: rOPINIRole HCL 1 MG TABLET 2 MG PO ×4 (08:26→20:31)
--- NOTE | 2021-11-15 10:18 | PM.IMPN ---
Progress Note: A&P Assessment and Plan (1) Acute respiratory failure with hypoxia and hypercapnia: Code(s): J96.01 - Acute respiratory failure with hypoxia; J96.02 - Acute respiratory failure with hypercapnia Status: Acute Assessment and Plan: 11/14: ABG showed some hypercapnia with hypoxic respiratory failure, thought to be secondary to diastolic heart failure, repeat echo did show systolic heart failure as well, patient still requiring BiPAP for respiratory support, will attempt to wean as patient diuresis. No known history of COPD-- he is a former smoker, quit in 1978, no history of sleep apnea, will check [facility] tonight. Chest x-ray from today showed possible right lung collapse, will check CT chest. Consult pulmonology. 11/15: Appreciate pulmonology consultation, Chest CT showed moderate pulmonary edema, unable to tell if there was comorbid pneumonia, bilateral pleural effusions, no lung collapse. (2) Atrial fibrillation with slow ventricular response: Code(s): I48.91 - Unspecified atrial fibrillation Status: Acute Assessment and Plan: 11/14: Continue Eliquis, stable and rate controlled, in chronic atrial flutter requiring no AV node blockade 11/15: Stable on Eliquis (3) Congestive heart failure: Qualifiers: Heart failure chronicity: acute on chronic Heart failure type: diastolic Qualified Code(s): I50.33 - Acute on chronic diastolic (congestive) heart failure Code(s): I50.9 - Heart failure, unspecified Status: Chronic Assessment and Plan: 11/14: Echo from November 12, 2021 showed an EF of 45-50% with grade 2-3 diastolic dysfunction, no pulmonary hypertension noted, no significant valvular disease noted, no pericardial effusion seen, appreciate cardiology consultation, continue diuresis per the recommendations, anticipating shifting back to oral Lasix today per their note from yesterday, recommendations for today pending 11/15: Currently on Lasix 40 mg IV twice daily, diuresis per Cardiology, recommendations pending for today (4) Chronic kidney disease, stage 3: Code(s): N18.3 - Chronic kidney disease, stage 3 (moderate) Status: Chronic Assessment and Plan: 11/14: Acute on chronic kidney disease, creatinine worsening at 2.4 today with diuresis, baseline around 1.7, will continue to monitor, anticipate this will improve the patient is switched back to oral diuresis. Due to significant anemia as well as worsening creatinine, will consult Nephrology for further management recommendations and outpatient follow-up. 11/15: Cancel Nephrology consultation, creatinine improving, will refer outpatient (5) GERD (gastroesophageal reflux disease): Code(s): K21.9 - Gastro-esophageal reflux disease without esophagitis Status: Acute Assessment and Plan: Stable, on no meds at this time (6) Lung infiltrate: Code(s): R91.8 - Other nonspecific abnormal finding of lung field Status: Acute (7) Diabetes: Code(s): E11.9 - Type 2 diabetes mellitus without complications Status: Chronic Assessment and Plan: 11/14: Check A1c, glucose well controlled here, consistently under 180 with no interventions 11/15: a1c 5.6, no further intervention needed (8) Hyperlipidemia: Code(s): E78.5 - Hyperlipidemia, unspecified Status: Chronic Assessment and Plan: 11/14: currently on Lipitor (9) Hypertension: Qualifiers: Hypertension type: essential hypertension Qualified Code(s): I10 - Essential (primary) hypertension Code(s): I10 - Essential (primary) hypertension Status: Chronic Assessment and Plan: stable (10) Anxiety: Code(s): F41.9 - Anxiety disorder, unspecified Status: Chronic Assessment and Plan: stable on home medication, continue Ativan, Cymbalta Plan Comorbidities: 1. Obesity BMI 38 2. Chronic venous stasis dermatitis, bilateral lower ex
--- NOTE | 2021-11-15 11:07 | PM.PNCARD ---
Progress Note: A&P Assessment and Plan (1) Acute on chronic combined systolic and diastolic CHF (congestive heart failure): Code(s): I50.43 - Acute on chronic combined systolic (congestive) and diastolic (congestive) heart failure Status: Acute Assessment and Plan: Known diastolic heart failure with recent increase in diuretics as an outpatient. Slow improvement clinically, Off BiPAP, now on Echo EF 40-45% with hypokinesis to akinesis of the mid and basal inferoseptal segments. Diastolic dysfunction. Chest x-ray and CT scan shows ongoing CHF and small to moderate-sized effusions Continue diuresis with IV furosemide; permissive azotemia. Daily BMP OOB to chair daily (2) Atrial fibrillation with slow ventricular response: Code(s): I48.91 - Unspecified atrial fibrillation Status: Acute Assessment and Plan: Chronic atrial flutter. Rate controlled with no AV tracy blocking agents. Tends to be bradycardic. He is anticoagulated with apixaban (3) Nonsustained ventricular tachycardia: Code(s): I47.2 - Ventricular tachycardia Status: Acute Assessment and Plan: Nonsustained ventricular tachycardia noted yesterday, asymptomatic. Potassium and magnesium were normal Unfortunately we cannot use beta-blockers on this patient due to his bradycardia (4) Chronic kidney disease, stage 3: Code(s): N18.3 - Chronic kidney disease, stage 3 (moderate) Status: Chronic Assessment and Plan: BUN rising, creat up a little. Permissive azotemia Daily BMP Subjective Date/time seen: 11/15/21 11:07 Cariology follow up for CHF, atrial flutter Feels much better today. Sitting up in the chair during my visit with him. He reports improvement in his shortness of breath. Review of Systems Constitutional: Constitutional: Reports fatigue, Denies fever(s) and Reports lethargy Eyes: Eyes: Reports no additional eye complaints ENT: Reports nasal discharge Cardiovascular: Cardiovascular: Denies chest pain, Denies pedal edema, Reports leg edema, Denies lightheadedness and Denies dyspnea Respiratory: Respiratory: Denies chest congestion and Denies dyspnea Gastrointestinal: Gastrointestinal: Reports no additional gastrointestinal complaints, Denies abdominal pain and Denies hematochezia Musculoskeletal: Musculoskeletal: Reports back pain (From being in bed so much) Integumentary/Breasts: Skin/Breast: Reports system reviewed and no additional complaints, except as docu Neurologic: Reports system reviewed and no additional complaints, except as documented, Denies behavioral changes and Denies confusion Psychiatric: Psychiatric: Denies behavioral changes and Denies confusion Endocrine: Endocrine: Reports no additional endocrine complaints and Reports fatigue Hematologic/Lymphatic: Hematologic/Lymphatic: Reports no additional hematologic/lymphatic complaints Allergic/Immunologic: Allergic/Immunologic: Reports no additional allergic/immunologic complaints Exam Const: General: comfortable and no acute distress; No confusion Orientation/consciousness: oriented to person, patient oriented x3 and No confusion Other: Nasal cannula oxygen in place HENMT: Mouth: Yes moist mucous membranes Eyes: Sclera: sclerae normal Pupils: Equal, round and reactive pupils present EOM: EOMs intact bilaterally Neck: Neck: supple and no JVD Resp: Effort & Inspection: normal respiratory effort and able to speak in complete sentences Auscultation: clear to auscultation bilaterally and diminished lung sounds Cardio: Rate: regular rate and bradycardic Rhythm: regular rhythm and abnormal rhythm irregularly irregular GI: Inspection: normal to inspection Auscultation: normal bowel sounds Urinary Catheter: Urinary Catheter: antonio
--- NOTE | 2021-11-15 12:16 | PM.PNPUL ---
Progress Note: A&P Assessment and Plan (1) Lung infiltrate: Code(s): R91.8 - Other nonspecific abnormal finding of lung field Status: Acute Assessment and Plan: 11/14 Patient with a chest x-ray demonstrating cardiomegaly, small left pleural effusion, vascular congestion which overall has improved since 11/13/2021. There is concern for possible right lower lobe collapse and the patient is scheduled to get a CT scan. Further recommendations following CT scan. Patient has no leukocytosis, is afebrile and was started on Zosyn for possible pneumonia on 11/13. No blood cultures were sent. The infiltrates on his chest x-ray have improved over the last 18 hours and I doubt that this these infiltrates represented pneumonic process. This is more likely fluid. Will check a BNP in the morning. At this time I would continue the Zosyn and follow him clinically. Regarding his hypercarbic and hypoxic respiratory failure. The etiologies include fluid overload, and I doubt he has a significant component of COPD although he would need outpatient PFTs to assess this. He does have morbid obesity with a BMI of 38.3. He may have obesity hypoventilation syndrome. Once he is clinically improved will check a daytime ABG to assess for chronic hypercarbic respiratory failure indicative of obesity hypoventilation syndrome He may also have obstructive sleep apnea and will need an outpatient polysomnogram to determine this. TSH on 04/15/2020 was 1.98 and I will repeat thyroid studies tomorrow. he is tolerating his current BiPAP settings of rate of 20, 14/6, inspiratory time 0.9, rise of 2 and 40% well with a blood gas of 7.41/51/71, will continue these settings p.r.n. and a t night for now. He does have a tobacco history but has never been on inhalers and he has no wheezing at this time. I do not feel a need for bronchodilators, inhaled steroids or systemic steroids at this point. Of note if he does have lobar collapse it likely represents mucus plugging and at that point he may benefit from bronchodilators. 11/15 patient has no lobar collapse on his CT scan from 11/14 but he does have left greater than right pleural effusions and congestion with an elevated BNP today at 7930. He has an EF of 45-50% and grade 2 diastolic dysfunction and has been diuresed aggressively with -4.1 L since admission and a rising creatinine at 2.3 today. He has never had a white blood cell count and never had a fever. I suspect fluid overload is the main reason for his respiratory failure and agree with aggressive diuresis as tolerated by his cardiac and renal systems. Agree with Zosyn for now and today is day 3. In order to optimize his pulmonary function recommend left thoracentesis with Assessment for transudate, exudate, infection and malignancy.. Will hold apixaban today. The patient may have obesity hypoventilation syndrome and after he is optimized will check a daytime ABG to document whether not he has daytime hypercarbia. I have increased his FiO2 to 50% on his BiPAP. Discussed with Dr. Goldman, Will follow with you. Subjective Date/time seen: 11/15/21 12:16 Interval history: 11/14/2021:? This is a new pulmonary consult for right lower lobe lung collapse. ? 86-year-old with atrial flutter on anticoagulation, CKD, diastolic congestive heart failure, ? Chronic hypoxemic respiratory failure on 2-4 L nasal cannula at home who presented to the emergency room on 11/11 with shortness of breath and hypoxemia from care home.? is white blood call count was 6.9, hemoglobin 8.3,? blood gas was 7.25/76/ 61 on 8 L? nasal cannula.? patient was treated with BiPAP.? His creatinine was 2.10 his BNP was? 4660 (was 6790 on 04/14/2020), CXR with? congestion, left pleural effusion,? and treated for fluid overload with IV Lasix. ? Chest x-ray worsened with diffuse opacities in all lung zones small pleural effusion and Zosyn was started on 11/13.? chest x-ray
[2021-11-15] MEDS: traMADol HCL (*CRX) 50 MG TABLET PO (16:39)
[2021-11-15] MEDS: ATORVASTATIN 20 MG TABLET PO (20:31)
[2021-11-15] MEDS: QUEtiapine FUMARATE 12.5 MG TABLET PO (20:31)
--- NOTE | 2021-11-15 23:07 | PCRCNOTE ---
Pt is refusing use of BIPAP on 11/15. Pt states he is 'feeling fine' with his oxygen. Pt at 100% sp02 on 5L HFNC at 2300 with no visible respiratory distress.
[2021-11-16] VITALS (16 sets, daily range): BP systolic 113–134; BP diastolic 44–58; PULSE 39–80; RESP 18–24; TEMP 36.1–36.8; O2SAT 90–97
[2021-11-16] MEDS: traMADol HCL (*CRX) 50 MG TABLET PO (02:17)
[2021-11-16 04:41] LABS: Basophils Percent Auto 0.3 % (0.2-1.2); Eosinophils Absolute Auto 0.2 K/mm3 (0-0.3); Eosinophils Percent Auto 2.5 % (0-4.4); Hematocrit 25.8 % (42.0-52.0); Immature Granulocyte Absolute 0.03 K/mm3 (0.00-0.031); Immature Granulocyte Percent A 0.4 % (0-0.5); Lymphocytes Absolute Auto 1.01 K/mm3 (0.9-3.2); Lymphocytes Percent Auto 13.2 % (18.3-44.2); Mean Corpuscular Hemoglobin 29.9 pg (26-34); Mean Corpuscular Volume 96.3 fl (80-100); Mean Platelet Volume 9.2 fl (7.4-10.4); Monocytes Absolute Auto 0.6 K/mm3 (0.1-0.6); Neutrophils Absolute Auto 5.8 K/mm3 (1.3-6.7); Neutrophils Percent Auto 75.6 % (45.5-73.1); Platelet Count Result 109 k/mm3 (150-375); Red Blood Count 2.68 M/mm3 (4.6-6.20); Red Cell Distribution Width 16.2 % (11.5-14.5); White Blood Count 7.6 K/mm3 (4.5-10.0)
[2021-11-16 04:56] LABS: Alanine Aminotransferase 16 U/L (6-50); Albumin Level 3.7 g/dL (3.5-5.1); Alkaline Phosphatase 93 U/L (38-126); Anion Gap 7 mmol/L (8-16); Aspartate Amino Transferase 28 U/L (17-59); Bilirubin,Total 0.8 mg/dL (0.2-1.3); Blood Urea Nitrogen 64 mg/dL (9-20); Calcium 7.9 mg/dL (8.4-10.2); Carbon Dioxide 33 mmol/L (22-30); Chloride 95 mmol/L (98-107); Estimated CRCL calculation 27 ml/min; Estimated Glomerular Filt Rate 26; Glucose 108 mg/dL (65-110); Lactate Dehydrogenase 363 U/L (313-618); Potassium 3.6 mmol/L (3.4-5.0); Sodium 135 mmol/L (137-145)
[2021-11-16] MEDS: LORazepam (*CRX) 0.5 MG TABLET PO ×3 (06:35→21:06)
[2021-11-16 07:44] LABS: INR 1.3
[2021-11-16 07:45] LABS: Partial Thromboplastin Time 44.7 SECONDS (22.3-36.8)
[2021-11-16] MEDS: GABAPENTIN 300 MG CAPSULE PO ×3 (08:16→17:48)
[2021-11-16] MEDS: amLODIPine BESYLATE 5 MG TABLET 10 MG PO (08:16)
[2021-11-16] MEDS: FUROSEMIDE INJ 40 MG/4 ML VIAL IV PUSH ×2 (08:16→17:48)
[2021-11-16] MEDS: rOPINIRole HCL 1 MG TABLET 2 MG PO ×4 (08:16→20:58)
[2021-11-16] MEDS: DULoxetine HCL 30 MG CAPSULE.DR PO (08:17)
[2021-11-16] MEDS: FINASTERIDE 5 MG TABLET PO (08:17)
[2021-11-16] MEDS: LORATADINE 10 MG TABLET PO (08:17)
--- NOTE | 2021-11-16 09:48 | P.PNPL_ITS ---
Progress Note: A&P Assessment and Plan (1) Lung infiltrate: Code(s): R91.8 - Other nonspecific abnormal finding of lung field Status: Acute Assessment and Plan: 11/14 Patient with a chest x-ray demonstrating cardiomegaly, small left pleural effusion, vascular congestion which overall has improved since 11/13/2021. There is concern for possible right lower lobe collapse and the patient is scheduled to get a CT scan. Further recommendations following CT scan. Patient has no leukocytosis, is afebrile and was started on Zosyn for possible pneumonia on 11/13. No blood cultures were sent. The infiltrates on his chest x-ray have improved over the last 18 hours and I doubt that this these infiltrates represented pneumonic process. This is more likely fluid. Will check a BNP in the morning. At this time I would continue the Zosyn and follow him clinically. Regarding his hypercarbic and hypoxic respiratory failure. The etiologies include fluid overload, and I doubt he has a significant component of COPD although he would need outpatient PFTs to assess this. He does have morbid obesity with a BMI of 38.3. He may have obesity hypoventilation syndrome. Once he is clinically improved will check a daytime ABG to assess for chronic hypercarbic respiratory failure indicative of obesity hypoventilation syndrome He may also have obstructive sleep apnea and will need an outpatient william ysomnogram to determine this. TSH on 04/15/2020 was 1.98 and I will repeat thyroid studies tomorrow. he is tolerating his current BiPAP settings of rate of 20, 14/6, inspiratory time 0.9, rise of 2 and 40% well with a blood gas of 7.41/51/71, will continue these settings p.r.n. and a t night for now. He does have a tobacco history but has never been on inhalers and he has no wheezing at this time. I do not feel a need for bronchodilators, inhaled steroids or systemic steroids at this point. Of note if he does have lobar collapse it likely represents mucus plugging and at that point he may benefit from bronchodilators. 11/15 patient has no lobar collapse on his CT scan from 11/14 but he does have left greater than right pleural effusions and congestion with an elevated BNP today at 7930. He has an EF of 45-50% and grade 2 diastolic dysfunction and has been diuresed aggressively with -4.1 L since admission and a rising creatinine at 2.3 today. He has never had a white blood cell count and never had a fever. I suspect fluid overload is the main reason for his respiratory failure and agree with aggressive diuresis as tolerated by his cardiac and renal systems. Agree with Zosyn for now and today is day 3. In order to optimize his pulmonary function recommend left thoracentesis with Assessment for transudate, exudate, infection and malignancy.. Will hold apixaban today. The patient may have obesity hypoventilation syndrome and after he is optimized will check a daytime ABG to document whether not he has daytime hypercarbia. I have increased his FiO2 to 50% on his BiPAP. 11/16 Patient remained off BiPAP throughout the day yesterday and was on 6 L nasal cannula. Patient wore BiPAP with full face mask in the evening and said that it did help him sleep. Currently the patient is off BiPAP on on 6 L nasal cannula saturations 93%. Overall he still says he is short of breath with a mild cough and mild phlegm production. He has no hemoptysis the phlegm is described as clear. He continues to diurese on lasix 40 IV BID and through yesterday he is -4.5 L. Cr is 2.4. his white blood cell count is 7.6. He is afebrile and today is day 4 of Zosyn. he is scheduled for left thoracentesis later today. Will DC zosyn after 5 day
--- NOTE | 2021-11-16 09:55 | PM.IMPN ---
Progress Note: A&P Assessment and Plan (1) Acute respiratory failure with hypoxia and hypercapnia: Code(s): J96.01 - Acute respiratory failure with hypoxia; J96.02 - Acute respiratory failure with hypercapnia Status: Acute Assessment and Plan: 11/14: ABG showed some hypercapnia with hypoxic respiratory failure, thought to be secondary to diastolic heart failure, repeat echo did show systolic heart failure as well, patient still requiring BiPAP for respiratory support, will attempt to wean as patient diuresis. No known history of COPD-- he is a former smoker, quit in 1978, no history of sleep apnea, will check [facility] tonight. Chest x-ray from today showed possible right lung collapse, will check CT chest. Consult pulmonology. 11/15: Appreciate pulmonology consultation, Chest CT showed moderate pulmonary edema, unable to tell if there was comorbid pneumonia, bilateral pleural effusions, no lung collapse. 11/16: Spoke with Dr. Kidd, pulmonology, he suspects hypercapnic respiratory failure secondary to diuresis, he recommends checking an ABG once patient is euvolemic. (2) Atrial fibrillation with slow ventricular response: Code(s): I48.91 - Unspecified atrial fibrillation Status: Acute Assessment and Plan: 11/14: Continue Eliquis, stable and rate controlled, in chronic atrial flutter requiring no AV node blockade 11/15: Stable on Eliquis (3) Congestive heart failure: Qualifiers: Heart failure chronicity: acute on chronic Heart failure type: diastolic Qualified Code(s): I50.33 - Acute on chronic diastolic (congestive) heart failure Code(s): I50.9 - Heart failure, unspecified Status: Chronic Assessment and Plan: 11/14: Echo from November 12, 2021 showed an EF of 45-50% with grade 2-3 diastolic dysfunction, no pulmonary hypertension noted, no significant valvular disease noted, no pericardial effusion seen, appreciate cardiology consultation, continue diuresis per the recommendations, anticipating shifting back to oral Lasix today per their note from yesterday, recommendations for today pending 11/15: Currently on Lasix 40 mg IV twice daily, diuresis per Cardiology, recommendations pending for today (4) Chronic kidney disease, stage 3: Code(s): N18.3 - Chronic kidney disease, stage 3 (moderate) Status: Chronic Assessment and Plan: 11/14: Acute on chronic kidney disease, creatinine worsening at 2.4 today with diuresis, baseline around 1.7, will continue to monitor, anticipate this will improve the patient is switched back to oral diuresis. Due to significant anemia as well as worsening creatinine, will consult Nephrology for further management recommendations and outpatient follow-up. 11/15: Cancel Nephrology consultation, creatinine improving, will refer outpatient 11/16: Creatinine fluctuating due to permissive azotemia from diuresis, monitor (5) GERD (gastroesophageal reflux disease): Code(s): K21.9 - Gastro-esophageal reflux disease without esophagitis Status: Acute Assessment and Plan: Stable, on no meds at this time (6) Lung infiltrate: Code(s): R91.8 - Other nonspecific abnormal finding of lung field Status: Acute (7) Diabetes: Code(s): E11.9 - Type 2 diabetes mellitus without complications Status: Chronic Assessment and Plan: 11/14: Check A1c, glucose well controlled here, consistently under 180 with no interventions 11/15: a1c 5.6, no further intervention needed (8) Hyperlipidemia: Code(s): E78.5 - Hyperlipidemia, unspecified Status: Chronic Assessment and Plan: 11/14: currently on Lipitor (9) Hypertension: Qualifiers: Hypertension type: essential hypertension Qualified Code(s): I10 - Essential (primary) hypertension Code(s): I10 - Essential (primary) hypertension Status: Chronic Assessment and Plan: stable (10) Anxiety: Cod
--- NOTE | 2021-11-16 10:35 | PC.NURSE ---
Request for medical records sent to [facility] by this RN per Pulmonology MD request. Awaiting response from hospital at this time. Will continue to monitor.
--- NOTE | 2021-11-16 11:52 | PC.NURSE ---
Patient off unit to ultrasound for thoracentesis. Received orders from Dr. Altamirano for patient to travel to procedure without RN present. Patient stable upon transfer to procedure. Will continue to monitor.
--- NOTE | 2021-11-16 12:30 | PC.NURSE ---
Patient returned to floor from procedure. All vitals stable post procedure. Patient denies complaints at this time.
[2021-11-16 12:46] LABS: pH Pleural Fluid 7.413 (7.210-7.500)
--- NOTE | 2021-11-16 13:05 | PM.PNCARD ---
Progress Note: A&P Assessment and Plan (1) Acute on chronic combined systolic and diastolic CHF (congestive heart failure): Code(s): I50.43 - Acute on chronic combined systolic (congestive) and diastolic (congestive) heart failure Status: Acute Assessment and Plan: Known diastolic heart failure with recent increase in diuretics as an outpatient. Slow improvement clinically, Off BiPAP, now on Echo EF 40-45% with hypokinesis to akinesis of the mid and basal inferoseptal segments. Diastolic dysfunction. Chest x-ray and CT scan showed ongoing CHF and small to moderate-sized effusions...now s/p thoracentesis with 600cc fluid removed. Continue diuresis with IV furosemide today; permissive azotemia. Daily BMP OOB to chair daily (2) Atrial fibrillation with slow ventricular response: Code(s): I48.91 - Unspecified atrial fibrillation Status: Acute Assessment and Plan: Chronic atrial flutter. Rate controlled with no AV tracy blocking agents. Tends to be bradycardic. He is anticoagulated with apixaban (3) Nonsustained ventricular tachycardia: Code(s): I47.2 - Ventricular tachycardia Status: Acute Assessment and Plan: Nonsustained ventricular tachycardia noted yesterday, asymptomatic. Potassium and magnesium were normal Unfortunately we cannot use beta-blockers on this patient due to his bradycardia (4) Chronic kidney disease, stage 3: Code(s): N18.3 - Chronic kidney disease, stage 3 (moderate) Status: Chronic Assessment and Plan: BUN stable, creat up a little. Permissive azotemia Daily BMP Subjective Date/time seen: 11/16/21 13:05 Cardiology follow up for CHF S/p thoracentesis today and is feeling much better. Breathing comfortably on 6L O2. No specific complaints. Review of Systems Constitutional: Constitutional: Reports fatigue, Denies fever(s) and Reports lethargy Eyes: Eyes: Reports no additional eye complaints ENT: Reports nasal discharge Cardiovascular: Cardiovascular: Denies chest pain, Denies pedal edema, Reports leg edema, Denies lightheadedness and Denies dyspnea Respiratory: Respiratory: Denies chest congestion and Denies dyspnea Gastrointestinal: Gastrointestinal: Reports no additional gastrointestinal complaints, Denies abdominal pain and Denies hematochezia Musculoskeletal: Musculoskeletal: Reports back pain (From being in bed so much) Integumentary/Breasts: Skin/Breast: Reports system reviewed and no additional complaints, except as docu Neurologic: Reports system reviewed and no additional complaints, except as documented, Denies behavioral changes and Denies confusion Psychiatric: Psychiatric: Denies behavioral changes and Denies confusion Endocrine: Endocrine: Reports no additional endocrine complaints and Reports fatigue Hematologic/Lymphatic: Hematologic/Lymphatic: Reports no additional hematologic/lymphatic complaints Allergic/Immunologic: Allergic/Immunologic: Reports no additional allergic/immunologic complaints Exam Const: General: comfortable, no acute distress and uncomfortable (Back is bothering him); No confusion Orientation/consciousness: oriented to person, patient oriented x3 and No confusion Other: Nasal cannula oxygen in place HENMT: Mouth: Yes moist mucous membranes Eyes: Sclera: sclerae normal Pupils: Equal, round and reactive pupils present EOM: EOMs intact bilaterally Neck: Neck: supple and no JVD Resp: Effort & Inspection: normal respiratory effort and able to speak in complete sentences Auscultation: clear to auscultation bilaterally and diminished lung sounds Other: Appears to have some increased effort of breathing with conversation Cardio: Rate: regular rate and bradycardic Rhythm: regular rhythm and abnormal rhythm irregularly irregular
[2021-11-16 14:08] LABS: Pleural fluid source Pleural fluid
[2021-11-16 14:09] LABS: Appearance Pleural Fluid Bloody (Clear); Color Pleural Fluid Red (Colorless); Lymphocytes Pleural Fluid 78 %; Monocytes Pleural Fluid 6 %; Neutrophils Pleural Fluid 13 % (0-25)
[2021-11-16 14:10] LABS: Mesothelial Cells Pleural Flui 3 %
[2021-11-16] MEDS: ATORVASTATIN 20 MG TABLET PO (20:56)
[2021-11-16] MEDS: QUEtiapine FUMARATE 12.5 MG TABLET PO (20:58)
[2021-11-16] MEDS: ACETAMINOPHEN 325 MG TABLET 650 MG PO (23:20)
[2021-11-17] VITALS (14 sets, daily range): BP systolic 103–143; BP diastolic 38–55; PULSE 38–78; RESP 20–32; TEMP 36–36.8; O2SAT 90–100
[2021-11-17 04:41] LABS: Basophils Percent Auto 0.1 % (0.2-1.2); Eosinophils Absolute Auto 0.2 K/mm3 (0-0.3); Eosinophils Percent Auto 3.2 % (0-4.4); Hematocrit 25.6 % (42.0-52.0); Hemoglobin 7.6 g/dL (14.0-18.0); Immature Granulocyte Absolute 0.02 K/mm3 (0.00-0.031); Immature Granulocyte Percent A 0.3 % (0-0.5); Immature Platelet Fraction Pct 3.6 % (0.9-11.2); Lymphocytes Absolute Auto 0.93 K/mm3 (0.9-3.2); Lymphocytes Percent Auto 13.5 % (18.3-44.2); Mean Corpuscular HGB Conc 29.7 g/dl (32-36); Mean Corpuscular Hemoglobin 29.2 pg (26-34); Mean Corpuscular Volume 98.5 fl (80-100); Mean Platelet Volume 9.7 fl (7.4-10.4); Monocytes Absolute Auto 0.5 K/mm3 (0.1-0.6); Monocytes Percent Auto 7.3 % (2.6-8.5); Neutrophils Absolute Auto 5.2 K/mm3 (1.3-6.7); Neutrophils Percent Auto 75.6 % (45.5-73.1); Platelet Count Result 117 k/mm3 (150-375); Red Cell Distribution Width 16.2 % (11.5-14.5); White Blood Count 6.9 K/mm3 (4.5-10.0)
[2021-11-17 04:57] LABS: Alanine Aminotransferase 17 U/L (6-50); Albumin Level 3.7 g/dL (3.5-5.1); Alkaline Phosphatase 89 U/L (38-126); Anion Gap 7 mmol/L (8-16); Aspartate Amino Transferase 30 U/L (17-59); Bilirubin,Total 0.8 mg/dL (0.2-1.3); Blood Urea Nitrogen 65 mg/dL (9-20); Calcium 7.6 mg/dL (8.4-10.2); Carbon Dioxide 35 mmol/L (22-30); Chloride 95 mmol/L (98-107); Estimated CRCL calculation 27 ml/min; Estimated Glomerular Filt Rate 26; Glucose 97 mg/dL (65-110); Potassium 3.8 mmol/L (3.4-5.0); Sodium 137 mmol/L (137-145)
[2021-11-17 05:07] LABS: Anisocytosis 1+ (NORMAL); Basophilic Stippling 1+ (NORMAL)
[2021-11-17] MEDS: LORazepam (*CRX) 0.5 MG TABLET PO ×2 (07:03→21:13)
[2021-11-17] MEDS: DULoxetine HCL 30 MG CAPSULE.DR PO (08:09)
[2021-11-17] MEDS: FINASTERIDE 5 MG TABLET PO (08:09)
[2021-11-17] MEDS: LORATADINE 10 MG TABLET PO (08:09)
[2021-11-17] MEDS: amLODIPine BESYLATE 5 MG TABLET 10 MG PO (08:09)
[2021-11-17] MEDS: rOPINIRole HCL 1 MG TABLET 2 MG PO ×3 (08:09→20:59)
[2021-11-17] MEDS: FUROSEMIDE INJ 40 MG/4 ML VIAL IV PUSH ×3 (08:09→18:11)
[2021-11-17] MEDS: GABAPENTIN 300 MG CAPSULE PO ×2 (08:09→18:11)
--- NOTE | 2021-11-17 08:21 | PM.IMPN ---
Progress Note: A&P Assessment and Plan (1) Acute respiratory failure with hypoxia and hypercapnia: Code(s): J96.01 - Acute respiratory failure with hypoxia; J96.02 - Acute respiratory failure with hypercapnia Status: Acute Assessment and Plan: 11/14: ABG showed some hypercapnia with hypoxic respiratory failure, thought to be secondary to diastolic heart failure, repeat echo did show systolic heart failure as well, patient still requiring BiPAP for respiratory support, will attempt to wean as patient diuresis. No known history of COPD-- he is a former smoker, quit in 1978, no history of sleep apnea, will check [facility] tonight. Chest x-ray from today showed possible right lung collapse, will check CT chest. Consult pulmonology. 11/15: Appreciate pulmonology consultation, Chest CT showed moderate pulmonary edema, unable to tell if there was comorbid pneumonia, bilateral pleural effusions, no lung collapse. 11/16: Spoke with Dr. Kidd, pulmonology, he suspects hypercapnic respiratory failure secondary to diuresis, he recommends checking an ABG once patient is euvolemic. 11/17: worsening resp status, ABG showed hypoxia, put on hi-diann oxygen, repeat CXR showed worsening edema, diuresis increased. Appreciate cardiology recs re: diuresis (2) Atrial fibrillation with slow ventricular response: Code(s): I48.91 - Unspecified atrial fibrillation Status: Acute Assessment and Plan: 11/14: Continue Eliquis, stable and rate controlled, in chronic atrial flutter requiring no AV node blockade 11/15: Stable on Eliquis (3) Congestive heart failure: Qualifiers: Heart failure chronicity: acute on chronic Heart failure type: diastolic Qualified Code(s): I50.33 - Acute on chronic diastolic (congestive) heart failure Code(s): I50.9 - Heart failure, unspecified Status: Chronic Assessment and Plan: 11/14: Echo from November 12, 2021 showed an EF of 45-50% with grade 2-3 diastolic dysfunction, no pulmonary hypertension noted, no significant valvular disease noted, no pericardial effusion seen, appreciate cardiology consultation, continue diuresis per the recommendations, anticipating shifting back to oral Lasix today per their note from yesterday, recommendations for today pending 11/15: Currently on Lasix 40 mg IV twice daily, diuresis per Cardiology, recommendations pending for today 11/16: Cont diuresis, monitor, appreciate cardio, improving 11/17: diuresis dose increased, patient worsening, appreciate cardio recs (4) Chronic kidney disease, stage 3: Code(s): N18.3 - Chronic kidney disease, stage 3 (moderate) Status: Chronic Assessment and Plan: 11/14: Acute on chronic kidney disease, creatinine worsening at 2.4 today with diuresis, baseline around 1.7, will continue to monitor, anticipate this will improve the patient is switched back to oral diuresis. Due to significant anemia as well as worsening creatinine, will consult Nephrology for further management recommendations and outpatient follow-up. 11/15: Cancel Nephrology consultation, creatinine improving, will refer outpatient 11/16: Creatinine fluctuating due to permissive azotemia from diuresis, monitor 11/17: creatinine stable (5) GERD (gastroesophageal reflux disease): Code(s): K21.9 - Gastro-esophageal reflux disease without esophagitis Status: Acute Assessment and Plan: Stable, on no meds at this time (6) Lung infiltrate: Code(s): R91.8 - Other nonspecific abnormal finding of lung field Status: Acute (7) Diabetes: Code(s): E11.9 - Type 2 diabetes mellitus without complications Status: Chronic Assessment and Plan: 11/14: Check A1c, glucose well controlled here, consistently under 180 with no interventions 11/15: a1c 5.6, no further intervention needed (8) Hyperlipidemia: Code(s): E78.5 - Hyperlipidemia, unspecified Status: Chronic Assessment and Plan:
[2021-11-17] MEDS: LORazepam INJ (*CRX) 2 MG/ML VIAL 1 MG IV PUSH (09:40)
[2021-11-17 09:41] LABS: Alveolar/Arterial O2 Gradient 147.9 mmHg; Base Excess ABG 5.8 mEq/l (+/-2.0); Fractional Inspired Oxygen 36 %; HCO3 ABG 31.5 mEq/l (22.0-26.0); Oxygen Content ABG 9.6 %vol (16.0-22.0); PCO2 ABG 52.7 mmHg (35.0-45.0); PO2 ABG 47.7 mmHg (80.0-100.0); PO2 FiO2 Ratio Arterial Blood 1.33 %; Total Hemoglobin 8.3 g/dL (12.0-18.0); pH ABG 7.394 (7.350-7.450)
[2021-11-17 09:43] LABS: Device HIGH FLOW NASAL CANN; Modified Allen's Test Pass; Oxygen Saturation ABG 82.6 % (95.0-100.0); Oxyhemoglobin 81.9 % THb (90.0-100.0); Site Drawn RIGHT RADIAL
--- NOTE | 2021-11-17 12:42 | PCSTNOTE ---
Spoke with nursing who indicated they observed patient having difficulty with his swallow and potentially had aspiration. We agreed to cancel the bedside swallow evaluation and instead go straight to completing an MBS. Nsg called physician who agreed with this order.
--- NOTE | 2021-11-17 14:39 | PCSTNOTE ---
Please refer to the Modified Barium Swallow Evaluation in the EMR. Mr. Shelton indicated that he does not have trouble with swallowing and that at his home/assisted setting, he only eats upright in his wheelchair or sitting on the side of the bed. He reported he had trouble this morning here due to not being upright. Mr. Shelton presents with broad shoulders that somewhat obscured the view during this MBS although he demonstrated good laryngeal elevation for swallows (which then came into view) and during this time all swallows appeared to be WFL. He demonstrated good control to hold fluid in his mouth, strong pharyngeal squeeze with trace to no residual material post swallow. At no point, did it appear that any substance got past the level of the vocal cords although trace laryngeal flash penetration was noted. This was managed without risk for aspiration. No further treatment is warranted and Mr. Shelton may resume an oral diet as tolerated with thin liquids as judging by MBS results today. Caregivers should be certain he is upright for all oral intake. It would also be beneficial for him to have Fixodent to allow for better fitting of his dentures.
[2021-11-17 14:54] LABS: Alveolar/Arterial O2 Gradient 81.9 mmHg; Base Excess ABG 5.9 mEq/l (+/-2.0); Fractional Inspired Oxygen 36 %; HCO3 ABG 33.4 mEq/l (22.0-26.0); Oxygen Content ABG 14.9 %vol (16.0-22.0); Oxygen Saturation ABG 96.9 % (95.0-100.0); Oxyhemoglobin 96.1 % THb (90.0-100.0); PCO2 ABG 64.9 mmHg (35.0-45.0); PO2 ABG 99.5 mmHg (80.0-100.0); PO2 FiO2 Ratio Arterial Blood 2.76 %; Total Hemoglobin 10.9 g/dL (12.0-18.0); pH ABG 7.329 (7.350-7.450)
[2021-11-17 14:55] LABS: Device HIGH FLOW NASAL CANN; Modified Allen's Test Pass; Site Drawn RIGHT RADIAL
--- NOTE | 2021-11-17 15:23 | PM.PNCARD ---
Progress Note: A&P Assessment and Plan (1) Acute on chronic combined systolic and diastolic CHF (congestive heart failure): Code(s): I50.43 - Acute on chronic combined systolic (congestive) and diastolic (congestive) heart failure Status: Acute Assessment and Plan: Known diastolic heart failure with recent increase in diuretics as an outpatient. Slow improvement clinically, Off BiPAP, now on Echo EF 40-45% with hypokinesis to akinesis of the mid and basal inferoseptal segments. Diastolic dysfunction. Chest x-ray and CT scan showed ongoing CHF and small to moderate-sized effusions...s/p thoracentesis with 600cc fluid removed 11/16/21. Chest x-ray today worse with concerns for aspiration. Patient was made NPO until swallow evaluation yet review of this evaluation indicates no limitations and may resume oral diet as tolerated with thin liquids and making sure the patient sits upright. Additional IV Lasix improved respiratory status. Continue diuresis with IV furosemide today; permissive azotemia. Monitor renal function, BP and electrolytes. Daily BMP OOB to chair daily (2) Atrial fibrillation with slow ventricular response: Code(s): I48.91 - Unspecified atrial fibrillation Status: Acute Assessment and Plan: Chronic atrial flutter with slow ventricular response, tolerating well. Rate controlled with no AV tracy blocking agents. Chronic bradycardia. Apixaban held 11/15/2021 presumably for thoracentesis. Recommend resuming anticoagulation if H&H stable and no concern for bleeding. Check CBC in a.m.. (3) Nonsustained ventricular tachycardia: Code(s): I47.2 - Ventricular tachycardia Status: Acute Assessment and Plan: Nonsustained ventricular tachycardia noted yesterday, asymptomatic. Potassium and magnesium were normal No use of antiarrhythmic or AV tracy blocking agents on this patient due to his bradycardia (4) Chronic kidney disease, stage 3: Code(s): N18.3 - Chronic kidney disease, stage 3 (moderate) Status: Chronic Assessment and Plan: BUN stable, creat up a little. Permissive azotemia Daily BMP stable overall. (5) Anemia: Qualifiers: Anemia type: unspecified type Qualified Code(s): D64.9 - Anemia, unspecified Code(s): D64.9 - Anemia, unspecified Status: Acute Assessment and Plan: Severe anemia slow decline over the past several days. No evidence of active bleed. Continue to follow H&H closely. Platelet count slowly declining as well. He is currently off apixaban discontinued 11/15/2021. Subjective Date/time seen: Date of service: 11/17/21 15:23 Follow-up for chronic atrial flutter with slow ventricular response, CHF Patient more confused this morning, reported being more short of breath. Nursing reports patient aspirated, chest x-ray revealed worsening interstitial edema. Given additional Lasix 40 mg IV with improvement in shortness of breath. Patient states he feels better overall. Patient speaking in short sentences but was sleeping initially easily arousable. Comfortable. Denies chest pain. Review of Systems Constitutional: Constitutional: Reports fatigue, Denies fever(s) and Reports lethargy Eyes: Eyes: Reports no additional eye complaints ENT: Reports nasal discharge Cardiovascular: Cardiovascular: Denies chest pain, Denies pedal edema, Reports leg edema, Denies lightheadedness and Denies dyspnea Respiratory: Respiratory: Denies chest congestion and Denies dyspnea Gastrointestinal: Gastrointestinal: Reports no additional gastrointestinal complaints, Denies abdominal pain and Denies hematochezia Musculoskeletal: Musculoskeletal: Reports back pain (From being in bed so much) Integumentary/Breasts: Skin/Breast: Reports system reviewed and no additional compla
[2021-11-17] MEDS: QUEtiapine FUMARATE 12.5 MG TABLET PO (20:59)
[2021-11-17] MEDS: ATORVASTATIN 20 MG TABLET PO (20:59)
[2021-11-17] MEDS: ACETAMINOPHEN 325 MG TABLET 650 MG PO (21:13)
[2021-11-18] VITALS (21 sets, daily range): BP systolic 91–164; BP diastolic 48–78; PULSE 38–87; RESP 16–25; TEMP 36.2–37.2; O2SAT 93–100
[2021-11-18 04:31] LABS: Basophils Percent Auto 0.3 % (0.2-1.2); Eosinophils Absolute Auto 0.2 K/mm3 (0-0.3); Eosinophils Percent Auto 3.9 % (0-4.4); Hematocrit 25.4 % (42.0-52.0); Hemoglobin 7.6 g/dL (14.0-18.0); Immature Granulocyte Absolute 0.02 K/mm3 (0.00-0.031); Immature Granulocyte Percent A 0.3 % (0-0.5); Immature Platelet Fraction Pct 3.5 % (0.9-11.2); Lymphocytes Absolute Auto 0.93 K/mm3 (0.9-3.2); Lymphocytes Percent Auto 15.1 % (18.3-44.2); Mean Corpuscular HGB Conc 29.9 g/dl (32-36); Mean Corpuscular Hemoglobin 29.3 pg (26-34); Mean Corpuscular Volume 98.1 fl (80-100); Mean Platelet Volume 9.8 fl (7.4-10.4); Monocytes Absolute Auto 0.5 K/mm3 (0.1-0.6); Monocytes Percent Auto 7.9 % (2.6-8.5); Neutrophils Absolute Auto 4.5 K/mm3 (1.3-6.7); Neutrophils Percent Auto 72.5 % (45.5-73.1); Platelet Count Result 108 k/mm3 (150-375); Red Blood Count 2.59 M/mm3 (4.6-6.20); Red Cell Distribution Width 16.1 % (11.5-14.5); White Blood Count 6.2 K/mm3 (4.5-10.0)
[2021-11-18 04:40] LABS: Alanine Aminotransferase 18 U/L (6-50); Albumin Level 3.6 g/dL (3.5-5.1); Alkaline Phosphatase 93 U/L (38-126); Anion Gap 7 mmol/L (8-16); Aspartate Amino Transferase 31 U/L (17-59); Bilirubin,Total 0.8 mg/dL (0.2-1.3); Blood Urea Nitrogen 65 mg/dL (9-20); Calcium 7.5 mg/dL (8.4-10.2); Carbon Dioxide 37 mmol/L (22-30); Chloride 92 mmol/L (98-107); Estimated CRCL calculation 27 ml/min; Estimated Glomerular Filt Rate 26; Glucose 89 mg/dL (65-110); Potassium 3.7 mmol/L (3.4-5.0); Sodium 136 mmol/L (137-145)
[2021-11-18] MEDS: WATER FOR IRRIGATION, STERILE 1,000 ML BOTTLE 1000 ML (05:28)
[2021-11-18] MEDS: LORazepam (*CRX) 0.5 MG TABLET PO ×3 (05:40→22:23)
--- NOTE | 2021-11-18 07:57 | PM.IMPN ---
Progress Note: A&P Assessment and Plan (1) Acute respiratory failure with hypoxia and hypercapnia: Code(s): J96.01 - Acute respiratory failure with hypoxia; J96.02 - Acute respiratory failure with hypercapnia Status: Acute Assessment and Plan: 11/14: ABG showed some hypercapnia with hypoxic respiratory failure, thought to be secondary to diastolic heart failure, repeat echo did show systolic heart failure as well, patient still requiring BiPAP for respiratory support, will attempt to wean as patient diuresis. No known history of COPD-- he is a former smoker, quit in 1978, no history of sleep apnea, will check [facility] tonight. Chest x-ray from today showed possible right lung collapse, will check CT chest. Consult pulmonology. 11/15: Appreciate pulmonology consultation, Chest CT showed moderate pulmonary edema, unable to tell if there was comorbid pneumonia, bilateral pleural effusions, no lung collapse. 11/16: Spoke with Dr. Kidd, pulmonology, he suspects hypercapnic respiratory failure secondary to diuresis, he recommends checking an ABG once patient is euvolemic. 11/17: worsening resp status, ABG showed hypoxia with worsening hypercapnia, put on hi-diann oxygen, repeat CXR showed worsening edema, diuresis increased. Appreciate cardiology recs re: diuresis 11/18: patient clinically much improved today after more aggressive diuresis yesterday, ABG pending, creatinine and sodium stable despite increased dose of Lasix yesterday (2) Atrial fibrillation with slow ventricular response: Code(s): I48.91 - Unspecified atrial fibrillation Status: Acute Assessment and Plan: 11/14: Continue Eliquis, stable and rate controlled, in chronic atrial flutter requiring no AV node blockade 11/15: Stable on Eliquis (3) Congestive heart failure: Qualifiers: Heart failure chronicity: acute on chronic Heart failure type: diastolic Qualified Code(s): I50.33 - Acute on chronic diastolic (congestive) heart failure Code(s): I50.9 - Heart failure, unspecified Status: Chronic Assessment and Plan: 11/14: Echo from November 12, 2021 showed an EF of 45-50% with grade 2-3 diastolic dysfunction, no pulmonary hypertension noted, no significant valvular disease noted, no pericardial effusion seen, appreciate cardiology consultation, continue diuresis per the recommendations, anticipating shifting back to oral Lasix today per their note from yesterday, recommendations for today pending 11/15: Currently on Lasix 40 mg IV twice daily, diuresis per Cardiology, recommendations pending for today 11/16: Cont diuresis, monitor, appreciate cardio, improving 11/17: diuresis dose increased, patient worsening, appreciate cardio recs 11/18: See above for full plan (4) Chronic kidney disease, stage 3: Code(s): N18.3 - Chronic kidney disease, stage 3 (moderate) Status: Chronic Assessment and Plan: 11/14: Acute on chronic kidney disease, creatinine worsening at 2.4 today with diuresis, baseline around 1.7, will continue to monitor, anticipate this will improve the patient is switched back to oral diuresis. Due to significant anemia as well as worsening creatinine, will consult Nephrology for further management recommendations and outpatient follow-up. 11/15: Cancel Nephrology consultation, creatinine improving, will refer outpatient 11/16: Creatinine fluctuating due to permissive azotemia from diuresis, monitor 11/17: creatinine stable 11/18: Stable (5) GERD (gastroesophageal reflux disease): Code(s): K21.9 - Gastro-esophageal reflux disease without esophagitis Status: Acute Assessment and Plan: Stable, on no meds at this time (6) Lung infiltrate: Code(s): R91.8 - Other nonspecific abnormal finding of lung field Status: Acute (7) Diabetes: Code(s): E11.9 - Type 2 diabetes mellitus without complications Status: Chronic Assessment and Plan: 11/14: Check A1c, gluco
[2021-11-18] MEDS: rOPINIRole HCL 1 MG TABLET 2 MG PO ×4 (09:02→20:18)
[2021-11-18] MEDS: DULoxetine HCL 30 MG CAPSULE.DR PO (09:02)
[2021-11-18] MEDS: FINASTERIDE 5 MG TABLET PO (09:02)
[2021-11-18] MEDS: amLODIPine BESYLATE 5 MG TABLET 10 MG PO (09:02)
[2021-11-18] MEDS: GABAPENTIN 300 MG CAPSULE PO ×3 (09:02→17:54)
[2021-11-18] MEDS: APIXABAN 2.5 MG TABLET PO ×2 (09:02→20:17)
[2021-11-18] MEDS: FUROSEMIDE INJ 40 MG/4 ML VIAL IV PUSH ×2 (09:03→13:05)
[2021-11-18] MEDS: LORATADINE 10 MG TABLET PO (09:09)
[2021-11-18 10:13] LABS: Base Excess ABG 5.9 mEq/l (+/-2.0); Fractional Inspired Oxygen 40 %; Oxygen Content ABG 8.7 %vol (16.0-22.0); PCO2 ABG 55.7 mmHg (35.0-45.0); PO2 FiO2 Ratio Arterial Blood 0.95 %
[2021-11-18 10:21] LABS: PO2 ABG 38.1 mmHg (80.0-100.0)
[2021-11-18 10:22] LABS: Oxygen Saturation ABG 69.8 % (95.0-100.0); Oxyhemoglobin 68.9 % THb (90.0-100.0)
[2021-11-18 10:23] LABS: Device HIGH FLOW NASAL CANN; Modified Allen's Test Pass; Site Drawn RIGHT RADIAL
[2021-11-18 10:27] LABS: pH ABG 7.377 (7.350-7.450)
--- NOTE | 2021-11-18 13:10 | PCRCNOTE ---
Increased O2 to 8lpm HFNC at [address] Altamirano
--- NOTE | 2021-11-18 13:54 | PM.PNCARD ---
Progress Note: A&P Assessment and Plan (1) Acute on chronic combined systolic and diastolic CHF (congestive heart failure): Code(s): I50.43 - Acute on chronic combined systolic (congestive) and diastolic (congestive) heart failure Status: Acute Assessment and Plan: Known diastolic heart failure with recent increase in diuretics as an outpatient. Slow improvement clinically, intermittent BiPAP. Echo EF 40-45% with hypokinesis to akinesis of the mid and basal inferoseptal segments. Diastolic dysfunction. Chest x-ray and CT scan showed ongoing CHF and small to moderate-sized effusions...s/p thoracentesis with 600cc fluid removed 11/16/21. Patient adamant he wants to be discharged. In that case he still requires diuresis would transition to oral regimen Bumex 2 mg twice daily. I believe he would benefit from further intravenous diuresis today but if he refuses to remain hospitalized a transition as above. Counseled patient he needs to be stable prior to discharge to minimize risk for readmission. To this he responds I am not an idiot yet was demanding to be discharged despite expression of concerns for heart failure with ongoing volume overload resulting in high risk for readmission. Monitor renal function, BP and electrolytes. Discussed with hospitalist service. Daily BMP OOB to chair daily While I do not recommend he is discharged at this time and feel he would benefit from further inpatient management if patient refuses he understands and accepts risk for further decompensation. (2) Atrial fibrillation with slow ventricular response: Code(s): I48.91 - Unspecified atrial fibrillation Status: Acute Assessment and Plan: Chronic atrial flutter with slow ventricular response, tolerating well. Rate controlled with no AV tracy blocking agents. Chronic bradycardia. Apixaban held 11/15/2021 presumably for thoracentesis. Recommend resuming anticoagulation if H&H stable and no concern for bleeding. Check CBC in a.m.. (3) Nonsustained ventricular tachycardia: Code(s): I47.2 - Ventricular tachycardia Status: Acute Assessment and Plan: Nonsustained ventricular tachycardia noted yesterday, asymptomatic. Potassium and magnesium were normal No use of antiarrhythmic or AV tracy blocking agents on this patient due to his bradycardia (4) Chronic kidney disease, stage 3: Code(s): N18.3 - Chronic kidney disease, stage 3 (moderate) Status: Chronic Assessment and Plan: BUN stable, creat up a little. Permissive azotemia Daily BMP stable overall. (5) Anemia: Qualifiers: Anemia type: unspecified type Qualified Code(s): D64.9 - Anemia, unspecified Code(s): D64.9 - Anemia, unspecified Status: Acute Assessment and Plan: Severe anemia slow decline over the past several days no change from yesterday No evidence of active bleed. Continue to follow H&H closely. Platelet count slowly declining as well. He is currently off apixaban discontinued 11/15/2021. Subjective Date/time seen: Date of service: 11/18/21 13:54 Follow-up for chronic atrial flutter with slow ventricular response, CHF Patient states he feels much better and wants to go home. Patient denies shortness of breath, chest pain or palpitation. No new issues overnight. States he is eating well. Patient adamant he can do everything he is doing here in the hospital at home and does not want to stay. Review of Systems Constitutional: Constitutional: Reports fatigue, Denies fever(s) and Reports lethargy Eyes: Eyes: Reports no additional eye complaints ENT: Reports nasal discharge Cardiovascular: Cardiovascular: Denies chest pain, Denies pedal edema, Reports leg edema, Denies lightheadedness and Denies dyspnea Respiratory: Respiratory: Denies
[2021-11-18 15:09] LABS: Alveolar/Arterial O2 Gradient 234.4 mmHg; Base Excess ABG 6.2 mEq/l (+/-2.0); Fractional Inspired Oxygen 52 %; HCO3 ABG 33.6 mEq/l (22.0-26.0); Oxygen Content ABG 13.9 %vol (16.0-22.0); Oxyhemoglobin 89.3 % THb (90.0-100.0); PO2 ABG 65.2 mmHg (80.0-100.0); PO2 FiO2 Ratio Arterial Blood 1.25 %; pH ABG 7.341 (7.350-7.450)
[2021-11-18 15:14] LABS: Device HIGH FLOW NASAL CANN; Modified Allen's Test Pass; PCO2 ABG 63.5 mmHg (35.0-45.0); Site Drawn RIGHT RADIAL
--- NOTE | 2021-11-18 15:20 | PM.IMPN ---
Progress Note: A&P Assessment and Plan (1) Acute respiratory failure with hypoxia and hypercapnia: Code(s): J96.01 - Acute respiratory failure with hypoxia; J96.02 - Acute respiratory failure with hypercapnia Status: Acute Assessment and Plan: 11/14: ABG showed some hypercapnia with hypoxic respiratory failure, thought to be secondary to diastolic heart failure, repeat echo did show systolic heart failure as well, patient still requiring BiPAP for respiratory support, will attempt to wean as patient diuresis. No known history of COPD-- he is a former smoker, quit in 1978, no history of sleep apnea, will check [facility] tonight. Chest x-ray from today showed possible right lung collapse, will check CT chest. Consult pulmonology. 11/15: Appreciate pulmonology consultation, Chest CT showed moderate pulmonary edema, unable to tell if there was comorbid pneumonia, bilateral pleural effusions, no lung collapse. 11/16: Spoke with Dr. Kidd, pulmonology, he suspects hypercapnic respiratory failure secondary to diuresis, he recommends checking an ABG once patient is euvolemic. 11/17: worsening resp status, ABG showed hypoxia with worsening hypercapnia, put on hi-diann oxygen, repeat CXR showed worsening edema, diuresis increased. Appreciate cardiology recs re: diuresis 11/18: patient clinically much improved today after more aggressive diuresis yesterday, ABG pending, creatinine and sodium stable despite increased dose of Lasix yesterday, will start bumex 2 mg IV this evening and d/c lasix Update: ABG showed severe hypoxia with hypercapnia, but improved from previous reading, will continue oxygenating at current level and recheck tomorrow (2) Atrial fibrillation with slow ventricular response: Code(s): I48.91 - Unspecified atrial fibrillation Status: Acute Assessment and Plan: 11/14: Continue Eliquis, stable and rate controlled, in chronic atrial flutter requiring no AV node blockade 11/15: Stable on Eliquis (3) Congestive heart failure: Qualifiers: Heart failure chronicity: acute on chronic Heart failure type: diastolic Qualified Code(s): I50.33 - Acute on chronic diastolic (congestive) heart failure Code(s): I50.9 - Heart failure, unspecified Status: Chronic Assessment and Plan: 11/14: Echo from November 12, 2021 showed an EF of 45-50% with grade 2-3 diastolic dysfunction, no pulmonary hypertension noted, no significant valvular disease noted, no pericardial effusion seen, appreciate cardiology consultation, continue diuresis per the recommendations, anticipating shifting back to oral Lasix today per their note from yesterday, recommendations for today pending 11/15: Currently on Lasix 40 mg IV twice daily, diuresis per Cardiology, recommendations pending for today 11/16: Cont diuresis, monitor, appreciate cardio, improving 11/17: diuresis dose increased, patient worsening, appreciate cardio recs 11/18: See above for full plan (4) Chronic kidney disease, stage 3: Code(s): N18.3 - Chronic kidney disease, stage 3 (moderate) Status: Chronic Assessment and Plan: 11/14: Acute on chronic kidney disease, creatinine worsening at 2.4 today with diuresis, baseline around 1.7, will continue to monitor, anticipate this will improve the patient is switched back to oral diuresis. Due to significant anemia as well as worsening creatinine, will consult Nephrology for further management recommendations and outpatient follow-up. 11/15: Cancel Nephrology consultation, creatinine improving, will refer outpatient 11/16: Creatinine fluctuating due to permissive azotemia from diuresis, monitor 11/17: creatinine stable 11/18: Stable (5) GERD (gastroesophageal reflux disease): Code(s): K21.9 - Gastro-esophageal reflux disease without esophagitis Status: Acute Assessment and Plan: Stable, on no meds at this time (6) Lung infiltrate: Code(s): R91.8 - Other nonspecific abnor
[2021-11-18] MEDS: BUMETANIDE INJ 1 MG/4 ML VIAL 2 MG IV PUSH (17:53)
[2021-11-18] MEDS: ATORVASTATIN 20 MG TABLET PO (20:17)
[2021-11-18] MEDS: QUEtiapine FUMARATE 12.5 MG TABLET PO (20:18)
[2021-11-18 22:01] LABS: Albumin Pleural Fluid 2.1 g/dL
[2021-11-18] MEDS: traMADol HCL (*CRX) 50 MG TABLET PO (22:23)
[2021-11-19] VITALS (14 sets, daily range): BP systolic 109–128; BP diastolic 37–64; PULSE 38–79; RESP 12–24; TEMP 36.2–37.1; O2SAT 97–100
[2021-11-19] MEDS: LORazepam (*CRX) 0.5 MG TABLET PO ×2 (05:42→14:29)
[2021-11-19 06:04] LABS: Basophils Percent Auto 0.1 % (0.2-1.2); Eosinophils Absolute Auto 0.2 K/mm3 (0-0.3); Eosinophils Percent Auto 2.9 % (0-4.4); Hematocrit 25.5 % (42.0-52.0); Hemoglobin 7.7 g/dL (14.0-18.0); Immature Granulocyte Absolute 0.02 K/mm3 (0.00-0.031); Immature Granulocyte Percent A 0.3 % (0-0.5); Immature Platelet Fraction Pct 4.8 % (0.9-11.2); Lymphocytes Absolute Auto 0.97 K/mm3 (0.9-3.2); Lymphocytes Percent Auto 13.6 % (18.3-44.2); Mean Corpuscular HGB Conc 30.2 g/dl (32-36); Mean Corpuscular Hemoglobin 29.5 pg (26-34); Mean Corpuscular Volume 97.7 fl (80-100); Mean Platelet Volume 10.8 fl (7.4-10.4); Monocytes Absolute Auto 0.5 K/mm3 (0.1-0.6); Monocytes Percent Auto 6.6 % (2.6-8.5); Neutrophils Absolute Auto 5.4 K/mm3 (1.3-6.7); Neutrophils Percent Auto 76.5 % (45.5-73.1); Platelet Count Result 109 k/mm3 (150-375); Red Blood Count 2.61 M/mm3 (4.6-6.20); Red Cell Distribution Width 16.1 % (11.5-14.5); White Blood Count 7.1 K/mm3 (4.5-10.0)
[2021-11-19 06:13] LABS: Alanine Aminotransferase 17 U/L (6-50); Albumin Level 3.7 g/dL (3.5-5.1); Alkaline Phosphatase 94 U/L (38-126); Anion Gap 8 mmol/L (8-16); Aspartate Amino Transferase 30 U/L (17-59); Bilirubin,Total 0.7 mg/dL (0.2-1.3); Blood Urea Nitrogen 65 mg/dL (9-20); Calcium 7.4 mg/dL (8.4-10.2); Carbon Dioxide 36 mmol/L (22-30); Chloride 91 mmol/L (98-107); Estimated CRCL calculation 29 ml/min; Estimated Glomerular Filt Rate 28; Glucose 96 mg/dL (65-110); Potassium 3.7 mmol/L (3.4-5.0); Sodium 135 mmol/L (137-145)
[2021-11-19 07:58] LABS: NT Pro B Type Natriuretic Pept 7300 pg/mL (5-100)
--- NOTE | 2021-11-19 08:45 | PM.PNPUL ---
Progress Note: A&P Assessment and Plan (1) Lung infiltrate: Code(s): R91.8 - Other nonspecific abnormal finding of lung field Status: Acute Assessment and Plan: 11/14 Patient with a chest x-ray demonstrating cardiomegaly, small left pleural effusion, vascular congestion which overall has improved since 11/13/2021. There is concern for possible right lower lobe collapse and the patient is scheduled to get a CT scan. Further recommendations following CT scan. Patient has no leukocytosis, is afebrile and was started on Zosyn for possible pneumonia on 11/13. No blood cultures were sent. The infiltrates on his chest x-ray have improved over the last 18 hours and I doubt that this these infiltrates represented pneumonic process. This is more likely fluid. Will check a BNP in the morning. At this time I would continue the Zosyn and follow him clinically. Regarding his hypercarbic and hypoxic respiratory failure. The etiologies include fluid overload, and I doubt he has a significant component of COPD although he would need outpatient PFTs to assess this. He does have morbid obesity with a BMI of 38.3. He may have obesity hypoventilation syndrome. Once he is clinically improved will check a daytime ABG to assess for chronic hypercarbic respiratory failure indicative of obesity hypoventilation syndrome He may also have obstructive sleep apnea and will need an outpatient polysomnogram to determine this. TSH on 04/15/2020 was 1.98 and I will repeat thyroid studies tomorrow. he is tolerating his current BiPAP settings of rate of 20, 14/6, inspiratory time 0.9, rise of 2 and 40% well with a blood gas of 7.41/51/71, will continue these settings p.r.n. and a t night for now. He does have a tobacco history but has never been on inhalers and he has no wheezing at this time. I do not feel a need for bronchodilators, inhaled steroids or systemic steroids at this point. Of note if he does have lobar collapse it likely represents mucus plugging and at that point he may benefit from bronchodilators. 11/15 patient has no lobar collapse on his CT scan from 11/14 but he does have left greater than right pleural effusions and congestion with an elevated BNP today at 7930. He has an EF of 45-50% and grade 2 diastolic dysfunction and has been diuresed aggressively with -4.1 L since admission and a rising creatinine at 2.3 today. He has never had a white blood cell count and never had a fever. I suspect fluid overload is the main reason for his respiratory failure and agree with aggressive diuresis as tolerated by his cardiac and renal systems. Agree with Zosyn for now and today is day 3. In order to optimize his pulmonary function recommend left thoracentesis with Assessment for transudate, exudate, infection and malignancy.. Will hold apixaban today. The patient may have obesity hypoventilation syndrome and after he is optimized will check a daytime ABG to document whether not he has daytime hypercarbia. I have increased his FiO2 to 50% on his BiPAP. 11/16 Patient remained off BiPAP throughout the day yesterday and was on 6 L nasal cannula. Patient wore BiPAP with full face mask in the evening and said that it did help him sleep. Currently the patient is off BiPAP on on 6 L nasal cannula saturations 93%. Overall he still says he is short of breath with a mild cough and mild phlegm production. He has no hemoptysis the phlegm is described as clear. He continues to diurese on lasix 40 IV BID and through yesterday he is -4.5 L. Cr is 2.4. his white blood cell count is 7.6. He is afebrile and today is day 4 of Zosyn. he is scheduled for left thoracentesis later today. Will DC zosyn after 5 days. The patient told me that he has worn a BiPAP or CPAP mask before at last admission at [facility] and that he took this machine to [facility]. He said his machine is at [facility]. We called Ramírez joseph
[2021-11-19] MEDS: GABAPENTIN 300 MG CAPSULE PO ×3 (08:52→17:55)
[2021-11-19] MEDS: rOPINIRole HCL 1 MG TABLET 2 MG PO ×3 (08:52→17:54)
[2021-11-19] MEDS: APIXABAN 2.5 MG TABLET PO (08:53)
[2021-11-19] MEDS: DULoxetine HCL 30 MG CAPSULE.DR PO (08:53)
[2021-11-19] MEDS: FINASTERIDE 5 MG TABLET PO (08:53)
[2021-11-19] MEDS: BUMETANIDE INJ 1 MG/4 ML VIAL 2 MG IV PUSH (08:53)
[2021-11-19] MEDS: amLODIPine BESYLATE 5 MG TABLET 10 MG PO (08:53)
[2021-11-19] MEDS: LORATADINE 10 MG TABLET PO (08:54)
--- NOTE | 2021-11-19 09:07 | PCNWS ---
Weekly nutritional screen. Patient is tolerating current diet, heart healthy, soft and bite sized/level 6 with adequate intake charted at 100%. Pt reports good appetite. No weight loss reported. No nutritional needs at this time.
--- NOTE | 2021-11-19 11:17 | PCOTNOTE ---
Attempted to see patient this am, however patient refused. I ain't ever seen a place like it, wantin' you to do all this stuff. I done walked from here to there with that thing and sat in this chair. I ain't doing it. They already got me doing it 5 days a week over there. Now they're trying to get me out of here, and you want me to do this. I'm not doing it. Unbelievable.
--- NOTE | 2021-11-19 11:26 | PCRCNOTE ---
LVM FOR CARE COORD. OLEARY TO ENSURE DR MATTHEWS RECOMMENDATIONS FOR BIPAP OR TRILOGY UNIT AND 02 NEEDS IS RELAYED TO SKILLED NURSING WHEN DISCHARGED.
--- NOTE | 2021-11-19 11:30 | PCRCNOTE ---
RECOMMENDATIONS FOR RESPIRATORY NEEDS PER DR. KHALIL: AVAPS-AE UNIT IN AUTO MODE, TIDAL VOLUME 500, EPAP MINIMUM 5, EPAP MAXIMUM 15, MINIMUM INSPIRATORY PRESSURE 6, MAXIMUM INSPIRATORY PRESSURE 25, INSPIRATORY TIME 1.0, RISE TIME OF 3, 6 L BLEED IN OR BIPAP UNIT 16/ WITH BACKUP RATE OF 20 AND 6 L BLEED IN. TITRATE O2 TO KEEP SATS >=88%
--- NOTE | 2021-11-19 14:06 | PCPTNOTE ---
Patient refused treatment this session due to anticipated discharge.
[2021-11-19 15:13] LABS: EDCOVIDSCREEN Negative (Negative)
[2021-11-19 15:52] LABS: Glucose Pleural Fluid 117 mg/dL; Total Protein Pleural Fluid 3.3 g/dL
--- NOTE | 2021-11-20 18:07 | PM.DS ---
DS: Admitting Diagnosis Discharge Date 11/19/21 Admitting Diagnosis Shortness of breath DS: Discharge Diagnosis Discharge Diagnosis (1) Acute respiratory failure with hypoxia and hypercapnia: Code(s): J96.01 - Acute respiratory failure with hypoxia; J96.02 - Acute respiratory failure with hypercapnia Status: Acute Assessment and Plan: 11/14: ABG showed some hypercapnia with hypoxic respiratory failure, thought to be secondary to diastolic heart failure,? repeat echo did show systolic heart failure as well,? patient still requiring BiPAP for respiratory support, will attempt to wean as patient diuresis. No known history of COPD-- he is a former smoker, quit in 1978, no history of sleep apnea, will check [employer]. Chest x-ray from today showed possible right lung collapse, will check CT chest. Consult pulmonology. 11/15: Appreciate pulmonology consultation, ? Chest CT showed moderate pulmonary edema, unable to tell if there was comorbid pneumonia, bilateral pleural effusions, no lung collapse. 11/16: Spoke with Dr. Kidd, pulmonology, he suspects hypercapnic respiratory failure secondary to diuresis, he recommends checking an ABG once patient is euvolemic. 11/17: worsening resp status, ABG showed hypoxia with worsening hypercapnia, put on hi-diann oxygen, repeat CXR showed worsening edema, diuresis increased. Appreciate cardiology recs re: diuresis ?11/18: patient clinically much improved today after more aggressive diuresis yesterday, ABG pending, creatinine and sodium stable despite increased dose of Lasix yesterday, will start bumex 2 mg IV this evening and d/c lasix Update: ABG showed severe hypoxia with hypercapnia, but improved from previous reading, will continue oxygenating at current level and recheck tomorrow 11/19: Appreciate pulmonology consultation, patient will be discharged on AVAPS at night in 8 L nasal cannula during the day, this can be done at his facility From a pulmonary perspective patient is stable for discharge on these pulmonary medicines: ?oxygen per protocol at [facility].? Currently the patient is requiring 8 L nasal cannula at rest and his saturations are 99%.? Goal saturations 88-92% at rest and with ambulation. ? When patient sleeps are naps AVAPS-AE mode rate auto, tidal volume 500, EPAP minimum 5,? EPAP maximum 15, minimal inspiratory pressure 6, maximal inspiratory pressure 25, inspiratory time 1.0, rise of 3, 6 L bleed in with titration to keep satustaions >=88%. ? Diuretic regimen per hospitalist and cardiology team. ?follow-up in? Pulmonary Clinic in 3-4 weeks. ? Patient should have outpatient PFTs, download compliance,? split night sleep study.? I have contacted our occupational therapy assist. (2) Atrial fibrillation with slow ventricular response: Code(s): I48.91 - Unspecified atrial fibrillation Status: Acute Assessment and Plan: Continue Eliquis, stable rate controlled in chronic atrial flutter (3) Acute on chronic combined systolic and diastolic CHF (congestive heart failure): Code(s): I50.43 - Acute on chronic combined systolic (congestive) and diastolic (congestive) heart failure Status: Acute Assessment and Plan: 11/14: Echo from November 12, 2021 showed an EF of 45-50% with grade 2-3 diastolic dysfunction, no pulmonary hypertension noted, no significant valvular disease noted, no pericardial effusion seen, appreciate cardiology consultation, continue diuresis per the recommendations, anticipating shifting back to oral Lasix today per their note from yesterday, recommendations for today pending 11/15: Currently on Lasix 40 mg IV twice daily, diuresis per Cardiology,? recommendations pending for today 11/16: Cont diuresis, monitor, appreciate cardio, improving 11/17: diuresis dose increased, patient worsening, appreciate cardio recs ?11/18: See above for full plan (4) Chronic kidney disease, stage 3: Code(s): N18.3 - Chronic kidney disease, stage 3 (moderate
[2021-11-22 12:56] LABS: Amylase, Pleural Fluid 37 U/L
== END 2021-11-19 19:01 | DRG 291 ==
LOC: ANHED 18:26 → ANHIMU 20:48
PROVIDERS: Internal Medicine; Internal Medicine Pulmonary Disease; Physician Assistant; Admitting Provider Internal Medicine; Emergency Provider Emergency Medicine; PCP Family Medicine; Visit Provider Student in an Organized Health Care Education/Training Program
DX: I13.0 Hypertensive heart and chronic kidney disease with heart failure and stage 1 through stage 4 chronic kidney disease, or unspecified chronic kidney disease (principal); I50.43 Acute on chronic combined systolic (congestive) and diastolic (congestive) heart failure; J96.22 Acute and chronic respiratory failure with hypercapnia; J96.21 Acute and chronic respiratory failure with hypoxia; I48.92 Unspecified atrial flutter; E66.2 Morbid (severe) obesity with alveolar hypoventilation; I48.20 Chronic atrial fibrillation, unspecified; I47.2 Ventricular tachycardia; J90 Pleural effusion, not elsewhere classified; Z68.38 Body mass index [BMI] 38.0-38.9, adult; E11.22 Type 2 diabetes mellitus with diabetic chronic kidney disease; N18.30 Chronic kidney disease, stage 3 unspecified; D64.9 Anemia, unspecified; F41.8 Other specified anxiety disorders; E78.5 Hyperlipidemia, unspecified; R91.8 Other nonspecific abnormal finding of lung field; M19.042 Primary osteoarthritis, left hand; M19.041 Primary osteoarthritis, right hand; M50.30 Other cervical disc degeneration, unspecified cervical region; M19.019 Primary osteoarthritis, unspecified shoulder; K21.9 Gastro-esophageal reflux disease without esophagitis; I87.2 Venous insufficiency (chronic) (peripheral); Z79.01 Long term (current) use of anticoagulants; Z87.891 Personal history of nicotine dependence; Z85.51 Personal history of malignant neoplasm of bladder; Z90.49 Acquired absence of other specified parts of digestive tract; Z86.16 Personal history of COVID-19
CPT/HCPCS: 32555; 36415; 36600; 71045; 71046; 71250; 80048; 80053; 82042; 82150; 82805; 82945; 83036; 83615; 83735; 83880; 83986; 84100; 84157; 84311; 84439; 84443; 84478; 84484; 85025; 85027; 85055; 85610; 85730; 87015; 87070; 87075; 87102; 87116; 87205; 87206; 87426; 88108; 88184; 88305; 89051; 92611; 93005; 94002; 94003; 94640; 94762; 96374; 97110; 97161; 97165; 97530; 99285; A9270; C8929; C9803; J1630; J1940; J2060; J2405; J2543; Q9957; U0003; U0005